=== PATIENT | male | born 1930 | race Caucasian/White ===

== ENCOUNTER 2016-10-24 19:34 | Inpatient (IN) | payer MEDICARE ==
[~2016-10-24] VITALS: Ht 176.5 cm; Wt 72.5 kg
[~2016-10-24 19:34] MED LIST: ASPI-973 PO; AZIT2.5D4 OD; CARV12.52 PO; FURO-129 PO; ISOS30TA4 PO; LORA-302 PO; NITR0.4T PO; PRED50TA PO; SODI325T PO; SYN75 PO
[2016-10-24 19:43] VITALS: BP 106/55; PULSE 77; RESP 18; O2SAT 97
--- NOTE | 2016-10-24 19:59 | ED.REPORT ---
HPI-General Illness Date of Service Oct 24, 2016 ED Provider: Jagjit Saleem MD An 85 year old male with a history of stage IV CKD, squamous cell carcinoma, CHF , COPD, diabetes, stroke and hyperlipidemia presents to the ED via EMS complaining of generalized weakness and fatigue that began a couple weeks ago. He recently had a fall 3 days ago but reports that he has been able to move around his home with the assistance of his . He presents today because of the increasingly worse fatigue. Patient has been sleeping excessively over the past few days. Patient has also been experiencing diarrhea, generalized myalgia and difficulty swallowing. Patient stopped taking Lasix 2 times per day because of dizziness and recently switched to 1 Lasix per day. Patient is not currently on dialysis. He denies fever or vomiting. Nursing Notes Stated Complaint: GENERALIZED WEAKNESS Chief Complaint: General Complaint Nursing Notes Reviewed: Yes Allergies: Coded Allergies: dabigatran etexilate (Verified Allergy, Severe, SEVERE BLEEDING, 09/07/16) heparin (Verified Allergy, Severe, Arrhymia and A. Fib, 09/07/16) cephalexin (Verified Allergy, Intermediate, Diarrhea, 09/07/16) losartan (Verified Allergy, Intermediate, Yee and diarrhea, 09/07/16) moxifloxacin HCl (Verified Allergy, Intermediate, Rash, 09/07/16) colchicine (Verified Allergy, Unknown, Diarrhea, 09/07/16) cefuroxime (Verified Adverse Reaction, Intermediate, Diarrhea, 09/07/16) Scheduled Aspirin (Aspirin) 81 Mg Tablet 81 MG PO HS Azithromycin (Azasite) 2.5 Ml Drops 2.5 ML OD BID 2 days daily 5 d 1 drop in Right eye twice a day for 2 days then 1 drop once a day for 5 additional days. Carvedilol (Carvedilol) 12.5 Mg Tablet 18.75 MG PO BIDWM Furosemide (Lasix) 20 Mg Tablet 160 MG PO DAILY Isosorbide MN ER (Isosorbide MN ER) 30 Mg Tab.er.24h 60 MG PO QAM Levothyroxine (Synthroid) 75 Mcg Tablet 75 MCG PO DAILY Prednisone (PredniSONE) 50 Mg Tablet 50 MG PO DAILY Sodium Bicarbonate (Sodium Bicarbonate) 325 Mg Tablet 650 MG PO BID Scheduled PRN Lorazepam (Ativan) 0.5 Mg Tablet 0.5 MG PO BID PRN PRN Tremor Nitroglycerin SL (Nitrostat) 0.4 Mg Tab.subl 0.4 MG PO Q5MIN PRN PRN For Chest Pain General Time Seen by MD: 19:55 Chief Complaint Weakness Hx Obtained From: Patient Arrived By: Walk-in Sudden in Onset?: No Onset Occurred: More than a week ago... (2 weeks) Symptom Duration: Since onset Quality: Painful (Generalized pain ) Radiation: : Does not radiate Severity: Current: Mild Severity: Maximum: Mild Associated with: Reports: Difficulty swallowing, Dizziness, Weakness, Denies: Fever, Vomiting Pertinent Negative: Pt denies other symptoms Recent Healthcare: No recent doctor visit, No recent hospitalization Past Medical History Past Medical History Notes: PCP: Dr. Navarrete Scientific Associate: Dr. Parmar Admitted to the hospital in February 2015, for NSTEMI, atrial fibrillation, CHF, and CAD. Patient was scheduled ablation and pacemaker insertion on discharge. Past Medical History Hx of C-diff Kidney disease stage IV squamous cell carcinoma Gout Reports: Congestive heart failure, Coronary artery disease, Diabetes mellitus, Hyperlipidemia, Hypertension, Stroke Reports: Atrial fibrillation Past Surgical History Triple A repair Lumbar spine surgery Reports: Pacemaker insertion Family History Noncontributory Smoking History Former Smoker Social History Alcohol Use: Denies alcohol use Other Social History: Good social support, , Local resident Ambulatory Status Independent Review of Systems Pt reports generalized pain, excessive sleep and difficult swallowing Full Review of Systems Constitutional: Reports: Fatigue, Malaise, Weakness - generalized, Denies: Chills, Fever Respiratory: Denies: Shortness of breath Cardiovascular: Denies: Chest pain GI: Reports: Diarrhea, Denies: Abdominal pain, Nausea, Vomiting Neurologic: Reports: Dizziness, Weakness, Denies: Change LOC Complete sys rev & neg: except as marked. Physical Exam Vital Signs Vital Signs Date Time Temp Pulse Resp B/P Pulse Ox O2 Delivery O2 Flow Rate FiO2 10/24/16 22:00 81 18 117/47 95 Room Air 10/24/16 19:43 35.8 77 18 106/55 97 Room Air Initial VS: Reviewed Head / Eyes: Atraumatic, Normocephalic, PERRL Skin: Warm, Dry, No cyanosis Neurologic: Alert, Oriented, Nonfocal Psychiatric: Mood/affect normal, Behavior normal, Normal thought content General/Constitutional: Awake, Alert Respiratory / Chest: Atraumatic RESPIRATORY: Fine base crackles Click in the upper sternal boarder Cardiovascular: Heart rate NL, Regular rhythm, Heart sounds NL, No gallop Heart Sounds / Murmur: Positive: Murmur present... (III/ machine murmur ) Lower Ext Edema: Positive: Bilateral 3+, Pitting CARDIO: Jugular vein distended Abdomen: Atraumatic, Soft, Non-tender Organomegaly / Mass / Hernia: Positive: Hepatomegaly ABDOMEN: Midline surgical scar Upper Extremities Upper Extremity / MS: Atraumatic, Neurologic intact, Vascular intact Lower Extremity / Pelvis / MS: Atraumatic, Neurologic intact, Vascular intact Interpretation & Diagnostics Lab Results Interpretation Result Diagram: 10/24/16199910/24/161999 Test 10/24/16 20:00 White Blood Count 7.3th/mm3 (3.8-10.1) Red Blood Count 3.43mil/mm3 (4.40-5.80) Hemoglobin 10.2g/dL (13.8-17.2) Hematocrit 32.3% (41.0-50.0) Mean Corpuscular Volume 94.2fL (81-100) Mean Corpuscular Hemoglobin 29.7pg (27.0-35.0) Mean Corpuscular Hemoglobin Concent 31.6% (32.0-37.0) Red Cell Distribution Width 15.5% (12.3-15.4) Platelet Count 122bil/L (150-400) Neutrophils (%) (Auto) 80.6% (40-74) Lymphocytes (%) (Auto) 6.6% (14-46) Monocytes (%) (Auto) 11.7% (4-12) Eosinophils (%) (Auto) 0.6% (0-5) Basophils (%) (Auto) 0.4% (0-3) Sodium Level 140mEq/L (134-144) Potassium Level 4.3mEq/L (3.5-5.2) Chloride Level 96mEq/L (97-108) Carbon Dioxide Level 26mmol/L (18-29) Blood Urea Nitrogen 106mg/dL (8-27) Creatinine 3.70mg/dL (0.76-1.27) Estimat Glomerular Filtration Rate 17mL/min (>59) Glucose Level 151mg/dL (60-99) Calcium Level 8.9mg/dL (8.5-10.1) Magnesium Level 2.3mg/dL (1.6-2.6) Total Bilirubin 0.8mg/dL (0.0-1.2) Aspartate Amino Transf (AST/SGOT) 12U/L (0-50) Alanine Aminotransferase (ALT/SGPT) 9U/L (0-44) Alkaline Phosphatase 94U/L (25-160) Troponin T 0.119ug/L (0.0-0.011) Pro-B-Type Natriuretic Peptide 44018pd/mL (0-486) Total Protein 7.2g/dL (6.4-8.4) Albumin 3.4g/dL (3.4-5.0) Hold Palomo Top Tube Received (Received) ECG Interpretation ECG Interpretation: Ventricular paced Rate 70 Time: 21:03 Interpreted by: ED physician X-Ray Chest Interpretation Chest Xray Interpretation: IMPRESSION: Changes more consistent with bilateral lower lobe pneumonias than of congestive failure. Dictated by: Bruno Frias M.D. on 10/24/2016 at 20:26 Interpretation / Wet Read by: Interpret - Radiologist Re-Eval/Medical Decision Med Decision/Clinical Course Elderly male with congestive heart failure and fluid overload as well as worsening chronic renal failure. Recently had diuretics titrated up and his blood pressure did not tolerate. Presenting today with profound fatigue and rising BUNs has an increased troponin and markedly increased BNP. Also chest x-ray appears to have progressed in terms of his disease. Do not believe that he has an actual infectious pneumonia based on the clinical presentation. He admitted on observation status to the hospitalist service for further evaluation and treatment. Discussed starting IV Lasix in the emergency department tonight with the admitting hospitalist and she asked that we not do that. Discussed CODE STATUS with the patient presents of his ; wishes to be full code. Time of Eval: 22:07 Patient Status: Condition improved Re-Evaluation/Progress Note: Patient is rechecked. He is informed of his lab results, EKG results, X-ray results and diagnosis. All of the patient's questions are addressed. He is asked to consider admission to the hospital. Code status is discussed. Patient would like to be full code. Consultation : Referral / Consult Name: Shirlene Arora MD Consulted With: Hospitalist Call Returned at: 22:22 Steel Sampler: Will see patient, Agrees with eval, Agrees with plan, Accepts admit Note: Patient will not receive diuretics. Counseled Regarding: Diagnosis, Lab results, Need for admission Discharge & Departure Primary Impression: Acute renal failure Acute renal failure type: unspecified Qualified Code: N17.9 - Acute kidney failure, unspecified Additional Impression: Congestive heart failure Congestive heart failure type: unspecified congestive heart failure type Congestive heart failure chronicity: unspecified congestive heart failure chronicity Qualified Code: I50.9 - Heart failure, unspecified Disposition: ADMITTED TO HOSPITAL Discharge Condition All VS Reviewed: Yes Condition: Stable Referrals: Mino Navarrete MD (PCP) Scribe Attestation Portions of this note were transcribed by Ab Mendiola. I, Dr. Saleem personally performed the history, physical exam and medical decision-making; I reviewed and confirmed the accuracy of the information in the transcribed note. Signed by: Ab Mendiola, 10/24/16, 2230. copies to: Mino Navarrete MD; Ganga Parmar Donald L MD Oct 24, 2016 19:59 AB MENDIOLA Oct 24, 2016 20:29
[2016-10-24 20:18] LABS: BASOPHILS % (AUTO) 0.4 % (0-3); EOSINOPHILS % (AUTO) 0.6 % (0-5); MONOCYTES % (AUTO) 11.7 % (4-12); Mean Corpuscular Hemoglobin 29.7 pg (27.0-35.0); Mean Corpuscular Volume 94.2 fL (81-100); NEUTROPHILS % (AUTO) 80.6 % (40-74); Platelet Count 122 bil/L (150-400)
--- NOTE | 2016-10-24 20:29 | DRSVH ---
PROCEDURE: X-RAY CHEST ONE VIEW, PORTABLE ([id number]) INDICATIONS: weakness TECHNIQUE: One view of the chest was acquired. COMPARISON: [facility], CR, XR CHEST 2VW, 09/11/2016, 17:22. 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 Lungs and pleura: No pleural effusions or pneumothorax. There are by lateral retrocardiac basilar pa tchy density consistent with bilateral lower lobe pneumonias. Differential would be chronic congestiv e failure which I think is less likely to be occurring. Mediastinum: Mediastinal contours appear normal. Heart size is normal. Bones and chest wall: No suspicious bony lesions. Overlying soft tissues appear unremarkable. IMPRESSION: Changes more consistent with bilateral lower lobe pneumonias than of congestive failure. Dictated by: Bruno Frias M.D. on 10/24/2016 at 20:26 Approved by: Bruno Frias M.D. on 10/24/2016 at 20:26
[2016-10-24 20:50] LABS: Magnesium 2.3 mg/dL (1.6-2.6)
[2016-10-24 20:58] LABS: TROPONIN T 0.119 ug/L (0.0-0.011)
[2016-10-24 22:00] VITALS: BP 117/47; PULSE 81; RESP 18; O2SAT 95
[2016-10-24] MEDS ORDERED: Furosemide 10 mg/mL 10 mL Inj IVPUSH ONE (22:20)
[2016-10-24 23:36] VITALS: PULSE 74
[2016-10-24 23:41] LABS: APPEARANCE,URINE SLIGHTLY CLOUDY (CLEAR,HAZY); COLOR,URINE YELLOW (YELLOW); OCCULT BLOOD,URINE MODERATE (NEGATIVE); PH,URINE 5.5 (5.0-8.0); UROBILINOGEN,URINE NORMAL (NORMAL)
[2016-10-24 23:43] VITALS: BP 116/70; PULSE 81; RESP 18; O2SAT 95
[2016-10-25] VITALS (7 sets, daily range): BP systolic 107–118; BP diastolic 63–82; PULSE 70–78; RESP 18–20; O2SAT 94–97
[2016-10-25] MEDS ORDERED: Alum-Mag Hydrox-Simeth 30 mL Suspension PO PRN (00:30)
[2016-10-25] MEDS ORDERED: Polyethylene Glycol (PEG) 17 Gm Powder PO PRN (00:30)
[2016-10-25] MEDS ORDERED: Ondansetron 2 mg/mL 2 mL Inj IVPUSH PRN (00:30)
[2016-10-25] MEDS ORDERED: Senna-Docusate 8.6-50 mg Tablet PO PRN (00:30)
--- NOTE | 2016-10-25 01:15 | NUR ---
Admit note: Pt admitted from ER, was able to ambulate with one assist to the bed, denied dizziness. Alert and oriented x3. Has been ill over the last couple of weeks with increased weakness and decreased appetite the last couple of days. Denies shortness of breath, although states over the last month he occasionally has to breath deep to "catch his breath". Pt is on RA 95%. Slightly decreased lung sounds in the bases with faint crackles. Pt states he is supposed to eat a "mushy, thick liquid" diet; not always compliant per . Tele AV paced in the 70s per telephone clerk telegraph office. Bed alarm activated and pt aware to call for safe assistance as needed for pt safety.
[2016-10-25 01:46] LABS: INR 1.16 ratio
--- NOTE | 2016-10-25 03:24 | PCM.HPMED ---
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 Patient is accompanied by his , who is his primary drive man, to the ED. They both report that he has been increasingly fatigued, somnolent, and dyspneic in the past couple of weeks, but worse in the last few days. reports that patient has been laboring to breath more in the past few days. They deny any fever, cough, sick contact, anginal symptoms, or N/V/D. He has had 2-3 BMs daily, but this is his baseline and the stool is not watery or bloody. He denies any dysuria but endorses some frequency due to his Lasix. His oral intake has been decreasing and he has experienced some weight loss. reports that patient did experience a fall 3 days ago, but it was not very traumatic and patient did not lose consciousness or hit his head. He simply slipped out of his chair onto the ground. He does have chronic dysphagia, likely from the SCC and radiation of his neck. He is on a "mushy" renal diet at home. Patient reports that he saw his alumni relations coordinator recently and was recommended to increase his Lasix to 160mg daily due to the increase edema of his legs. reports that patient did do this for a few days but developed dizziness, so his [facility] instructed him to return to 80mg daily, which he is currently taking. In the ED, patient's EKG showed ventricular paced rhythm with rate of 70. His CBC shows Hct of 32.3, which is his baseline. He did have increased neutrophils of 80.6%, with WBC of 7.3. His CMP was pertinent for BUN of 106 with Creatinine of 3.70, which are both elevated compared to his baseline CKD. His Troponin was elevated at 0.119, which is his baseline. [place] BNP was 385[address], which is almost double the value from about 1 month ago. His TSH was elevated at 5.68 and his FT4 was 8.04. He was not given any Lasix in the ED. Patient's UA did reveal moderate blood, Large Leukocytes, and packed urine WBC. Patient did have an Echocardiogram from 07/2016 which showed LVEF of 30-35% with moderate to severe MR and moderate right sided pleural effusion. Review of Systems: 12 point ROS negative except as stated in HPI Allergies Coded Allergies: dabigatran etexilate (Verified Allergy, Severe, SEVERE BLEEDING, 10/25/16) heparin (Verified Allergy, Severe, Arrhymia and A. Fib, 10/25/16) cephalexin (Verified Allergy, Intermediate, Diarrhea, 10/25/16) losartan (Verified Allergy, Intermediate, Yee and diarrhea, 10/25/16) moxifloxacin HCl (Verified Allergy, Intermediate, Rash, 10/25/16) colchicine (Verified Allergy, Unknown, Diarrhea, 10/25/16) cefuroxime (Verified Adverse Reaction, Intermediate, Diarrhea, 10/25/16) Home Medications From [employer] Accu-Chek Advantage Diabetes Kit check blood sugar 1-2 times every week allopurinol 100 mg tablet take 1 tablet by oral route once every day as needed. Aspirin Low Dose 81 mg tablet,delayed release take 1 tablet by oral route every day atorvastatin 40 mg tablet take 1 tablet by oral route every day for high cholesterol. Blood Glucose Monitoring kit use to check blood sugar 1 time daily Blood Glucose Test strips use to check blood sugar 1 times daily Coreg 25 mg tablet take 1 tablet by oral route 2 times every day with food Epogen 3,000 unit/mL injection solution inject (100UNITS/KG) by subcutaneous route every week fluticasone 50 mcg/actuation nasal spray,suspension spray 2 spray by intranasal route every day in each nostril as needed furosemide 80 mg tablet take 1 tablet by oral route every day isosorbide mononitrate ER 30 mg tablet,extended release 24 hr Take 3 tablets by oral route every day in the morning levothyroxine 75 mcg tablet take 1 tablet by oral route every day nitroglycerin 0.[address] 1 tablet by sublingual route at the 1st sign of attack; may repeat every 5 min until relief; if pain persists after 3 tablets in 15 min, prompt medical attention is recommended sodium bicarbonate 325 mg tablet take 2 tablets orally twice daily. PMH PMH Past Medical History 1. Atrial fibrillation, paroxysmal- not on anticoagulation due to bleeding history 2. Congestive heart failure 3. Coronary artery disease, with myocardial infarction in 1984, and probable acute coronary syndrome in 2012, NSTEMI 02/28 (no interventions) 4. Hyperlipidemia. 5. Diabetes mellitus type 2, diet controlled. 6. Abdominal aortic aneurysm, status post repair. 7. Chronic kidney disease, stage 4 8. H/O Gout. 9. Hypothyroidism. 10. Hypertension. 11. Bilateral carotid stenosis. 12. History of C. difficile colitis, 2012. 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 14. Chronically elevated troponin. 15. History of squamous cell carcinoma of the skin. Status post Mohs surgery in October 2014 and radiation. Surgical History 1. Abdominal aortic aneurysm repair. 2. Back surgery. 3. Right total hip arthroplasty. 4. Tonsillectomy. 5. Skin cancer excision, right neck. 6. AV camilla ablation with pacemaker 02/28 Family History Noncontributory Social History Hx Alcohol Use: Yes (occassionally) Hx Substance Use: No Hx Tobacco Use: Yes Smoking Status: Former Smoker Additional Information Patient is a local resident. Lives with his in [place]. 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 Quit smoking tobacco in 1994 after around [id number] history. Rare alcohol ingestion. Currently uses 4WW for ambulation assist. At most, can only ambulate from bedroom to bathroom before getting dyspneic. Exam Vital Signs Vital Sign - Last Date Time Temp Pulse Resp B/P Pulse Ox O2 Delivery O2 Flow Rate FiO2 10/24/16 23:12 36.1 80 18 114/53 94 Room Air Exam Gen: Thin male in NAD HEENT: PERRL, EOMI, Oropharynx non-erythematous, neck soft and nontender CV: RRR with 3/6 systolic murmur, JVD noted to angle of jaw. Resp: Soft bibasilar rales, no wheezing or rhonchi Abd: Soft, nontender, normoactive BS MSK: Muscle strength grossly intact and equal Neuro: Light sensation grossly intact and equal, Alert and Oriented x3 Skin: Warm Dry Intact. Numerous ecchymosis of arms. Psych: Appropriate mood and affect Lab and Diagnostics Result Diagram: 10/24/16199910/24/161999 X-Rays, CTs and MRIs PROCEDURE: X-RAY CHEST ONE VIEW, PORTABLE ([id number]) INDICATIONS: weakness TECHNIQUE: One view of the chest was acquired. COMPARISON: [facility], CR, XR CHEST 2VW, 09/11/2016, 17:22. 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 Lungs and pleura: No pleural effusions or pneumothorax. There are by lateral retrocardiac basilar patchy density consistent with bilateral lower lobe pneumonias. Differential would be chronic congestive failure which I think is less likely to be occurring. Mediastinum: Mediastinal contours appear normal. Heart size is normal. Bones and chest wall: No suspicious bony lesions. Overlying soft tissues appear unremarkable. IMPRESSION: Changes more consistent with bilateral lower lobe pneumonias than of congestive failure. 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 Generalized Weakness -Likely secondary to Acute Exacerbation of CHF due to elevated JVD, BNP-88932, increased SOB, and peripheral edema, but DDx includes Pneumonia, UTI, Uremia -Plan to increase IV Lasix to 80mg BID. -Continue to closely monitor I/Os Hyperthyroidism -TSH 5.68, FT4 of 8.04 -DDx Apathetic Thyrotoxicosis, Thyroiditis, malignancy, pituitary tumor. -Consider imaging workup and methimazole -Hold Levothyroxine. Chronic Kidney Disease, Stage IV, POA -Patient's most recent SCr was 3.13 with BUN of 94. Current Phos is 6.2. -Patient does receive Neupogen injections for his chronic Anemia secondary to renal disease. -Continue Sodium Bicarb -Nephrology Consult pending. Chronic Dysphagia, POA -Secondary to SCC of neck s/p radiation. -Dysphagia Mechanical Diet Paroxysmal Atrial Fibrillation, POA -Place patient on Telemetry -EKG shows functional pacemaker with ventricular pacing, rate of 70. -Not on anticoagulation due to bleeding history CAD, POA -Per alumni relations coordinator notes, patient is medically treated due to CKD. -Continue Coreg 25mg BID, Atorvastatin, Isosorbide Mononitrate ER -Continue ASA 81mg DM2, POA -Diet Controlled, stable Abnormal UA, -Large Leukocytes, urine WBC cast, and moderate blood -Pt denies any urinary symptoms besides some frequency, which is baseline for him. -Cultures pending. Pain Evaluation: Adequate Pain Control Resuscitation Status: CPR: Attempt Resuscitation (DPOA is his Yvrose) Attending Statement Pt seen and examined by myself and agree with above plan. Aditya Head DO Oct 24, 2016 23:27 Shirlene Arora MD Oct 25, 2016 18:56
[2016-10-25] MEDS ORDERED: Furosemide 10 mg/mL 10 mL Inj IVPUSH SCH ×2 (03:35→08:30)
[2016-10-25] MEDS ORDERED: ZYL100 PO (05:17)
[2016-10-25] MEDS ORDERED: ATOR40TA69 PO (05:17)
[2016-10-25] MEDS ORDERED: FLUT15.88 NS (05:17)
[2016-10-25] MEDS ORDERED: EPOE3000 IJ (05:17)
[2016-10-25] MEDS ORDERED: FRSM80T PO (05:17)
[2016-10-25] MEDS ORDERED: CARV25TA2 PO (05:17)
[2016-10-25 05:24] LABS: BASOPHILS % (AUTO) 0.6 % (0-3); EOSINOPHILS % (AUTO) 0.9 % (0-5); MONOCYTES % (AUTO) 10.7 % (4-12); Mean Corpuscular Volume 93.5 fL (81-100); NEUTROPHILS % (AUTO) 77.1 % (40-74); Platelet Count 114 bil/L (150-400)
[2016-10-25 06:01] LABS: Phosphorus 6.1 mg/dL (2.5-4.9)
[2016-10-25] MEDS ORDERED: Potassium Chloride 20 mEq/15 mL 15mL Oral Soln PO ONE (07:45)
[2016-10-25] MEDS ORDERED: Aztreonam Inj 500 MG in Dextrose 5% 50 ML IV SCH (08:30)
[2016-10-25] MEDS ORDERED: 0.9% Sodium Chloride 250 ML ONE (09:01)
[2016-10-25] MEDS: Sodium Chloride LOK Flush 10 mL Syringe IVFLUSH SCH ×3 (09:15→14:38)
[2016-10-25] MEDS: Isosorbide Mononitrate 30 mg ER24 Tablet PO SCH (09:16)
[2016-10-25] MEDS ORDERED: 0.9% Sodium Chloride 1,000 ML IV SCH (10:55)
[2016-10-25] MEDS: cefTRIAXone Inj 1,000 MG in IV Premix 1 EACH IV SCH (11:29)
--- NOTE | 2016-10-25 14:34 | NUR ---
Social Work-initial assessment: Data:See initial assessment. Pt is a 85 y/o male who was admitted on 10/24/16 for CHF per H&P. Pt's insurance is [employer] and PCP is Mino Navarrete MD. EMR Reviewed. SW met with pt and Yvrose at bedside to discuss discharge planning, SW role explained. Pt resides at home with his where he remains independent with basic ADLS. Pt does not drive and uses a fww at baseline. Pt has had HH, but they did not like pt having to be homebound. Pt has also been to [facility]. Pt has no cable inspector care insurance, but does have [facility] benefits. SW discussed DPOA/ advanced directive, states she will bring this information in to the hospital. wonders about hiring help at home, SW explained that insurance will not cover this. wonders about the [facility]. SW explained that would need to get in contact with the [facility] to see if they would assist with caregiving. is hopeful for pt to return home. SW to follow for needs. SW placed phone number and plan on white board in room. Pt's to provide transport. SW will continue to follow. Assessment:pt who is independent at baseline. Plan:Pt to likely discharge home with , SW to follow for needs. SW Will continue to follow. FANTA Mejias Addendum: 10/25/16 at 1438 by VANE LINARES SS Amended: Links added.
--- NOTE | 2016-10-25 15:56 | PCM.CHPMED ---
Subjective Primary Physician: Admitting Physician: Shirlene Arora MD Primary Care Physician: Mino Navarrete MD Attending Physician: Shirlene Arora MD History of Present Illness: This is a very pleasant 85-year-old male with a significant past medical history of chronic kidney disease stage IV, hypertension, CHF, type II diabetes and coronary artery disease, paroxysmal atrial flutter status post ablation and pacemaker placement, CVA, dyslipidemia presented to the hospital due to weakness. Patient was recently evaluated by customer service rep on September. At that time he had significant pitting edema. Diuretic was increased , furosemide 160 mg daily. According to his patient is having poor appetite and losing weight. He no longer has lower extremity swelling. Patient was seen by my partner, Dr. Parmar in August 2016. His serum creatinine at that time was 3. He was told that he would need dialysis soon. His initial serum BUN and creatinine were 106 and 3.7 [place]. [place] [address]. UA showed moderate blood, packed WBC. Echocardiogram in July to October 01 showed ejection fraction of 30-35%, moderate to severe MR and moderate right sided pleural effusion. During my visit, patient is having watery diarrhea. Per his he did not have diarrhea at home. The stool was more formed. He is complaining of being thirsty, dry mouth. At home he was feeling dizzy and experienced a ground-level fall without significant head injury. Patient has no chest pain, no shortness of breath, no fever, no chills , no dysuria, no hematuria. PMH 1. Atrial fibrillation/flutter, paroxysmal s/p AV node ablation. 2. Congestive heart failure. 3. Coronary artery disease. 4. Hyperlipidemia. 5. Diabetes mellitus type 2, diet controlled. 6. Abdominal aortic aneurysm, status post repair. 7. Chronic kidney disease, stage 4 8. H/O Gout. 9. Hypothyroidism. 10. Hypertension. 11. Bilateral carotid stenosis. 12. History of C. difficile colitis, 2012. 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 14. Chronically elevated troponin. 15. History of squamous cell carcinoma of the skin. Status post Mohs surgery in October 2014 and radiation. Surgical History 1. Abdominal aortic aneurysm repair. 2. Back surgery. 3. Right total hip arthroplasty. 4. Tonsillectomy. 5. Skin cancer excision, right neck. 6. AV camilla ablation with pacemaker 02/28 Family History Noncontributory Social History Hx Alcohol Use: Yes (occassionally) Hx Substance Use: No Hx Tobacco Use: Yes Smoking Status: Former Smoker Additional Information Patient is a local resident. Lives with his in [place]. 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 Quit smoking tobacco in 1994 after around [id number] history. Rare alcohol ingestion. PMH Bedside Blood Glucose: 140 Allergies: Coded Allergies: dabigatran etexilate (Verified Allergy, Severe, SEVERE BLEEDING, 10/25/16) heparin (Verified Allergy, Severe, Arrhymia and A. Fib, 10/25/16) cephalexin (Verified Allergy, Intermediate, Diarrhea, 10/25/16) losartan (Verified Allergy, Intermediate, Yee and diarrhea, 10/25/16) moxifloxacin HCl (Verified Allergy, Intermediate, Rash, 10/25/16) colchicine (Verified Allergy, Unknown, Diarrhea, 10/25/16) cefuroxime (Verified Adverse Reaction, Intermediate, Diarrhea, 10/25/16) Social History Hx Alcohol Use: Yes (occassionally)Hx Substance Use: NoHx Tobacco Use: Yes Smoking Status: Former Smoker Exam Vital Signs Vital Sign - Last Date Time Temp Pulse Resp B/P Pulse Ox O2 Delivery O2 Flow Rate FiO2 10/25/16 15:13 36.4 70 20 116/82 95 Room Air Intake and Output 10/24/16 10/24/16 10/25/16 Cumulative From/Thru 15:00 23:00 07:00 10/24/16 19:43 - 10/25/16 06:48 Intake Total 200 ml 200 ml Output Total 500 ml 500 ml Balance -300 ml -300 ml Intake Oral 200 ml 200 ml Output Urine Total 500 ml 500 ml General: Cooperative, No Acute Distress Head: Normal, Skull Deformity, Tenderness Eyes: PERRLA, EOMI, Scleral Anicteric Nose: Dry membranes Mouth: Mucous Membranes Dry Neck: Supple, No Thyromegaly Chest & Lungs: Chest Wall Normal, Auscultation, Crackles (at bases) Cardiovascular: Regular Rate/Rhythm, Normal S1, Normal S2, Murmur (systolic) Abdomen: Non-tender, Non-distended, No hepatosplenomegaly Musculoskeletal: Unremarkable, Normal Range of Motion Extremities: No cyanosis/clubbing/edma bilat, Normal bilaterally Lab and Diagnostics Result Diagram: 10/25/16 0505 10/25/16 0505 Assessment & Plan Assessment 1. Acute kidney injury on chronic kidney disease stage IV - According to his patient's losing weight, no longer has lower extremity swelling, complaining of dizziness. His blood pressure is on the low side. - BUN and creatinine ratio is elevated - Differential diagnosis: Secondary to possible over diuresis, poor oral intake , UTI, need to rule out obstructive uropathy - For now I will hold diuretics and give gentle IV fluid for overnight. We will reassess his volume status on a daily basis. - No urgent dialysis indicated at this moment. 2. Generalized weakness - Rather multifactorial: Intravascular volume depletion, infection, uremia, failure to thrive due to chronic systolic heart failure 3. New onset diarrhea - We will order stool C. difficile 4. Pyuria, pending for urine culture. - We will order Jefferson catheter insertion - Continue IV ceftriaxone. 5. Chronic systolic heart failure 6. 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 7. Anemia in CKD, will repeat iron panel in am. Thank you for allowing me to participate in the care of your patient. We will follow along with you Problems: Pain Evaluation: Adequate Pain Control VTE Mechanical Devices: Intermittant Pneumatic CD Resuscitation Status: CPR: Attempt Resuscitation (DPOA is his Yvrose) Fermin Whaley MD Oct 25, 2016 15:39
--- NOTE | 2016-10-25 16:44 | DRSVH ---
[facility] [address] [place] [address] Echocardiogram Report Name: GABRIEL HOLLEY CStudy Date: 10/25/2016 Height: 69.5 in Hospital Exam Location: [facility] Weight: 165 lb Gender: Male BSA: 1.9 m2 : 1930 Age: 85 yrs BP: 108/64 mmHg Ordering Physician: HOSPITALIST SVHPerformed By: Fer Gastelum Referring Physician: ALFREDO BOLDEN Interpretation Summary The left ventricle is normal in size. The ejection fraction is estimated to be 20-25% (In 07/2015, it was about 30- 35%). Compared to the prior exam, the left ventricular function is reduced. The right ventricle is normal size. The right ventricular systolic function is normal.There is a pacemaker lead in the right ventricle. There is moderate to severe mitral regurgitation. Flow reversal noted in pulmonary veins consistent with significant mitral regurgitation. Compared to the prior echo study, there has been no change in the severity of mitral regurgitation. The aortic valve is not well visualized. The aortic valve is heavily calcified. The calculated aortic valve area is 0.84 cm2. The peak aortic velocity is 2.6 m/sec. The aortic valve mean gradient is 14.4 mmHg. The peak aortic velocity on the previous exam was 2.6 m/sec. There is moderate tricuspid regurgitation. Compared to the prior echo exam, there has been an increase in TR severity. The right ventricular systolic pressure is estimated at 57 mmHg assuming a right atrial pressure of 15 mm Hg. Compared to the prior echo exam, there has been an increase in the severity of pulmonary hypertension. Consider low dose Dobutamine echo to distinguish low flow severe versus true . Procedure: A two-dimensional transthoracic echocardiogram with color flow and Doppler was performed. The study quality was technically adequate. A contrast injection of Definity was performed to improve assessment of LV function. Comparison is made with the echocardiogram of 08/12/16. The patient was in normal sinus rhythm during the exam. Left Ventricle: The left ventricle is normal in size. There is normal left ventricular wall thickness. The LVOT velocity is 0.6 m/s. There is no thrombus. The ejection fraction is estimated to be 20-25%. Compared to the prior exam, the left ventricular function is reduced. There is akinesis and scarring of the basel 2/3 of the inferior wall and the septum. There is moderate to severe global hypokinesis of the left ventricle. Assessment of diastolic parameters indicates a restrictive filling pattern of the left ventricle consistent with significantly elevated filling pressures. Right Ventricle: The right ventricle is normal size. There is a pacemaker lead in the right ventricle. The right ventricular systolic function is normal. Atria: The left atrium is severely dilated. The left atrium has mildly increased in size since the prior echo exam. The right atrium is moderately dilated. There is a catheter/pacemaker lead seen in the right atrium. The right atrium has remained unchanged in size since the prior echo exam. The interatrial septum is intact with no evidence for an atrial septal defect. Mitral Valve: The mitral valve leaflets are moderately calcified. There is mild to moderate mitral annular calcification. calcified, nodular fibrosis of the tip of the anterior leaflet as well as mild to moderate tenting of the mitral leaflets due to ischemic LV dysfunction. There is moderate to severe mitral regurgitation. Flow reversal noted in pulmonary veins consistent with significant mitral regurgitation. Compared to the prior echo study, there has been no change in the severity of mitral regurgitation. Aortic Valve: The aortic valve is not well visualized. The aortic valve is heavily calcified. The peak aortic velocity is 2.6 m/sec. The calculated aortic valve area is 0.84 cm2. The aortic valve area indexed to the BSA is 0.44 . The aortic valve mean gradient is 14.4 mmHg. The peak aortic velocity on the previous exam was 2.6 m/sec. There is trace aortic regurgitation. Tricuspid Valve: The tricuspid valve is normal. There is moderate tricuspid regurgitation. The right ventricular systolic pressure is estimated at 57 mmHg assuming a right atrial pressure of 15 mm Hg. Compared to the prior echo exam, there has been an increase in TR severity. Compared to the prior echo exam, there has been an increase in the severity of pulmonary hypertension. Pulmonic Valve: The pulmonic valve is not well visualized. Great Vessels: The aortic root is normal size. The ascending aorta could not be visualized. The pulmonary artery is normal size. The IVC is dilated (diameter is greater than 2.1 cm) and it collapses less than 50% with a sniff. This suggests a high right atrial pressure of 15 mm Hg. Pericardium/ Pleura There is no pericardial effusion. There is no pleural effusion. MMode/2D Measurements & Calculations LVIDd: 5.1 cm RA long axis: 5.4 cm LVOT diam LVIDs: 4.8 cm LA A2 area: 27.9 cm FS: 6.2 % LA A4 area: 25.9 cm RA area: 22.8 cm Ao root diam EPSS: 1.1 cm LA length (vol): 6.1 cm RA vol: 81.8 ml : 3.3 cm IVSd: 0.75 cm LA vol: 100.6 ml RA : 42.8 ml/m2 LVPWd: 0.79 cm LA vol index: 52.5 ml/m IVC diam: 2.3 cm EDV(MOD-sp2) LV francisco. diameter/BSA LV sys. diameter/BSA RVD1 (basal) : 110.0 ml (cm/m^2): 2.7 (cm/m^2): 2.5 : 3.9 cm RVD2 (mid) TAPSE: 1.2 cm : 2.4 cm Doppler Measurements & Calculations Ao V2 max MV E max lefty MV E/A: 2.5 TR max lefty : 256.6 cm/sec : 99.7 cm/sec Med Peak E' Lefty : 322.3 cm/sec Ao max P.3 mmHg MV A max lefty TR max PG Ao mean P.4 mmHg : 39.8 cm/sec E/E' med: 28.7 : 41.5 mmHg LVOT Max Lefty Lat Peak E' Lefty : 62.9 cm/sec MVA(VTI): 1.7 cm MR ERO: 0.34 cm2 E/E' lat: 15.5 RADHA(I,D): 0.84 cm sev ratio: 0.21 MV V2 mean Ao V2 mean LV V1 max PG MR flow rate : 64.7 cm/sec : 179.8 cm/sec : 144.8 cm3/sec MV mean P.2 mmHg Ao V2 VTI LV V1 VTI MR PISA radius MV V2 VTI: 29.1 cm : 12.5 cm MV dec time: 0.14 sec RADHA(V,D) : 0.97 2m RADHA indexed to BSA E/e' average (cm^2/m^2): 0.44 : 22.1 Reading Physician:PM
--- NOTE | 2016-10-25 16:51 | NUR ---
Evaluation completed. Rec: Stim diet (pureed only). AGENCY SERVICE REPRESENTATIVE to follow Please go to "Notes" then click on "Assessments and Notes" (bottom left corner of screen). Then select appropriate discipline tab on top of screen.
[2016-10-26] VITALS (8 sets, daily range): BP systolic 115–126; BP diastolic 64–77; PULSE 69–79; RESP 18–20; O2SAT 90–97
[2016-10-26] MEDS: Sodium Chloride LOK Flush 10 mL Syringe IVFLUSH SCH ×3 (00:30→17:19)
--- NOTE | 2016-10-26 04:39 | NUR ---
Uneventful Night Pt rested intermittently through the night. No complaints of pain or discomfort. !PA up to chair, unsteady on feet. Heels floated on pillows, Frequent turning during the night. SCD's on pt. Pleasant and cooperative with care.
[2016-10-26 05:52] LABS: BASOPHILS % (AUTO) 0.5 % (0-3); EOSINOPHILS % (AUTO) 0.6 % (0-5); MONOCYTES % (AUTO) 10.2 % (4-12); Mean Corpuscular Hemoglobin 30.4 pg (27.0-35.0); Mean Corpuscular Volume 94.7 fL (81-100); Platelet Count 128 bil/L (150-400)
[2016-10-26 06:43] LABS: Magnesium 2.2 mg/dL (1.6-2.6); Phosphorus 5.9 mg/dL (2.5-4.9); Unsaturated Iron Binding 215.3 ug/dL
[2016-10-26] MEDS: Isosorbide Mononitrate 30 mg ER24 Tablet PO SCH (09:02)
[2016-10-26] MEDS: cefTRIAXone Inj 1,000 MG in IV Premix 1 EACH IV SCH (09:03)
[2016-10-26] MEDS ORDERED: Darbepoetin Alfa 40 mCg/0.4 mL Inj SUBQ ONE (11:20)
[2016-10-26] MEDS ORDERED: Iron Sucrose Inj 200 MG in 0.9% Sodium Chloride 100 ML IV ONE (11:25)
--- NOTE | 2016-10-26 12:30 | PCM.PNMED ---
Subjective Date of Service Oct 26, 2016 Subjective pt looked better, more lucid, still weak. had UOP 1.1liters, net -400 with lasix, later stopped, n/s 80cc continued per renal recs denied sob, cough, pt briefly confirmed Full Code, agreed on assessment from palliative care today eating breakfast w/o dysphagia, Exam Vital Signs Vital Sign - Last Date Time Temp Pulse Resp B/P Pulse Ox O2 Delivery O2 Flow Rate FiO2 10/26/16 10:11 36.4 69 20 119/72 94 Room Air Intake and Output 10/25/16 10/25/16 10/26/16 Cumulative From/Thru 15:00 23:00 07:00 10/24/16 19:43 - 10/26/16 06:39 Intake Total 509 ml 581 ml 1290 ml Output Total 750 ml 400 ml 1650 ml Balance -241 ml 181 ml -360 ml Intake Oral 113 ml 0 ml 313 ml IV Total 396 ml 581 ml 977 ml Output Urine Total 750 ml 400 ml 1650 ml # Bowel Movements 2 0 2 IVs and Medications Medications Reviewed: Medications were reviewed in detail Lab and Diagnostics Result Diagram: 10/26/1651910/26/16 05 X-Rays, CTs and MRIs PROCEDURE: X-RAY CHEST ONE VIEW, PORTABLE ([id number]) INDICATIONS: weakness TECHNIQUE: One view of the chest was acquired. COMPARISON: [facility], CR, XR CHEST 2VW, 09/11/2016, 17:22. 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 Lungs and pleura: No pleural effusions or pneumothorax. There are by lateral retrocardiac basilar patchy density consistent with bilateral lower lobe pneumonias. Differential would be chronic congestive failure which I think is less likely to be occurring. Mediastinum: Mediastinal contours appear normal. Heart size is normal. Bones and chest wall: No suspicious bony lesions. Overlying soft tissues appear unremarkable. IMPRESSION: Changes more consistent with bilateral lower lobe pneumonias than of congestive failure. 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 acute, active #Generalized Weakness, POA, multifactorial with intravascular volume depletion from recently increased diuretics, advanced HF with hypercatabolic state, possible UTI. improving however, likely not to make huge progress. -will start PT, advance diet as tolerate -diuresis, abx as below #acute dyspnea secondary to fluid overload w/ ADHF in the setting of CKDIV, POA , repeat TTE showed decreased EF20-25% from 30-35% in , [id number] -s/p lasix 120mg iv on admission, stopped and tried n/s 80cc per renal recs as suspected intravascular vol depletion. -appreciate further diuresis dosing per renal team -continue coreg, -strict i/o via low, daily wt #KAYLEE on CKDIV, POA, eGFR close to ESRD, severe uremia, no obvious s/s of uremic Cx -appreciate renal input, avoid renal toxin, adjust meds, continue bicarb, weekly Epogen #presumed UTI, POA, UA+, UCX ngtd, asymptomatic. -started CFX qd on admission, likely to stop if final UCX negative chronic, stable #DM2, POA, diet Controlled, stable #Hyperthyroidism, Euthyroid state, continue Levothyroxine.75mcg #Chronic Dysphagia, POA, secondary to SCC of neck s/p radiation, continue dysphagia Mechanical Diet, appreciate speech eval recs. pt did tolerate diet today. #Paroxysmal Atrial Fibrillation, POA, Not on anticoagulation due to bleeding history #CAD hx of OR in 1984, and probable acute coronary syndrome in 2012, NSTEMI (no interventions), TTE showed worsening EF, stable mod-severe MR. 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 diet: dysphagia, MBBS today, appreciate s/s eval VTE Mechanical Devices: Intermittant Pneumatic CD Resuscitation Status: CPR: Attempt Resuscitation (DPOA is his Yvrose) Time spent 35min Justin Love MD Oct 26, 2016 12:30
--- NOTE | 2016-10-26 12:31 | NUR ---
Palliative Care Palliative Care received order from Dr Love 10/26/16 to assist with goals of care. Patient is an 85 year old man with history of CKD stage IV, HTN, CHF, DM2, CAD, paroxysmal atrial flutter s/p ablation and pacemaker placement, CVA and dyslipidemia. He presented with weakness on 10/24/16 and was admitted. Patient lives at home with his . Yvrose Mansfield () [phone] Frank Fredrick (daughter) [phone] Palliative Care to follow. Kassy Card
--- NOTE | 2016-10-26 13:57 | NUR ---
Barium Swallow Study Confirmed need with provider. Pt up to chair or EOB for meals. Pt escorted to study via w/c with transport with at bedside. Tele notified. Returned from study with transport and and reports test tolerated with coughing. Pasty white noted in mouth and mouth care performed.
--- NOTE | 2016-10-26 15:40 | DRSVH ---
PROCEDURE: X-RAY BARIUM SWALLOW WITH FOOD & VIDEOGRAPHY ([id number]) INDICATIONS: dysphagia TECHNIQUE: Examination was conducted in conjunction with speech pathology per standard protocol. In the lateral projection, filming was performed of the patient swallowing. AP projection filming may also be performed with patient swallowing. COMPARISON: [facility], CR, XR BARIUM SWALLOW FOOD & VIDEO, 05/07/2016, 9:34. FINDINGS: Function: The oral preparatory phase appears normal, with proper containment. The subsequent oral pr opulsive phase, pharyngeal phase, and esophageal phase of swallowing also appear normal with all prof fered substances. There is, however, quite frequent laryngotracheal penetration and aspiration. Mod erate pathologic vallecular pooling. Morphology: No cricopharyngeal bar is identified. No cervical esophageal webs. No Zenker's diverti culum. No strictures. IMPRESSION: Quite frequent anterior laryngotracheal penetration and aspiration observed with thin and honey thick fluids. The study was terminated early due to the recurrent episodes of aspiration. Dictated by: Frankie Munguia M.D. on 10/26/2016 at 15:38 Approved by: Frankie Munguia M.D. on 10/26/2016 at 15:38
--- NOTE | 2016-10-26 15:41 | NUR ---
NUTRITION ASSESSMENT: ASSESS: 85yo male admitted to the hospital w/ general weakness and fatigue. Pt and state weakness started a couple weeks ago, but progressively worsened in the last few days. Pt and also report he has experienced some wt loss as well. reports pt consumes mushy renal diet at home and suffers from chronic dysphagia. Diet advanced per ST today. Per notes, pt is more alert but still weak. PMHX: Afib, CHF, CAD, HLD, DM II, stage IV CKD, Gout, HTN, Hypothyroidism, Bilateral Carotid Stenosis, Heparin-induced Thrombocytopenia, Squamous Cell Carcinoma, Abdominal Aortic Aneurysm LABS: BUN 104, [employer] [place] [facility] 3.46, Gluc 138, Phos 5.9, Iron 31, TIBC 246, % Sat 13, Alb 3.1 MEDS: Sodium Bicarbonate, Synthroid GI: BMx2 (10/25) SKIN: [place] 18 CURRENT WTS: 73.0 kg BMI: 23.4 kg/m2 ADMIT WT: 74.8 kg UBW: Average 90kg (2012) 18.9% wt loss in last three years (significant) DIET: Pureed pudding thick liquids EST. NEEDS: Stage IV CKD, significant wt loss Kcals: 7773-4501 kcal/day (25-35 kcal/kg) Pro: 60-75 kg/day (0.8-1.0g/kg) NUTRITION DIAGNOSIS: 1.) Chewing/swallowing difficulties related to muscular weakness as evidenced by altered texture diet per ST evaluation. 2.) Inadequate oral intake related to muscle weakness and squamous cell carcinoma as evidenced by NPOx2 meals and PO 25% x 1 and wt loss of 18.9% in last three years (significant). NUTRITION INTERVENTION: 1.) Will continue to monitor per ST evaluation. 2.) Will add Gelatein 20 on all trays. MONITOR / EVAL: Diet tolerance/advancement per ST, PO intake, wt, POC, GI. Will continue to follow per high nutritional risk guidelines.
--- NOTE | 2016-10-26 16:04 | NUR ---
Evaluation completed. Please go to "Notes" then click on "Assessments and Notes" (bottom left corner of screen). Then select appropriate discipline tab on top of screen.
--- NOTE | 2016-10-26 16:13 | NUR ---
MBSS completed. Aspiration noted with thin, nectar and honey consistencies. Rec: Pudding/Pureed diet with COMPUTER HELP DESK REPRESENTATIVE to continue to follow. High aspiration risk. Discussed results and recommendations with RN and .
[2016-10-27] VITALS (8 sets, daily range): BP systolic 115–137; BP diastolic 66–86; PULSE 68–88; RESP 18–20; O2SAT 94–96
[2016-10-27] MEDS: Sodium Chloride LOK Flush 10 mL Syringe IVFLUSH SCH ×3 (00:57→18:18)
--- NOTE | 2016-10-27 05:35 | ST BAR ---
[address] [address] SPEECH BARIUM SWALLOW STUDY PATIENT: GABRIEL HOLLEY : 1930 MR#: [id number] ADMIT: 10/24/2016 JOB ID: [id number] DATE OF SERVICE: 10/26/2016 THERAPIST: Bel Liu MS, CCC-NET APPLICATIONS DEVELOPER REFERRING PHYSICIAN: Dr. Ivan GAITAN #: Not applicable. START OF CARE DATE: October 25, 2015 ONSET DATE: 2012 FURTHER THERAPY: Recommended while patient is inpatient at [facility] and when patient leaves through outpatient or home health services. SHORT-TERM GOALS: 1. The patient will safely tolerate pureed pudding textures without signs or symptoms of aspiration. 2. The patient will independently complete laryngeal and pharyngeal exercise program to increase strength and range of motion of the swallow mechanism. 3. The patient will demonstrate independence with compensatory strategies for swallowing. LONG-TERM GOALS: Patient will have safe p.o. intake for nutrition and hydration at the time of discharge. PLAN: Oral motor exercises, laryngeal strengthening exercises, instruction and compensatory strategies and ongoing education. CURRENT RELEVANT HISTORY: This is a very pleasant 85-year-old male who was seen for an outpatient modified barium swallow following an approximate 8 year history of dysphagia that has gotten progressively worse over the years. The patient was 1st seen for modified barium swallow at this hospital in May 2011 where he demonstrated silent aspiration with thin liquids. At that time the recommendation for a full liquid nectar thick diet was given. The patient was then seen for swallowing therapy in August 2011 at which time he was discharged. The patient reported difficulty with compliance of the diet texture, modification and compensatory strategies, as well as home program. At the time of discharge the patient was discharged on a dysphagia mechanical texture with recommendation for small sips of thin liquid. 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 The patient received radiation therapy to this area for 6 weeks and patient's reported he had increased coughing with meals approximately the time of radiation treatment. The patient was seen for a modified barium swallow on May 07, 2016 and noted to have aspiration with a teaspoon of liquid and nectar thick liquids. It was recommended that the patient discuss the need for an enteral tube placement, however patient wished to not do that at this time and patient was placed on honey thick pureed texture modification with possible alternate means of nutrition hydration discussed with and doctor. The patient was seen for outpatient speech and swallowing therapy with this clinician and patient continued to work on laryngeal strengthening exercises and completing a supraglottic swallow (hold your breath, swallow, cough, swallow again). The patient was able to increase overall swallowing function and increased safety with decreased aspiration noted. Modified barium swallow was recommended at that time, however, the patient became sick and is now inpatient at [facility] with difficulties relating to heart failure and kidney failure. During outpatient speech therapy patient was noted to be noncompliant with diet recommendations, however improved overall safety and no pneumonias greater than 6 months yielded continued appropriateness of thin liquid with compensatory strategies. PAST MEDICAL HISTORY: Significant for chronic heart failure, stage 4 chronic kidney disease, diet-controlled diabetes, diagnosis of pneumonia in 2012. A PET scan and March 26, 2016, with bilateral pleural effusion. The patient denies any recent diagnosis of pneumonia as he and his could recall. Patient reports frequent choking on food and liquids. The patient reports that he has thickened his liquids in the past and does not like it. However would be willing to do that while in the hospital to clear up any difficulty with his airway. Recent chest x-ray completed yesterday noted bilateral in lower lobe pneumonia differentiation between chronic congestive heart failure is not likely. MEDICAL NECESSITY: Aspiration risk. PRIOR LEVEL OF FUNCTION: An 8 year history of dysphagia including coughing on solids and liquids. PREVIOUS TREATMENT: Yes. The patient has received outpatient speech therapy in both 2010 and 2015 related to swallowing function. RELEVANT HOSPITALIZATIONS: Patient is currently inpatient at [facility] for heart failure, kidney failure, and bilateral pneumonia. FUNCTIONAL LIMITATIONS: Continuous wet vocal quality. Frequent coughing and choking on meals. BASELINE TESTS AND MEASURES: The patient stood and was viewed laterally for this evaluation today. Textures presented: Barium was presented in the following forms: Teaspoon of thin liquids, sips of thin liquids, sips of nectar thick liquids, teaspoon and sip of honey thick liquid, pureed textures. Oral phase: The oral phase was significant for good oral preparation formation in the anterior to posterior transit, although AP propulsion was mildly reduced. Pharyngeal phase: Premature spillage to the level of the vallecula with all p.o. trials. Laryngeal excursion noted to be moderately reduced with decreased laryngeal elevation. Epiglottic transition appears slow. Vallecular residue was observed with all p.o. trials. Significant residue was observed with both honey and pureed textures. Piriform sinus residue: Yes, piriform sinus residue was observed following all p.o. trials in the past. Laryngeal penetration was noted with teaspoon and cup sip of thin liquid, teaspoon of nectar thick liquids, teaspoon of honey thick liquid. Aspiration was noted with a teaspoon of thin liquid. Aspiration followed presentation of nectar thick liquid after the swallow from the residue in the vallecula. Penetration was observed with honey thick liquids, no aspiration noted, but the patient noted to have difficulty clearing residue within the pharynx. Vocal quality was noted to be wet and patient had a difficult time clearing esophageal phase. The barium tablet was not administered due to the severity of this patient's dysphasia. Cricopharyngeal relaxation appeared impaired as liquid and solids were noted to have difficulty clearing the PE segment and significant residue observed at the level of the PE segment. COMPENSATORY STRATEGIES: 1. Verbal cue for hard fast swallow was given throughout the study today to remind patient to utilize active full swallow. 2. Chin tuck was utilized with nectar and honey thick liquids and noted to increase the dilation of the vallecula, however did not appear affective in reducing overall aspiration. 3. The patient was given cue for cough, clear, re-swallow multiple times with penetration aspiration noted. The patient was noted to continue to cough and clear, cough and clear with minimal clearance of the residue. ASPIRATION RISK: High. TEXTURE RECOMMENDATION: Based on today's study this patient is only safe with pudding/ pureed diet with small bites through a teaspoon. The discussion of these recommendations and results were reviewed with the patient and his . It is encouraged this patient may need enteral tube placement for supplemental nutrition and hydration as pudding thick pureed diet may not be palatable to patient as he is currently asking for sips of water. Reviewed the use of a waiver if the patient wishes to go against recommendation. Patient and do not wish to do that at this time. EVALUATION RESULTS: This is a very pleasant male who is seen for an inpatient modified barium swallow study following an approximate 8 year history of progressive dysphagia since undergoing radiation therapy for the right side of the neck for a right squamous cell carcinoma on the lower right neck with lymph node involvement. The patient has been noted to have consistent wet phonation since admission to the hospital. The patient was placed in a stimulation diet by this clinician yesterday and was noted to be tolerating well. The patient and his do not wish to discuss enteral tube feeding at this time. The patient is safest on a p.o. diet of pudding thick pureed with a supraglottic swallow, hold your breath swallow, cough, re-swallow to limit aspiration into the lungs. It is recommended patient use small bites and sips and a swallow, cough, swallow, re-swallow with every bite. The patient should be in full upright position for all meals. It is recommended that this patient take his medication with applesauce. This patient should continue to work with inpatient speech therapy as well as outpatient or home health speech therapy with discharge from this hospital. cc: Dr. Ivan ROSE
[2016-10-27 06:27] LABS: BASOPHILS % (AUTO) 0.5 % (0-3); EOSINOPHILS % (AUTO) 0.7 % (0-5); Mean Corpuscular Hemoglobin 30.2 pg (27.0-35.0); Mean Corpuscular Volume 94.8 fL (81-100); NEUTROPHILS % (AUTO) 79.6 % (40-74); Platelet Count 137 bil/L (150-400)
[2016-10-27 06:43] LABS: Magnesium 2.2 mg/dL (1.6-2.6); Phosphorus 5.5 mg/dL (2.5-4.9)
[2016-10-27] MEDS: Isosorbide Mononitrate 30 mg ER24 Tablet PO SCH (08:31)
[2016-10-27] MEDS: cefTRIAXone Inj 1,000 MG in IV Premix 1 EACH IV SCH (08:32)
--- NOTE | 2016-10-27 11:30 | PCM.PNMED ---
Subjective Date of Service Oct 27, 2016 Subjective He is feeling better overall. no CP/SOB. mild LE swelling noted, right > left. Exam Vital Signs Vital Sign - Last Date Time Temp Pulse Resp B/P Pulse Ox O2 Delivery O2 Flow Rate FiO2 10/27/16 04:41 36.0 78 20 124/74 96 Room Air Intake and Output 10/26/16 10/26/16 10/27/16 Cumulative From/Thru 15:00 23:00 07:00 10/24/16 19:43 - 10/27/16 06:16 Intake Total 135 ml 268 ml 250 ml 1943 ml Output Total 310 ml 380 ml 2340 ml Balance 135 ml -42 ml -130 ml -397 ml Intake Oral 268 ml 250 ml 831 ml IV Total 135 ml 1112 ml Output Urine Total 310 ml 380 ml 2340 ml # Bowel Movements 2 Exam General: Cooperative, No Acute Distress Head: Normal, Skull Deformity, Tenderness Eyes: PERRLA, EOMI, Scleral Anicteric Nose: Dry membranes Mouth: Mucous Membranes Dry Neck: Supple, No Thyromegaly Chest & Lungs: Chest Wall Normal, Auscultation, Crackles (at bases) Cardiovascular: Regular Rate/Rhythm, Normal S1, Normal S2, Murmur (systolic) Abdomen: Non-tender, Non-distended, No hepatosplenomegaly Musculoskeletal: Unremarkable, Normal Range of Motion Extremities: No cyanosis/clubbing. 1+ edema bilat right > left. Lab and Diagnostics Result Diagram: 10/27/16 0540 10/27/16 0540 X-Rays, CTs and MRIs PROCEDURE: X-RAY CHEST ONE VIEW, PORTABLE ([id number]) INDICATIONS: weakness TECHNIQUE: One view of the chest was acquired. COMPARISON: [facility], CR, XR CHEST 2VW, 09/11/2016, 17:22. 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 Lungs and pleura: No pleural effusions or pneumothorax. There are by lateral retrocardiac basilar patchy density consistent with bilateral lower lobe pneumonias. Differential would be chronic congestive failure which I think is less likely to be occurring. Mediastinum: Mediastinal contours appear normal. Heart size is normal. Bones and chest wall: No suspicious bony lesions. Overlying soft tissues appear unremarkable. IMPRESSION: Changes more consistent with bilateral lower lobe pneumonias than of congestive failure. Assessment & Plan 1. Acute kidney injury on chronic kidney disease stage IV - improving slowly - BUN and creatinine ratio is elevated, will check FOBT. - resumed diuretic today, bumex 1 mg BID. 2. Generalized weakness - Rather multifactorial: Intravascular volume depletion, infection, uremia, failure to thrive due to chronic systolic heart failure 3. E.coli UTI - start bladder training today. 4. Chronic systolic heart failure EF 20-25%, mod-severe MR, severe TR 5. 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 6. Anemia in CKD, hb 10.3, ferritin 154, Tsat 13% s/p venofer infusion. Plan: - start bumex 1 mg BID. - No urgent dialysis indicated at this moment. - pending US vein mapping for AVG placement. - will order venous doppler of LE. VTE Mechanical Devices: Intermittant Pneumatic CD Resuscitation Status: CPR: Attempt Resuscitation (DPEMILY is his Yvrose) Fermin Whaley MD Oct 27, 2016 11:30
--- NOTE | 2016-10-27 12:16 | DRSVH ---
PROCEDURE: US VENOUS LEG DUPLEX BILATERAL INDICATIONS: Right leg edema/Possible DVT TECHNIQUE: Real-time imaging, as well as color and pulse Doppler interrogation, were performed of the deep veins of both legs from the inguinal ligament to the popliteal fossa. COMPARISON: None. FINDINGS: The deep veins are normally compressible, and free of intraluminal thrombus. Color and pu lse Doppler demonstrate normal phasic intravascular flow. There is normal augmentation response to d istal compression maneuver. IMPRESSION: No evidence of bilateral lower extremity DVT. Dictated by: Brianna Lao M.D. on 10/27/2016 at 12:14 Approved by: Brianna Lao M.D. on 10/27/2016 at 12:14
--- NOTE | 2016-10-27 16:05 | NUR ---
Social Work-continued d/c planning: Data:EMR reviewed. Pt is on day 3 of hospitalization for CHF per H&P. Pt is several days out from discharge. PT worked with pt and are recommending SNF, pt ambulating 30 ft. SW followed up with pt and to further discuss, SW role explained. is feeling like at this time she would prefer to have pt return home with her, declining SNF. SW provided her with SNF and HH list. Pt's agreeable to HH, no agency preference. SW referred to rotating calendar and made referral to [facility] for RN,OT,PT,ST, and [employer], access given. Chato at [facility] confirms that they contact with pt's insurance.F2F in folder. SW will continue to follow. Assessment:SNF vs home with HH. Plan:Pt to discharge home when medically stable via POV. Referral made to [facility] for RN,OT,PT,ST, and [employer], access given. Pt and currently declining SNF. F2F in folder. SW will continue to follow. FANTA Mejias
--- NOTE | 2016-10-27 16:35 | NUR ---
choice list provided. FANTA Mejias
--- NOTE | 2016-10-27 17:37 | PCM.CONPAL ---
Date of Service Oct 27, 2016 Date of Hospital Admission: Oct 24, 2016 at 23:01 Date of Palliative Consult: Oct 27, 2016 Requesting Provider: Kael Tucker MD Reason Palliative Care Consult: Advance Care Planning, Goals of Care Discussion , Hospice Referral & Discussion Hospital Unit @time of consult: Medical/Pediatric Care Palliative Care Recommendation Summary of palliative recommendations: -Symptom management (Pain/other) Profound weakness and debility-multi component with multisystem disease including progressive kidney disease ischemic cardiomyopathy with evidence of progressive CHF and decreasing EF Progressive decrease in mentation with probable mild dementia Weight loss reviewed additional supplements Situational stress with loss of his brother but he denies depression We will seek opinion of Dr. Robertson whether he would be able to survive dialysis. His is concerned based on poor quality of life progressive decline as well as stress of getting him in and out of appointments etc. She does not think that dialysis is likely to improve his quality of life Reviewed goals of care.. He would like to maximize time at home. Reviewed function of hospice and offered informational visit which he declined at this time POLST reviewed. He agrees DO NOT RESUSCITATE DO NOT INTUBATE no feeding tube. We will set a goal of completion of POLST prior to discharge.- CODE STATUS is adjusted in EMR -DPOA/Advanced Directives/POLST- -Family/emotional support-primarily his . They have other local family for support. -Spiritual support Additional Medical Diagnoses with primary management by Hospitalist team include : Problems: End of Life Preferences DNR/DNI no feeding tube Goals of Long Term to maximize time with Resuscitation Status Resuscitation Status: DNR/DNI:Do Not Resuscitate/Intubate (DPOA is his Yvrose) Limited Interventions: Medications and IV Fluid POLST Updates/Changes Previous POLST?: No Artificially Admin Nutrition: No Artifical Nutrition by Tube POLST Discussed with: Patient, Spouse/Other . Advanced Care Planning Address: Code status change Symptom management: Anxiety, Drowsiness/sleepiness, Dyspnea Pt History History of Present Illness This is a very pleasant 85-year-old male with a significant past medical history of chronic kidney disease stage IV, hypertension, CHF, type II diabetes and coronary artery disease, paroxysmal atrial flutter status post ablation and pacemaker placement, CVA, dyslipidemia presented to the hospital due to weakness. Patient was recently evaluated by gasateria attendant on September. At that time he had significant pitting edema. Diuretic was increased , furosemide 160 mg daily. According to his patient is having poor appetite and losing weight. He no longer has lower extremity swelling. Patient was seen by my partner, Dr. Parmar in August 2016. His serum creatinine at that time was 3. He was told that he would need dialysis soon. His initial serum BUN and creatinine were 106 and 3.7 respectively. [place] [address]. UA showed moderate blood, packed WBC. Echocardiogram in July to October 01 showed ejection fraction of 30-35%, moderate to severe MR and moderate right sided pleural effusion. PALLIATIVE CARE NOTE: Reason for consultation goals of care Request of patient's for palliative discussion 85-year-old gentleman followed by Dr. Robertson for cardiology and Dr. Haro [place] with known renal insufficiency stage IV kidney disease associated with chronic anemia, known ischemic heart disease peripheral vascular disease with bilateral carotid artery stenosis, AAA repair and atrial fibrillation history of congestive heart failure diabetes. 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 He states he has had a number of barium swallows and swallow evaluations and he knows he aspirates.. He comes in for progressive weakness and fatigue shortness of breath with the BNP 59K and creatinine of 3.7 BUN of 106. He has had progressive weight loss over the past year or more 2 years ago was 193 6 months ago was 173 is now 168 he is a poor appetite has difficulty swallowing. Pertinent is history is taken from patient but supplies most of the details and is primary caregiver for him. She identifies that she has been managing their affairs now for some time. He does not drive if she does she manages the paperwork/finances. Patient was previously 22 years head adopted 2 children in that marriage. His and he remarried Yvrose-and they have been now more than 30 years. He identifies her as D by mouth a HC and they have paperwork completed for both. 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 He discontinued smoking in 1994 drinks minimal alcohol He has a sister who is still alive with CVA at age 88 his brother 2 months ago of heart disease. PMH 1. Atrial fibrillation/flutter, paroxysmal s/p AV node ablation. 2. Congestive heart failure. 3. Coronary artery disease. 4. Hyperlipidemia. 5. Diabetes mellitus type 2, diet controlled. 6. Abdominal aortic aneurysm, status post repair. 7. Chronic kidney disease, stage 4 8. H/O Gout. 9. Hypothyroidism. 10. Hypertension. 11. Bilateral carotid stenosis. 12. History of C. difficile colitis, 2012. 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 14. Chronically elevated troponin. 15. History of squamous cell carcinoma of the skin. Status post Mohs surgery in October 2014 and radiation. Surgical History 1. Abdominal aortic aneurysm repair. 2. Back surgery. 3. Right total hip arthroplasty. 4. Tonsillectomy. 5. Skin cancer excision, right neck. 6. AV camilla ablation with pacemaker 02/28 Family History Noncontributory Social History Hx Alcohol Use: Yes (occassionally) Hx Substance Use: No Hx Tobacco Use: Yes Smoking Status: Former Smoker Additional Information Patient is a local resident. Lives with his in [place]. 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 Quit smoking tobacco in 1994 after around 19-fwsj-yija history. Rare alcohol ingestion. Past Medical History Significant PMH Noted: See above Social History Occupation: See above Living Situation: See above Spiritual Support Spiritual Support Believes in God but is not taoism oriented Responsive Patient Symptoms Pain (current): None Tiredness/Fatigue: Moderate Nausea: Mild Depression: None Anxiety: Moderate Drowsiness/Sleepiness: Moderate Anorexia: Moderate Shortness of Breath: Moderate (patient is quite adamant that he does not get short of breath but he describes orthopnea PND and significant AHMADI with minimal activity. He defines this only as needing to work harder to exhale) Constipation History of C. difficile with diarrhea apparently resolved Delirium His identifies increasing confusion and memory loss Medications Current Medications: Current Medications Aspirin 81 mg HS PO Last administered on 10/26/16 20:39; Admin Dose 81 MG; Start 10/25/16 at 21:00 Levothyroxine Sodium 75 mcg DAILY PO Last administered on 10/27/16 08:31; Admin Dose 75 MCG; Start 10/26/16 at 12:20 Bumetanide 1 mg BID PO; Start 10/27/16 at 11:30; Status Cancel Bumetanide 1 mg BID PO Last administered on 10/27/16 15:25; Admin Dose 1 MG; Start 10/27/16 at 13:46 Scheduled Aspirin (Aspirin) 81 Mg Tablet 81 MG PO HS Atorvastatin Calcium (Atorvastatin Calcium) 40 Mg Tablet 40 MG PO DAILY Carvedilol (Carvedilol) 25 Mg Tablet 25 MG PO BID Epoetin Janes (Epogen) 3,000 Unit/1 Ml Vial 3,000 UNIT IJ Tuesday Furosemide (Furosemide) 80 Mg Tab 80 MG PO DAILY Isosorbide MN ER (Isosorbide MN ER) 30 Mg Tab.er.24h 60 MG PO QAM Levothyroxine (Synthroid) 75 Mcg Tablet 75 MCG PO DAILY Sodium Bicarbonate (Sodium Bicarbonate) 325 Mg Tablet 650 MG PO BID Scheduled PRN Allopurinol (Allopurinol) 100 Mg Tablet 100 MG PO DAILY PRN PRN Gout Fluticasone Propionate (Fluticasone Propionate) 50 Mcg/Actuation Weidman.susp 2 SPRAY NS DAILY PRN PRN For Congestion Lorazepam (Ativan) 0.5 Mg Tablet 0.5 MG PO BID PRN PRN Tremor Nitroglycerin SL (Nitrostat) 0.4 Mg Tab.subl 0.4 MG PO Q5MIN PRN PRN For Chest Pain Objective Findings Exam Vital Sign - Last Date Time Temp Pulse Resp B/P Pulse Ox O2 Delivery O2 Flow Rate FiO2 10/27/16 15:05 36.5 76 18 123/71 96 Room Air Intake and Output 10/26/16 10/26/16 10/27/16 Cumulative From/Thru 15:00 23:00 07:00 10/24/16 19:43 - 10/27/16 06:16 Intake Total 135 ml 268 ml 250 ml 1943 ml Output Total 310 ml 380 ml 2340 ml Balance 135 ml -42 ml -130 ml -397 ml Intake Oral 268 ml 250 ml 831 ml IV Total 135 ml 1112 ml Output Urine Total 310 ml 380 ml 2340 ml # Bowel Movements 2 Objective Frequently dozing during conversation but can also be very involved in parts of the conversation General: Alert, Oriented, Person, Place HEENT: PERRLA, EOMI, Scleral Anicteric Lungs: Rhonchorus, Other (moist not very effective cough) Abdomen: Soft Neuro: Cranial Nerve 3-12 Intact Skin: Other (extensive solar damage skin of face and lips) Lab/Diagnostics Lab and Imaging results reviewed in detail in EMR. Echocardiogram notes ejection fraction now at 20-25% a progressive decline including a decline from July. He has moderate to severe MR and severe TR. There is suggestion of severe . In July was read as only moderate Patient/Family Conference Members Present Family Members Present Yvrose and patient Medical Team Members Present? Carl CORONADO Discussion/Goals of Care Discussion FAMILY UNDERSTANDING OF DISEASE: Progressive weight loss and debility Progressive worsening of ischemic cardiomyopathy with reduced ejection fraction and moderate to severe valvular heart disease Progressive worsening of renal function Progressive decline of mental acuity Patient on his own identifies that he believes his life expectancy is in the range of a matter of months but he would be optimistic in hoping for a couple of years. DISEASE PROGRESSION/EVIDENCE OF DECLINE: SYMPTOM BURDEN: GOALS: He wishes to have as much time at home as possible. He enjoys the company and support of his . He had been on golfer but has not in 2 years. His would hope that they can at least go for drives together recognizing a progressive decline in his ability to sustain activity and his fatigue HOPES/WORRIES: His is concerned that he does not recognize severity of disease-and he frankly states he is "not ready for hospice" Time spent Total time [60 ] minutes; >50% face to face with patient and/or family, providing counselling regarding plans and recommendations, and in care coordination with his/her medical teams. Including time coordinating with hospitalist team cardiology renal, review of records in hospital as well as clinic. I also spent an additional [ 25] minutes counseling for advanced care planning with the patient/the patients family/the surrogate decision maker. copies to: Fermin Whlaey MD; Mino Navarrete MD; Salvatore Robertson MD, Deborah A MD Oct 27, 2016 17:37
--- NOTE | 2016-10-27 20:46 | PCM.PNMED ---
Subjective Date of Service Oct 27, 2016 Subjective Patient remained very weak and otherwise has no new complaints. Exam Vital Signs Vital Sign - Last Date Time Temp Pulse Resp B/P Pulse Ox O2 Delivery O2 Flow Rate FiO2 10/27/16 18:51 36.7 76 20 137/81 94 Room Air Intake and Output 10/26/16 10/26/16 10/27/16 Cumulative From/Thru 15:00 23:00 07:00 10/24/16 19:43 - 10/27/16 06:16 Intake Total 135 ml 268 ml 250 ml 1943 ml Output Total 310 ml 380 ml 2340 ml Balance 135 ml -42 ml -130 ml -397 ml Intake Oral 268 ml 250 ml 831 ml IV Total 135 ml 1112 ml Output Urine Total 310 ml 380 ml 2340 ml # Bowel Movements 2 Exam General: Patient is lying supine in bed comfortable and in no apparent distress. However, he looks very weak and very tired. HEENT: Head is atraumatic normocephalic. Eyes: Pupils are equally round and reactive to light and accommodation. Extraocular muscles are intact. Sclera are white anicteric. Subconjunctival mucosa is pink. Ears and nose are unremarkable. Oropharynx: There is no mucosal lesions, there is no thrush, there is no pharyngitis. Neck: Is supple, there are no nodes, or masses, or tenderness. Chest: Is clear to auscultation and percussion. There are no rales, rhonchi, wheezes or rubs. Heart: Rate, rhythm is regular. There is a grade 2/6 systolic ejection murmur heard best at the left sternal border.there is no rub or gallop. Abdomen: Good bowel sounds are present. Abdomen is soft, nontender, no organomegaly or masses were appreciated. Extremities: Are symmetrical and well perfused. Pulses are diminished slightly but equal bilaterally. There is 2+ pitting edema of both lower extremities right greater than left There is evidence of cellulitis, there is no rash. Neurologic: There are no focal neurological deficits. Cranial nerves II through XII are intact. There are no sensory or motor deficits. However, patient is very weak. Psychiatric: Patients mood is calm and shows no sign of agitation. Genital: Deferred Rectal: Deferred Lab and Diagnostics Result Diagram: 10/27/16 0540 10/27/1640 Microbiology Name: GABRIEL HOLLEY Age/Sex: 85/M Attend Dr: Shirlene Arora MD Acct: [id number] Unit: [id number] Status: ADM IN Location: [facility] [place] [place] 3002-1 Re10/24/16 Disch: Specimen: [id number] Collected: 10/24/16 Status: COMP Req#: [id number] Received: 10/24/16 Source: URINE CC Sp Desc : PP Anup Dr: Jagjit Saleem MD Ordered: URINE CULT Procedure Result Verified Site Microbiology DIO CULT URINE Final 10/27/16-0746 Organism 1 ESCHERICHIA COLI U COLONY COUNT/QUANTITY >100,000 CFU/ml Cefazolin-predicts results for the oral agents, cefaclor,cefdinir, cefpodoximen, cefprozil, cefuroximne axetil, cephalexin and loracarbed when used for therapy of uncomplicated UTI's due to E. coli, K. pneumoniae, and Proteus mirabilis. Cefpodoxime, cefdinir and cefuroxime axetil may be tested individually because some isolates may be susceptible to these agents while testing resistant to cefazolin. (CLSI N002-D15 pg 53) 1. ESCHERICHIA COLI M.I.C Interp --------- ------ * AMOXICILLIN/CLAVULATE <=2 S * AMPICILLIN <=2 S * CEFAZOLIN (CEPHALOSPORIN) UTI 4 S * CEFEPIME <=1 S * CEFTRIAXONE <=1 S * CEFUROXIME SODIUM 4 S * CIPROFLOXACIN <=0.25 S * ERTAPENEM <=0.5 S * GENTAMICIN <=1 S * IMIPENEM <=1 S * LEVOFLOXACIN <=0.12 S * NITROFURANTOIN <=16 S * TETRACYCLINE <=1 S * TOBRAMYCIN <=1 S * TRIMETHOPRIM/SULFAMETHOXAZOLE <=20 S X-Rays, CTs and MRIs PROCEDURE: X-RAY CHEST ONE VIEW, PORTABLE ([id number]) INDICATIONS: weakness TECHNIQUE: One view of the chest was acquired. COMPARISON: [facility], CR, XR CHEST 2VW, 09/11/2016, 17:22. 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 Lungs and pleura: No pleural effusions or pneumothorax. There are by lateral retrocardiac basilar patchy density consistent with bilateral lower lobe pneumonias. Differential would be chronic congestive failure which I think is less likely to be occurring. Mediastinum: Mediastinal contours appear normal. Heart size is normal. Bones and chest wall: No suspicious bony lesions. Overlying soft tissues appear unremarkable. IMPRESSION: Changes more consistent with bilateral lower lobe pneumonias than of congestive failure. Cardiac Echo Impressions Echocardiogram Report Name: GABRIEL HOLLEY CStudy Date: 10/25/2016 Height: 69.5 in Hospital Exam Location: [facility] Weight: 165 lb Gender: Male BSA: 1.9 m2 : 1930 Age: 85 yrs BP: 108/64 mmHg Ordering Physician: HOSPITALIST SVHPerformed By: Fer Gastelum Referring Physician: ALFREDO BOLDEN Interpretation Summary The left ventricle is normal in size. The ejection fraction is estimated to be 20-25% (In 07/2015, it was about 30- 35%). Compared to the prior exam, the left ventricular function is reduced. The right ventricle is normal size. The right ventricular systolic function is normal.There is a pacemaker lead in the right ventricle. There is moderate to severe mitral regurgitation. Flow reversal noted in pulmonary veins consistent with significant mitral regurgitation. Compared to the prior echo study, there has been no change in the severity of mitral regurgitation. The aortic valve is not well visualized. The aortic valve is heavily calcified. The calculated aortic valve area is 0.84 cm2. The peak aortic velocity is 2.6 m/sec. The aortic valve mean gradient is 14.4 mmHg. The peak aortic velocity on the previous exam was 2.6 m/sec. There is moderate tricuspid regurgitation. Compared to the prior echo exam, there has been an increase in TR severity. The right ventricular systolic pressure is estimated at 57 mmHg assuming a right atrial pressure of 15 mm Hg. Compared to the prior echo exam, there has been an increase in the severity of pulmonary hypertension. Consider low dose Dobutamine echo to distinguish low flow severe versus true . 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 The patient has been noted to have consistent wet phonation since admission to the hospital. The patient was placed in a stimulation diet by this clinician yesterday and was noted to be tolerating well. The patient and his do not wish to discuss enteral tube feeding at this time. The patient is safest on a p.o. diet of pudding thick pureed with a supraglottic swallow, hold your breath swallow, cough, re-swallow to limit aspiration into the lungs. It is recommended patient use small bites and sips and a swallow, cough, swallow, re-swallow with every bite. The patient should be in full upright position for all meals. It is recommended that this patient take his medication with applesauce. This patient should continue to work with inpatient speech therapy as well as outpatient or home health speech therapy with discharge from this hospital. 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 acute, active # Generalized Weakness, present on admission, multifactorial with intravascular volume depletion from recently increased diuretics, advanced HF with hypercatabolic state, possible UTI. improving however, likely not to make huge progress due to chronic heart disease and chronic kidney disease.. -will start PT, advance diet as tolerate -diuresis, abx as below # Acute dyspnea secondary to fluid overload w/ ADHF in the setting of CKDIV, POA , repeat TTE showed decreased EF20-25% from 30-35% in , [id number] -s/p lasix 120mg iv on admission, stopped and tried n/s 80cc per nephrology recommendations as suspected intravascular vol depletion. -Appreciate further diuresis dosing per nephrology service. 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 - No urgent dialysis indicated at this moment. - pending US vein mapping for AVG placement. - will order venous doppler of LE." # UTI secondary to Escherichia coli, present on admission. -Continue ceftriaxone. chronic, stable # DM2, present on admission, diet Controlled, stable # Hyperthyroidism, Euthyroid state, continue Levothyroxine.75mcg # Chronic Dysphagia, POA, secondary to SCC of neck s/p radiation, continue dysphagia Mechanical Diet, appreciate speech eval recs. pt did tolerate diet today. # Paroxysmal Atrial Fibrillation, POA, Not on anticoagulation due to bleeding history # CAD hx of VT in 1984, and probable acute coronary syndrome in 2012, NSTEMI (no interventions), TTE showed worsening EF, stable mod-severe MR. 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 Goff today and is now a DNR/DNI. Initiate Dr. Goff's input and help us Get it case. Disposition: Suspect patient will be discharged within 1-2days, await PT recs, likely SNF appropriate at this time, is reasonable, compassionate and major caregiver. Diet as per speech therapy. Pain Evaluation: Adequate Pain Control GI Prophylaxis: Not indicated VTE Mechanical Devices: Intermittant Pneumatic CD Resuscitation Status: DNR/DNI:Do Not Resuscitate/Intubate (DPOA is his Yvrose) Limited Interventions: Medications and IV Fluid Kael Tucker MD Oct 27, 2016 20:46
[2016-10-27] MEDS: HYDROcodone-APAP 5-325 mg Tablet PO PRN (21:42)
[2016-10-28] VITALS (7 sets, daily range): BP systolic 128–137; BP diastolic 64–80; PULSE 64–78; RESP 18–20; O2SAT 94–96
[2016-10-28] MEDS: Sodium Chloride LOK Flush 10 mL Syringe IVFLUSH SCH ×3 (00:02→16:41)
--- NOTE | 2016-10-28 04:15 | NUR ---
Noted pursed lip breathing with O2 saturation in the mid 90's. 2L O2 via nasal cannula placed on the patient and repositioned for comfort.
[2016-10-28 07:10] LABS: BASOPHILS % (AUTO) 0.5 % (0-3); EOSINOPHILS % (AUTO) 1.7 % (0-5); Mean Corpuscular Hemoglobin 30.5 pg (27.0-35.0); Mean Corpuscular Volume 95.7 fL (81-100); NEUTROPHILS % (AUTO) 73.7 % (40-74); Platelet Count 145 bil/L (150-400)
[2016-10-28 07:25] LABS: Magnesium 2.2 mg/dL (1.6-2.6); Phosphorus 5.5 mg/dL (2.5-4.9)
[2016-10-28] MEDS: cefTRIAXone Inj 1,000 MG in IV Premix 1 EACH IV SCH (08:29)
[2016-10-28] MEDS: Isosorbide Mononitrate 30 mg ER24 Tablet PO SCH (08:29)
--- NOTE | 2016-10-28 10:26 | PCM.PALLBR ---
Palliative Care Recommendation Summary of palliative recommendations: -Symptom management (Pain/other) Profound weakness and debility-multi component with multisystem disease including progressive kidney disease ischemic cardiomyopathy with evidence of progressive CHF and decreasing EF Progressive decrease in mentation with probable mild dementia Weight loss reviewed additional supplements Situational stress with loss of his brother but he denies depression Reviewed today with patient and his and with Dr. Robertson and with Dr. Bales. Patient is willing to consider dialysis if necessary. He has had some improvement in his CR so may not be emergent but Dr. Bales will begin planning and prep for this. He is willing to go to dialysis 3 days a week. His is definitely supporting him in this. She is aware that dialysis can be discontinued at anytime and that he could be transferred to hospice care if that decision comes about. Fluid balance would be improved but his dysphagia and risk for recurrent pneumonia would not be helped with dialysis. Reviewed goals of care.. He would like to maximize time at home. Reviewed function of hospice and offered informational visit which he declined at this time POLST reviewed. He agrees DO NOT RESUSCITATE DO NOT INTUBATE no feeding tube. We will set a goal of completion of POLST prior to discharge.- CODE STATUS is adjusted in EMR -DPOA/Advanced Directives/POLST-reviewed. Still needs signature from patient before discharge. -Family/emotional support-primarily his . They have other local family for support. -Spiritual support-H Additional Medical Diagnoses with primary management by Hospitalist team include : Problems: End of Life Preferences DNR/DNI no feeding tube Goals of Shelter to maximize time with Disposition Home Resuscitation Status Resuscitation Status: DNR/DNI:Do Not Resuscitate/Intubate (DPOA is his Yvrose) Limited Interventions: Medications and IV Fluid POLST Updates/Changes Previous POLST?: No Artificially Admin Nutrition: No Artifical Nutrition by Tube POLST Discussed with: Patient, Spouse/Other . Symptom management: Dyspnea Total time [ 45] minutes; >50% face to face with patient and/or family, providing counselling regarding plans and recommendations, and in care coordination with his/her medical teams. coordination of care and decision on goals of care I also spent an additional [ ] minutes counseling for advanced care planning with the patient/the patients family/the surrogate decision maker. copies to: Fermin Whaley MD; Salvatore Robertson MD Palliative Brief Note Date of Service Oct 28, 2016 . 85 yo gentleman with severe ischemic cardiomyopathy with decreasing EF now at 20 -25% and progressive CRI now stage 5 with CR at 3.2 was 3.7 BUN over 100 Also dysphagia and probable chronic aspiration now with christal infiltrates c/w pneumonia and increased fatigue and SOB Pt slept well last tila with assist of hydrocodone. Still bit groggy Primary communication with his .He awakens only briefly stating he is tired. Discussion with Dr. Robertson and Dr. Bales. Both think would benefit from dialysis for sx such as fluid management. Dr. Robertson thinks he can tolerate vol shifts with dialysis. He thinks his prognosis is fair for 1-[address] Bales thinks high risk and thinks prognosis is poor for 1-2 yr survival. Discussion with his . She believes pt will want to give this a try and this is consistent with what he expressed yesterday. Again reviewed code status and agrees DNR/DNI. POLST not yet signed and dialysis OK listed for completeness. Janki Goff MD Oct 28, 2016 10:26
--- NOTE | 2016-10-28 11:32 | PCM.PNMED ---
Subjective Date of Service Oct 28, 2016 Subjective He is well rested. no acute issue. would like to proceed with HD. Exam Vital Signs Vital Sign - Last Date Time Temp Pulse Resp B/P Pulse Ox O2 Delivery O2 Flow Rate FiO2 10/28/16 09:38 36.3 72 18 135/77 94 Room Air 10/28/16 04:53 2.00 Intake and Output 10/27/16 10/27/16 10/28/16 Cumulative From/Thru 15:00 23:00 07:00 10/24/16 19:43 - 10/28/16 06:01 Intake Total 100 ml 1000 ml 400 ml 3443 ml Output Total 800 ml 600 ml 3740 ml Balance 100 ml 200 ml -200 ml -297 ml Intake Oral 1000 ml 400 ml 2231 ml IV Total 100 ml 1212 ml Output Urine Total 800 ml 600 ml 3740 ml # Bowel Movements 2 Exam General: Cooperative, No Acute Distress Head: Normal, Skull Deformity, Tenderness Eyes: PERRLA, EOMI, Scleral Anicteric Nose: Dry membranes Mouth: Mucous Membranes Dry Neck: Supple, No Thyromegaly Chest & Lungs: Chest Wall Normal, Auscultation, Crackles (at bases), wheezing. Cardiovascular: Regular Rate/Rhythm, Normal S1, Normal S2, Murmur (systolic) Abdomen: Non-tender, Non-distended, No hepatosplenomegaly Musculoskeletal: Unremarkable, Normal Range of Motion Extremities: No cyanosis/clubbing. 1+ edema bilat right > left. Lab and Diagnostics Result Diagram: 10/28/1625 10/28/16 0625 Microbiology Name: GABRIEL HOLLEY Age/Sex: 85/M Attend Dr: Shirlene Arora MD Acct: [id number] Unit: [id number] Status: ADM IN Location: [facility] [place] 3002-1 Re10/24/16 Disch: Specimen: [id number] Collected: 10/24/16 Status: DENNIS Req#: [id number] Received: 10/24/16 Source: URINE CC Sp Desc : PP Subm Dr: Jagjit Saleem MD Ordered: URINE CULT Procedure Result Verified Site Microbiology DIO CULT URINE Final 10/27/16 Organism 1 ESCHERICHIA COLI U COLONY COUNT/QUANTITY >100,000 CFU/ml Cefazolin-predicts results for the oral agents, cefaclor,cefdinir, cefpodoximen, cefprozil, cefuroximne axetil, cephalexin and loracarbed when used for therapy of uncomplicated UTI's due to E. coli, K. pneumoniae, and Proteus mirabilis. Cefpodoxime, cefdinir and cefuroxime axetil may be tested individually because some isolates may be susceptible to these agents while testing resistant to cefazolin. (CLSI Q927-R99 pg 53) 1. ESCHERICHIA COLI M.I.C Interp --------- ------ * AMOXICILLIN/CLAVULATE <=2 S * AMPICILLIN <=2 S * CEFAZOLIN (CEPHALOSPORIN) UTI 4 S * CEFEPIME <=1 S * CEFTRIAXONE <=1 S * CEFUROXIME SODIUM 4 S * CIPROFLOXACIN <=0.25 S * ERTAPENEM <=0.5 S * GENTAMICIN <=1 S * IMIPENEM <=1 S * LEVOFLOXACIN <=0.12 S * NITROFURANTOIN <=16 S * TETRACYCLINE <=1 S * TOBRAMYCIN <=1 S * TRIMETHOPRIM/SULFAMETHOXAZOLE <=20 S X-Rays, CTs and MRIs PROCEDURE: X-RAY CHEST ONE VIEW, PORTABLE ([id number]) INDICATIONS: weakness TECHNIQUE: One view of the chest was acquired. COMPARISON: [facility], CR, XR CHEST 2VW, 09/11/2016, 17:22. 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 Lungs and pleura: No pleural effusions or pneumothorax. There are by lateral retrocardiac basilar patchy density consistent with bilateral lower lobe pneumonias. Differential would be chronic congestive failure which I think is less likely to be occurring. Mediastinum: Mediastinal contours appear normal. Heart size is normal. Bones and chest wall: No suspicious bony lesions. Overlying soft tissues appear unremarkable. IMPRESSION: Changes more consistent with bilateral lower lobe pneumonias than of congestive failure. Cardiac Echo Impressions Echocardiogram Report Name: GABRIEL HOLLEY CStudy Date: 10/25/2016 Height: 69.5 in Hospital Exam Location: [facility] Weight: 165 lb Gender: Male BSA: 1.9 m2 : 1930 Age: 85 yrs BP: 108/64 mmHg Ordering Physician: HOSPITALIST SVHPerformed By: Fer Gastelum Referring Physician: ALFREDO BOLDEN Interpretation Summary The left ventricle is normal in size. The ejection fraction is estimated to be 20-25% (In 07/2015, it was about 30- 35%). Compared to the prior exam, the left ventricular function is reduced. The right ventricle is normal size. The right ventricular systolic function is normal.There is a pacemaker lead in the right ventricle. There is moderate to severe mitral regurgitation. Flow reversal noted in pulmonary veins consistent with significant mitral regurgitation. Compared to the prior echo study, there has been no change in the severity of mitral regurgitation. The aortic valve is not well visualized. The aortic valve is heavily calcified. The calculated aortic valve area is 0.84 cm2. The peak aortic velocity is 2.6 m/sec. The aortic valve mean gradient is 14.4 mmHg. The peak aortic velocity on the previous exam was 2.6 m/sec. There is moderate tricuspid regurgitation. Compared to the prior echo exam, there has been an increase in TR severity. The right ventricular systolic pressure is estimated at 57 mmHg assuming a right atrial pressure of 15 mm Hg. Compared to the prior echo exam, there has been an increase in the severity of pulmonary hypertension. Consider low dose Dobutamine echo to distinguish low flow severe versus true . 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 The patient has been noted to have consistent wet phonation since admission to the hospital. The patient was placed in a stimulation diet by this clinician yesterday and was noted to be tolerating well. The patient and his do not wish to discuss enteral tube feeding at this time. The patient is safest on a p.o. diet of pudding thick pureed with a supraglottic swallow, hold your breath swallow, cough, re-swallow to limit aspiration into the lungs. It is recommended patient use small bites and sips and a swallow, cough, swallow, re-swallow with every bite. The patient should be in full upright position for all meals. It is recommended that this patient take his medication with applesauce. This patient should continue to work with inpatient speech therapy as well as outpatient or home health speech therapy with discharge from this hospital. Assessment & Plan 1. Acute kidney injury on chronic kidney disease stage IV - improving slowly 2. E.coli UTI 3. Chronic systolic heart failure EF 20-25%, mod-severe MR, severe TR 4. 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 5. Anemia in CKD, hb 10.3, ferritin 154, Tsat 13% s/p venofer infusion. Plan: - continue bumex 1 mg BID. - d/c low cath, check PVR in am. - No urgent dialysis indicated at this moment. - pending US vein mapping for AVF/AVG placement. - likely to be d/c'd in 24 hr. GI Prophylaxis: Not indicated VTE Mechanical Devices: Intermittant Pneumatic CD Resuscitation Status: DNR/DNI:Do Not Resuscitate/Intubate (DPOA is his Yvrose) Limited Interventions: Medications and IV Fluid Fermin Whaley MD Oct 28, 2016 11:32
--- NOTE | 2016-10-28 15:24 | NUR ---
Social Work: Readiness for d/c Plan: Pt is on day 4 of hospitalization, EMR reviewed. states that pt is not ready for d/c today, per nephrology. EVENING OR NIGHT NURSE SUPERVISOR will continue to follow. Assessment: Pt who is independent at baseline. Plan: Pt will d/c home with [facility], RN/PT/OT/ST/LIQUOR COMMISSIONER, pt and spouse continue to decline SNF, which is recommended by PT. EVENING OR NIGHT NURSE SUPERVISOR will continue to follow. FANTA Boyer
--- NOTE | 2016-10-28 15:44 | NUR ---
Jefferson catheter removed Patient had been having bladder training. Patient was given order to remove Jefferson. Jefferson was removed fully intact. Patient was re-assessed 4 hours later and encouraged to urinate if he felt the need to void. Patient then within 5 minutes called for assistance to the restroom and was able to urinate.
--- NOTE | 2016-10-28 16:11 | NUR ---
Social Work: Continued d/c planning Data: PAPER MACHINE TENDER received message from [facility] who states that pt is no longer HH appropriate due to information provided in a Palliative note. PAPER MACHINE TENDER will follow up with [facility] on 10/29/16 to clarify. PAPER MACHINE TENDER will follow up on 10/29 with pt and spouse regarding d/c plan. PAPER MACHINE TENDER will continue to follow. Assessment: Pt who is independent at baseline. Plan: Plan in progress, [facility] states pt is no longer HH appropriate. PAPER MACHINE TENDER will follow up with [facility] on 10/29/16 to clarify. PAPER MACHINE TENDER will follow up on 10/29 with pt and spouse regarding d/c plan. PAPER MACHINE TENDER will continue to follow. FANTA Boyer
--- NOTE | 2016-10-28 16:14 | PCM.CHPCAR ---
Consult Subjective Date of service Oct 28, 2016 Date of admit Oct 24, 2016 at 23:01 Provider Requesting Consult Primary Care Physician Primary Care Provider: Mino Navarrete MD Chief Complaint # CHF # ARF (Stage IV CKD) # UTI # Atrial fibrillation # Moderate to severe aortic stenosis # Moderate severe MR # Moderate TR # Moderate pulmonary hypertension # S/P Medtronic dual-chamber permanent pacemaker implantation (02/2015) # S/p AVN ablation (02/2015) # CAD # S/P angioplasty (1979) # HTN # HLD # Chronic anemia (stable) # T2 DM # Squamous cell carcinoma # History of CVA History of Present Illness BP: 130/70mmHg, HR:75-90bpm (Irreg/Irreg) Weight: 77.4Kg (Bed Scale) Telem: 12 Lead ECG: Mr. Jah Robins is a pleasant 85-year-old male that is clinically followed in the [facility] Department by Dr. Salvatore Robertson. 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 In addition, the patient has a history of stage IV CKD, squamous cell carcinoma of the neck (S/P radiation), chronic anemia, T2 DM. The patient was brought to the [facility] emergency department via EMS on 10/24/2016 the patient was admitted to [facility] with a two- week history of worsening generalized weakness, increasing lethargy and dyspnea. The patient reports that his breathing was becoming more labored prior to admission. The patient reports that he had seen Dr. Robertson on 2015, during that visit the patient was told to increase his Lasix to 160mg daily due to the increase edema of his legs. The patient reports that he increased his Lasix as directed for a few days, but, he developed dizziness. The patient contacted [facility] regarding his symptoms and he was subsequently instructed to return to decrease his Lasix back to 80 mg/day. The patient relates that he did experience a ground level fall 3 days ago. The patient reports that his recent fall was not very traumatic and patient did not lose consciousness or hit his head. The patient reports that he slipped out of his chair and subsequently fell onto the ground. In regards to the patient's stage IV CKD, he has previously been seen by nephrology and told that he would likely need dialysis soon. Today, the patient denies any type of anginal symptoms, he continues to feel dyspneic at rest, he continues to have bilateral lower extremity swelling. He denies palpitations, he denies PND/orthopnea symptoms. He denies dizziness, lightheadedness, presyncope or sanjeev syncopal episodes. Home Medications: 1. Aspirin 81 mg by mouth daily 2. Coreg 25 mg one by mouth twice a day 3. Imdur 30 mg 2 tabs by mouth every day 4. Furosemide 80 mg 2 tabs by mouth daily 5. Atorvastatin 40 mg by mouth daily Current labs: 10/28/2016 1. CBC: H/H: 9.5/30 (stable) 2. CMP: BUN/creatinine: 94 / 3.13, Na+138, K+ 3.8 2-D echocardiogram: 10/25/2016 The left ventricle is normal in size. The ejection fraction estimated to be 2025%. (In 07/2015, it was about 30-35%). Compared to the prior echo exam, the left ventricular function is reduced. Right ventricle is normal size. The right ventricular systolic function is normal. There is a pacemaker lead in the right ventricle. There is moderate severe mitral regurgitation. Flow reversal noted in pulmonary veins consistent with significant mitral regurgitation. Compared to the prior echo study, there has been no change in severity of the mitral regurgitation. Aortic valve was not well visualized. The aortic valve is heavily calcified. The calculated aortic valve area is 0.84 cm. The peak aortic velocity is 2.6 m /s. The aortic valve mean gradient is 14.4 mmHg. The peak aortic velocity on the previous exam was 2.6 m/s. Consider low dose dobutamine echo to distinguish low-flow severe left ear versus true aortic stenosis. There is moderate tricuspid regurgitation. Compared to the prior echo exam there is been an increase in the TR severity. The right ventricular systolic pressure is estimated at 57 mmHg assuming a right atrial pressure 15 mmHg. Compared to the prior echo exam there is been an increase in severity of pulmonary hypertension. CXR: Changes more consistent with bilateral lower lobe pneumonias than of congestive failure Review of Systems Review of Systems 12 point ROS negative except as stated in HPI PMH Past Medical History # CHF # Stage IV CKD) # Atrial fibrillation # Moderate to severe aortic stenosis # Moderate severe MR # Moderate TR # Moderate pulmonary hypertension # CAD # S/P angioplasty (1979) # HTN # HLD # Chronic anemia (stable) # T2 DM # Squamous cell carcinoma (s/p radiation) # History of CVA Past Surgical History # S/P Medtronic dual-chamber permanent pacemaker implantation (02/2015) # S/p AVN ablation (02/2015) # Abdominal aortic aneurysm repair. # Back surgery. # Right total hip arthroplasty. # Tonsillectomy. Bedside Blood Glucose: 116 Scheduled Aspirin (Aspirin) 81 Mg Tablet 81 MG PO HS (Reported) Atorvastatin Calcium (Atorvastatin Calcium) 40 Mg Tablet 40 MG PO DAILY ( Reported) Carvedilol (Carvedilol) 25 Mg Tablet 25 MG PO BID (Reported) Epoetin Janes (Epogen) 3,000 Unit/1 Ml Vial 3,000 UNIT IJ Tuesday (Reported) Furosemide (Furosemide) 80 Mg Tab 80 MG PO DAILY (Reported) Isosorbide MN ER (Isosorbide MN ER) 30 Mg Tab.er.24h 60 MG PO QAM (Reported) Levothyroxine (Synthroid) 75 Mcg Tablet 75 MCG PO DAILY (Reported) Sodium Bicarbonate (Sodium Bicarbonate) 325 Mg Tablet 650 MG PO BID (Reported) Scheduled PRN Allopurinol (Allopurinol) 100 Mg Tablet 100 MG PO DAILY PRN PRN Gout (Reported) Fluticasone Propionate (Fluticasone Propionate) 50 Mcg/Actuation [place].susp 2 SPRAY NS DAILY PRN PRN For Congestion (Reported) Lorazepam (Ativan) 0.5 Mg Tablet 0.5 MG PO BID PRN PRN Tremor Nitroglycerin SL (Nitrostat) 0.4 Mg Tab.subl 0.4 MG PO Q5MIN PRN PRN For Chest Pain (Reported) Discontinued Medications Azithromycin (Azasite) 2.5 Ml Drops 2.5 ML OD BID 2 days daily 5 d 1 drop in Right eye twice a day for 2 days then 1 drop once a day for 5 additional days. Carvedilol (Carvedilol) 12.5 Mg Tablet 18.75 MG PO BIDWM (Reported) Furosemide (Lasix) 20 Mg Tablet 160 MG PO DAILY (Reported) Prednisone (PredniSONE) 50 Mg Tablet 50 MG PO DAILY (Reported) Current Inpatient Medications Current Medications Bumetanide 1 mg BID PO; Start 10/27/16 at 11:30; Status Cancel Bumetanide 1 mg BID PO Last administered on 10/28/16 08:28; Admin Dose 1 MG; Start 10/27/16 at 13:46 Acetaminophen/ Hydrocodone Bitart 1 tablet Q4H PRN PO Last administered on 10/27 21:42; Admin Dose 1 TABLET; Start 10/27/16 at 21:35 Allergies: Coded Allergies: dabigatran etexilate (Verified Allergy, Severe, SEVERE BLEEDING, 10/25/16) heparin (Verified Allergy, Severe, Arrhymia and A. Fib, 10/25/16) cephalexin (Verified Allergy, Intermediate, Diarrhea, 10/25/16) losartan (Verified Allergy, Intermediate, Yee and diarrhea, 10/25/16) moxifloxacin HCl (Verified Allergy, Intermediate, Rash, 10/25/16) colchicine (Verified Allergy, Unknown, Diarrhea, 10/25/16) cefuroxime (Verified Adverse Reaction, Intermediate, Diarrhea, 10/25/16) Social History Hx Alcohol Use: Yes (occassionally)Hx Substance Use: NoHx Tobacco Use: Yes Smoking Status: Former Smoker Exam Vital Signs Vital Sign - Last Date Time Temp Pulse Resp B/P Pulse Ox O2 Delivery O2 Flow Rate FiO2 10/28/16 09:38 36.3 72 18 135/77 94 Room Air 10/28/16 04:53 2.00 Intake and Output 10/27/16 10/27/16 10/28/16 Cumulative From/Thru 14:59 22:59 06:59 10/24/16 19:43 - 10/28/16 06:01 Intake Total 100 ml 1000 ml 400 ml 3443 ml Output Total 800 ml 600 ml 3740 ml Balance 100 ml 200 ml -200 ml -297 ml Intake Oral 1000 ml 400 ml 2231 ml IV Total 100 ml 1212 ml Output Urine Total 800 ml 600 ml 3740 ml # Bowel Movements 2 Objective General: Cooperative, AAO in No Acute Distress Head: NC/AT Eyes: Scleral Anicteric Mouth: Mucous Membranes Dry, tongue midline and mobile Neck: Supple, No Thyromegaly, Chest & Lungs: Crackles bilat bases, scattered wheezing. Cardiovascular: Irreg/Irreg, Normal S1, Normal S2, There is a grade 3/6 MARYAN heard best at the LVA, no G . Abdomen: Non-tender, Non-distended, No hepatosplenomegaly Extremities: No cyanosis/clubbing. bilat 2+ pre-tibal edema. Lab and Diagnostics Result Diagram: 10/28/1662410/28/16624 Assessment & Plan Assessment # CHF # ARF (Stage IV CKD) # UTI # Atrial fibrillation # Moderate to severe aortic stenosis # Moderate severe MR # Moderate TR # Moderate pulmonary hypertension # S/P Medtronic dual-chamber permanent pacemaker implantation (02/2015) # S/p AVN ablation (02/2015) # CAD # S/P angioplasty (1979) # HTN # HLD # Chronic anemia (stable) # T2 DM # Squamous cell carcinoma # History of CVA Pain Evaluation: Adequate Pain Control VTE Mechanical Devices: Intermittant Pneumatic CD Resuscitation Status: DNR/DNI:Do Not Resuscitate/Intubate (DPOA is his Yvrose) Limited Interventions: Medications and IV Fluid Tolu Miller PA-C Oct 28, 2016 16:14
--- NOTE | 2016-10-28 18:29 | PCM.PNMED ---
Subjective Date of Service Oct 28, 2016 Subjective Patient is feeling a little bit better today and was able to get up out of bed and walk around the room a little bit. He is feeling a little bit stronger. He has no other new complaints. Exam Vital Signs Vital Sign - Last Date Time Temp Pulse Resp B/P Pulse Ox O2 Delivery O2 Flow Rate FiO2 10/28/16 17:38 36.4 74 18 137/65 96 Room Air 10/28/16 04:53 2.00 Intake and Output 10/27/16 10/27/16 10/28/16 Cumulative From/Thru 15:00 23:00 07:00 10/24/16 19:43 - 10/28/16 06:01 Intake Total 100 ml 1000 ml 400 ml 3443 ml Output Total 800 ml 600 ml 3740 ml Balance 100 ml 200 ml -200 ml -297 ml Intake Oral 1000 ml 400 ml 2231 ml IV Total 100 ml 1212 ml Output Urine Total 800 ml 600 ml 3740 ml # Bowel Movements 2 Exam General: Patient is lying supine in bed comfortable and in no apparent distress. However, he continues to appear very weak and very tired. HEENT: Head is atraumatic normocephalic. Eyes: Pupils are equally round and reactive to light and accommodation. Extraocular muscles are intact. Sclera are white anicteric. Subconjunctival mucosa is pink. Ears and nose are unremarkable. Oropharynx: There is no mucosal lesions, there is no thrush, there is no pharyngitis. Neck: Is supple, there are no nodes, or masses, or tenderness. Chest: Is clear to auscultation and percussion. There are no rales, rhonchi, wheezes or rubs. Heart: Rate, rhythm is regular. There is a grade 2/6 systolic ejection murmur heard best at the left sternal border. There is no rub or gallop. Abdomen: Good bowel sounds are present. Abdomen is soft, nontender, no organomegaly or masses were appreciated. Extremities: Are symmetrical and well perfused. Pulses are diminished slightly but equal bilaterally. There is pitting edema of both lower extremities right greater than left. However, this has improved significantly today. There is evidence of cellulitis, there is no rash. Neurologic: There are no focal neurological deficits. Cranial nerves II through XII are intact. There are no sensory or motor deficits. However, patient is very weak. Psychiatric: Patients mood is calm and shows no sign of agitation. Genital: Deferred Rectal: Deferred Lab and Diagnostics Result Diagram: 10/28/1662410/28/16624 Microbiology Name: LEYDIGABRIEL Mae Age/Sex: 85/M Attend Dr: Shirlene Arora MD Acct: [id number] Unit: [id number] Status: ADM IN [place] [facility] Re10/24/16 Disch: Specimen: [id number] Collected: 10/24/16 Status: COMP Req#: [id number] Received: 10/24/16 Source: URINE CC Sp Desc : MARQUIS Hebert Dr: Jagjit Saleem MD Ordered: URINE CULT Procedure Result Verified Site Microbiology DIO CULT URINE Final 10/27/16-0746 Organism 1 ESCHERICHIA COLI U COLONY COUNT/QUANTITY >100,000 CFU/ml Cefazolin-predicts results for the oral agents, cefaclor,cefdinir, cefpodoximen, cefprozil, cefuroximne axetil, cephalexin and loracarbed when used for therapy of uncomplicated UTI's due to E. coli, K. pneumoniae, and Proteus mirabilis. Cefpodoxime, cefdinir and cefuroxime axetil may be tested individually because some isolates may be susceptible to these agents while testing resistant to cefazolin. (CLSI M071-H74 pg 53) 1. ESCHERICHIA COLI M.I.C Interp --------- ------ * AMOXICILLIN/CLAVULATE <=2 S * AMPICILLIN <=2 S * CEFAZOLIN (CEPHALOSPORIN) UTI 4 S * CEFEPIME <=1 S * CEFTRIAXONE <=1 S * CEFUROXIME SODIUM 4 S * CIPROFLOXACIN <=0.25 S * ERTAPENEM <=0.5 S * GENTAMICIN <=1 S * IMIPENEM <=1 S * LEVOFLOXACIN <=0.12 S * NITROFURANTOIN <=16 S * TETRACYCLINE <=1 S * TOBRAMYCIN <=1 S * TRIMETHOPRIM/SULFAMETHOXAZOLE <=20 S X-Rays, CTs and MRIs PROCEDURE: X-RAY CHEST ONE VIEW, PORTABLE ([id number]) INDICATIONS: weakness TECHNIQUE: One view of the chest was acquired. COMPARISON: [facility], CR, XR CHEST 2VW, 09/11/2016, 17:22. 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 Lungs and pleura: No pleural effusions or pneumothorax. There are by lateral retrocardiac basilar patchy density consistent with bilateral lower lobe pneumonias. Differential would be chronic congestive failure which I think is less likely to be occurring. Mediastinum: Mediastinal contours appear normal. Heart size is normal. Bones and chest wall: No suspicious bony lesions. Overlying soft tissues appear unremarkable. IMPRESSION: Changes more consistent with bilateral lower lobe pneumonias than of congestive failure. Cardiac Echo Impressions Echocardiogram Report Name: GABRIEL HOLLEY CStudy Date: 10/25/2016 Height: 69.5 in Hospital Exam Location: [facility] Weight: 165 lb Gender: Male BSA: 1.9 m2 : 1930 Age: 85 yrs BP: 108/64 mmHg Ordering Physician: HOSPITALIST SVHPerformed By: Fer Gastelum Referring Physician: ALFREDO BOLDEN Interpretation Summary The left ventricle is normal in size. The ejection fraction is estimated to be 20-25% (In 07/2015, it was about 30- 35%). Compared to the prior exam, the left ventricular function is reduced. The right ventricle is normal size. The right ventricular systolic function is normal.There is a pacemaker lead in the right ventricle. There is moderate to severe mitral regurgitation. Flow reversal noted in pulmonary veins consistent with significant mitral regurgitation. Compared to the prior echo study, there has been no change in the severity of mitral regurgitation. The aortic valve is not well visualized. The aortic valve is heavily calcified. The calculated aortic valve area is 0.84 cm2. The peak aortic velocity is 2.6 m/sec. The aortic valve mean gradient is 14.4 mmHg. The peak aortic velocity on the previous exam was 2.6 m/sec. There is moderate tricuspid regurgitation. Compared to the prior echo exam, there has been an increase in TR severity. The right ventricular systolic pressure is estimated at 57 mmHg assuming a right atrial pressure of 15 mm Hg. Compared to the prior echo exam, there has been an increase in the severity of pulmonary hypertension. Consider low dose Dobutamine echo to distinguish low flow severe versus true . 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 The patient has been noted to have consistent wet phonation since admission to the hospital. The patient was placed in a stimulation diet by this clinician yesterday and was noted to be tolerating well. The patient and his do not wish to discuss enteral tube feeding at this time. The patient is safest on a p.o. diet of pudding thick pureed with a supraglottic swallow, hold your breath swallow, cough, re-swallow to limit aspiration into the lungs. It is recommended patient use small bites and sips and a swallow, cough, swallow, re-swallow with every bite. The patient should be in full upright position for all meals. It is recommended that this patient take his medication with applesauce. This patient should continue to work with inpatient speech therapy as well as outpatient or home health speech therapy with discharge from this hospital. 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 acute, active # Generalized Weakness, present on admission, multifactorial with intravascular volume depletion from recently increased diuretics, advanced HF with hypercatabolic state, possible UTI. improving slowly. However, likely not to make huge progress due to chronic heart disease and chronic kidney disease.. -We will continue PT -Heart healthy and renal diet -Continue diuresis with Bumex 1 mg by mouth twice a day -Continue antibiotics as mentioned below # Acute dyspnea secondary to fluid overload w/ ADHF in the setting of CKDIV, POA , repeat TTE showed decreased EF20-25% from 30-35% in , [id number] -s/p lasix 120mg iv on admission, stopped and tried n/s 80cc per nephrology recommendations as suspected intravascular vol depletion. -Appreciate further diuresis dosing per nephrology service. Currently patient is on Bumex 1 mg by mouth twice a day we will continue. -Continue Coreg 18.75 mg by mouth twice a day -Continue strict I's and O's, and daily weights -Nephrology has recommended removal of the Low catheter. 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 - d/c low cath, check PVR in am. - No urgent dialysis indicated at this moment. - Pending US vein mapping for AVF/AVG placement." # UTI secondary to Escherichia coli, present on admission. -Continue ceftriaxone. chronic, stable # DM2, present on admission, diet Controlled, stable # Hyperthyroidism, Euthyroid state, continue Levothyroxine.75mcg # Chronic Dysphagia, POA, secondary to SCC of neck s/p radiation, continue dysphagia Mechanical Diet, appreciate speech eval recs. pt did tolerate diet today. # Paroxysmal Atrial Fibrillation, POA, Not on anticoagulation due to bleeding history # CAD hx of [place] in 1984, and probable acute coronary syndrome in 2012, NSTEMI (no interventions), TTE showed worsening EF, stable mod-severe MR. 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 Goff today and is now a DNR/DNI. Initiate Dr. Goff's input and help us Get it case. Disposition: Suspect patient will be discharged within 1-2days, await PT recs, likely SNF appropriate at this time, however the patient does not want to go to a [facility] facility. The is reasonable, compassionate and major caregiver. Patient will likely need home health in addition to the 's good care. Diet as per speech therapy. Pain Evaluation: Adequate Pain Control GI Prophylaxis: Not indicated VTE Mechanical Devices: Intermittant Pneumatic CD Resuscitation Status: DNR/DNI:Do Not Resuscitate/Intubate (DPOA is his Yvrose) Limited Interventions: Medications and IV Fluid Kael Tucker MD Oct 28, 2016 18:29
[2016-10-28] MEDS: HYDROcodone-APAP 5-325 mg Tablet PO PRN (20:41)
[2016-10-29] VITALS (8 sets, daily range): BP systolic 119–145; BP diastolic 65–85; PULSE 70–77; RESP 18–20; O2SAT 92–98
--- NOTE | 2016-10-29 00:18 | NUR ---
No IV access Patient's IV site was leaky and slightly swollen at beginning of this shift, left AC area. 5 total unsuccessful attempts at placing new IV by two RN's. paged, order received for having no IV access overnight. Patient is on telemetry.
[2016-10-29] MEDS: Sodium Chloride LOK Flush 10 mL Syringe IVFLUSH SCH ×3 (00:20→16:40)
[2016-10-29] MEDS: HYDROcodone-APAP 5-325 mg Tablet PO PRN ×2 (01:12→09:56)
--- NOTE | 2016-10-29 07:56 | NUR ---
Bladder scan Patient went to bathroom and voided. Patient bladder scanned and PVR was 105.
[2016-10-29] MEDS: Isosorbide Mononitrate 30 mg ER24 Tablet PO SCH (08:24)
--- NOTE | 2016-10-29 08:35 | DRSVH ---
PROCEDURE: US DUPLEX DOPPLER OF BILATERAL ARM ARTERIES ([id number]) INDICATIONS: AVG PLACEMENT TECHNIQUE: Color and pulse Doppler interrogation was performed of both upper extremity arterial systems at the e lbow and forearm, with image documentation. COMPARISON: None. FINDINGS: Right upper extremity: Subclavian artery: 48 cm/sec, with biphasic flow. Axillary artery: 47 cm/sec, with biphasic flow. Brachial artery at antecubital fossa: 53 cm/sec, with biphasic flow. Proximal radial artery: 34 cm/sec, with biphasic flow. Mid radial artery: 26 cm/sec, with biphasic flow. Distal radial artery: 21 cm/sec, with biphasic flow. Proximal ulnar artery: 30 cm/sec, with biphasic flow. Mid ulnar artery: 27 cm/sec, with biphasic flow. Distal ulnar artery: 15 cm/sec, with biphasic flow. Left upper extremity: Subclavian artery: 48 cm/sec, with biphasic flow. Axillary artery: 34 cm/sec, with biphasic flow. Brachial artery at antecubital fossa: 57 cm/sec, with biphasic flow. Proximal radial artery: 23 cm/sec, with biphasic flow. Mid radial artery: 25 cm/sec, with biphasic flow. Distal radial artery: 34 cm/sec, with biphasic flow. Proximal ulnar artery: 30 cm/sec, with biphasic flow. Mid ulnar artery: 21 cm/sec, with biphasic flow. Distal ulnar artery: 19 cm/sec, with biphasic flow. Measurements of the brachial, radial, and ulnar arteries obtained and listed on the attached diagram. Duplicated mid ulnar arteries demonstrated bilaterally with the anterior vessels extending to the w rist and utilized for measurements. The deeper vessels extended into the deep soft tissues and were nonvisualized at the wrist. IMPRESSION: 1. Patent flow demonstrated within the bilateral upper extremity arteries as described with biphasic waveforms. 2. Please reference attached diagram for vessel diameter measurements. Dictated by: Virgil Hinojosa M.D. on 10/29/2016 at 8:34 Approved by: Virgil Hinojosa M.D. on 10/29/2016 at 8:34
--- NOTE | 2016-10-29 08:40 | DRSVH ---
PROCEDURE: US VENOUS ARM DUPLEX, BILATERAL INDICATIONS: AVG PLACEMENT TECHNIQUE: Real-time imaging, as well as color and pulse Doppler interrogation, was performed of both upper extr emity deep veins from the inferior neck to the antecubital fossa. Measurements were obtained of the cephalic and basilic veins bilaterally. COMPARISON: None. FINDINGS: No evidence of deep venous thrombosis in the right or left upper extremity. The cephalic and basilic veins were measured bilaterally in the upper extremities. Please reference attached diagram for measurements. IMPRESSION: 1. No evidence of deep venous thrombosis. 2. Measurements of bilateral basilic and cephalic veins obtained in the upper extremities. Please r eference attached diagram for vessel diameters. Dictated by: Virgil Hinojosa M.D. on 10/29/2016 at 8:39 Approved by: Virgil Hinojosa M.D. on 10/29/2016 at 8:39
[2016-10-29] MEDS ORDERED: Cefdinir 25 mg/mL 60 mL Suspension PO SCH (08:55)
--- NOTE | 2016-10-29 08:57 | NUR ---
Social Work: Continued d/c planning Data: Pt is on day 5 of hospitalization. EMR reviewed. WIRE DRAWER spoke with Chato with [facility] regarding pt. He states that their director looked over pt's chart and that their interpretation of it concludes that pt is no HH appropriate due to no goals to be met. WIRE DRAWER asked follow up questions and he states that the most recent palliative note states the goal of care is to maximize his time at home with his . WIRE DRAWER called [facility] and explained the situation, they are willing to review the chart and see if they would be able to work with this pt. WIRE DRAWER gave access and awaiting call back regarding this. WIRE DRAWER updated palliative WIRE DRAWER. WIRE DRAWER will continue to follow. Assessment: Pt who is independent at baseline. Plan: Pt will likely d/c home via POV with spouse, [facility] reviewing. WIRE DRAWER will continue to follow. FANTA Boyer
[2016-10-29 09:02] LABS: BASOPHILS % (AUTO) 1.1 % (0-3); EOSINOPHILS % (AUTO) 2.1 % (0-5); MONOCYTES % (AUTO) 9.4 % (4-12); Mean Corpuscular Hemoglobin 30.4 pg (27.0-35.0); Mean Corpuscular Volume 96.1 fL (81-100); NEUTROPHILS % (AUTO) 76.7 % (40-74); Platelet Count 146 bil/L (150-400)
[2016-10-29 09:33] LABS: Magnesium 2.2 mg/dL (1.6-2.6)
[2016-10-29] MEDS ORDERED: Furosemide 10 mg/mL 10 mL Inj IVPUSH ONE (10:40)
--- NOTE | 2016-10-29 10:54 | NUR ---
NUTRITION FOLLOW-UP: ASSESS: 85yo male admitted to the hospital w/ general weakness and fatigue. Pt and state weakness started a couple weeks ago, but progressively worsened in the last few days. Pt and also report he has experienced some wt loss as well (18% wt loss x3 years). Pt has chronic dysphagia and is currently on a pureed diet with pudding thick liquids per ST. He is receiving Pudding thick Glucerna on all trays. Pts PO intake has improved over the last couple days to 50-100% of meals. Wt has been stable. Nephrology is following for acute kidney injury on chronic kidney disease stage IV. Palliative is involved for goals of care. PMHX: Afib, CHF, CAD, HLD, DM II, stage IV CKD, Gout, HTN, Hypothyroidism, Bilateral Carotid Stenosis, Heparin-induced Thrombocytopenia, Squamous Cell Carcinoma, Abdominal Aortic Aneurysm LABS: Reviewed. Bun 102, Building Tech 3.08, Glu 145, phos 5.5, alb 3.5 MEDS: Sodium Bicarbonate, Synthroid GI: BMx1 10/29 SKIN: [place] 17 CURRENT WTS: 74.8kg BMI: 24.0 kg/m2 ADMIT WT: 74.8 kg UBW: Average 90kg (2012) 18.9% wt loss in last three years (significant) DIET: Pureed, pudding thick liquids. PO 50-100% EST. NEEDS: CKD stg IV, significant wt loss Kcals: 0559-9497 kcal/day (25-35 kcal/kg) Pro: 60-75 kg/day (0.8-1.0g/kg) NUTRITION DIAGNOSIS: 1.) Chewing/swallowing difficulties related to muscular weakness as evidenced by altered texture diet per ST evaluation.--PERSISTS 2.) Inadequate oral intake related to muscle weakness and squamous cell carcinoma as evidenced by NPOx2 meals and PO 25% x 1 and wt loss of 18.9% in last three years (significant).--IMPROVING NUTRITION INTERVENTION: 1.) Continue diet per ST 2.) Continue pudding thick Glucerna on all trays MONITOR / EVAL: Diet tolerance/advancement per ST, PO intake, wt, POC, GI. Will continue to follow per high nutritional risk guidelines.
--- NOTE | 2016-10-29 11:35 | PCM.PNMED ---
Subjective Date of Service Oct 29, 2016 Subjective He has somewhat difficulty breathing today. low cath removed, PVR showed 105 ml urine volume, a repeat PVR showed 0 ml urine volume. Discussed with his and the patient, they would like to proceed with hemodialysis. He stated that he wants to live and not ready for hospice. Exam Vital Signs Vital Sign - Last Date Time Temp Pulse Resp B/P Pulse Ox O2 Delivery O2 Flow Rate FiO2 10/29/16 09:44 36.5 77 20 137/66 96 Room Air 10/28/16 04:53 2.00 Intake and Output 10/28/16 10/28/16 10/29/16 Cumulative From/Thru 14:59 22:59 06:59 10/24/16 19:43 - 10/29/16 06:49 Intake Total 60 ml 480 ml 200 ml 4183 ml Output Total 220 ml 3960 ml Balance 60 ml 480 ml -20 ml 223 ml Intake Oral 480 ml 200 ml 2911 ml IV Total 60 ml 1272 ml Output Urine Total 220 ml 3960 ml # Bowel Movements 1 3 Exam General: Cooperative, No Acute Distress Head: Normal, Skull Deformity, Tenderness Eyes: PERRLA, EOMI, Scleral Anicteric Neck: Supple, No Thyromegaly Chest & Lungs: Chest Wall Normal, Auscultation, coarse crackles, expiratory wheezing. Cardiovascular: Regular Rate/Rhythm, Normal S1, Normal S2, Murmur (systolic) Abdomen: Non-tender, Non-distended, No hepatosplenomegaly Musculoskeletal: Unremarkable, Normal Range of Motion Extremities: No cyanosis/clubbing. 1+ edema bilat right > left. Lab and Diagnostics Result Diagram: 10/29/1650 10/29/16 0850 Microbiology Name: GABRIEL HOLLEY Age/Sex: 85/M Attend Dr: Shirlene Arora MD Acct: [id number] Unit: [id number] Status: ADM IN Location: [place] [address]-1 Re10/24/16 Disch: Specimen: [id number] Collected: 10/24/16 Status: COMP Req#: [id number] Received: 10/24/16 Source: URINE CC Sp Desc : MARQUIS Hebert Dr: Jagjit Saleem MD Ordered: URINE CULT Procedure Result Verified Site Microbiology DIO CULT URINE Final 10/27/16 Organism 1 ESCHERICHIA COLI U COLONY COUNT/QUANTITY >100,000 CFU/ml Cefazolin-predicts results for the oral agents, cefaclor,cefdinir, cefpodoximen, cefprozil, cefuroximne axetil, cephalexin and loracarbed when used for therapy of uncomplicated UTI's due to E. coli, K. pneumoniae, and Proteus mirabilis. Cefpodoxime, cefdinir and cefuroxime axetil may be tested individually because some isolates may be susceptible to these agents while testing resistant to cefazolin. (CLSI O508-H37 pg 53) 1. ESCHERICHIA COLI M.I.C Interp --------- ------ * AMOXICILLIN/CLAVULATE <=2 S * AMPICILLIN <=2 S * CEFAZOLIN (CEPHALOSPORIN) UTI 4 S * CEFEPIME <=1 S * CEFTRIAXONE <=1 S * CEFUROXIME SODIUM 4 S * CIPROFLOXACIN <=0.25 S * ERTAPENEM <=0.5 S * GENTAMICIN <=1 S * IMIPENEM <=1 S * LEVOFLOXACIN <=0.12 S * NITROFURANTOIN <=16 S * TETRACYCLINE <=1 S * TOBRAMYCIN <=1 S * TRIMETHOPRIM/SULFAMETHOXAZOLE <=20 S X-Rays, CTs and MRIs PROCEDURE: X-RAY CHEST ONE VIEW, PORTABLE ([id number]) INDICATIONS: weakness TECHNIQUE: One view of the chest was acquired. COMPARISON: [facility], CR, XR CHEST 2VW, 09/11/2016, 17:22. 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 Lungs and pleura: No pleural effusions or pneumothorax. There are by lateral retrocardiac basilar patchy density consistent with bilateral lower lobe pneumonias. Differential would be chronic congestive failure which I think is less likely to be occurring. Mediastinum: Mediastinal contours appear normal. Heart size is normal. Bones and chest wall: No suspicious bony lesions. Overlying soft tissues appear unremarkable. IMPRESSION: Changes more consistent with bilateral lower lobe pneumonias than of congestive failure. Cardiac Echo Impressions Echocardiogram Report Name: GABRIEL HOLLEY CStudy Date: 10/25/2016 Height: 69.5 in Hospital Exam Location: [facility] Weight: 165 lb Gender: Male BSA: 1.9 m2 : 1930 Age: 85 yrs BP: 108/64 mmHg Ordering Physician: HOSPITALIST SAMHPerformed By: Fer Gastelum Referring Physician: ALFREDO BOLDEN Interpretation Summary The left ventricle is normal in size. The ejection fraction is estimated to be 20-25% (In 07/2015, it was about 30- 35%). Compared to the prior exam, the left ventricular function is reduced. The right ventricle is normal size. The right ventricular systolic function is normal.There is a pacemaker lead in the right ventricle. There is moderate to severe mitral regurgitation. Flow reversal noted in pulmonary veins consistent with significant mitral regurgitation. Compared to the prior echo study, there has been no change in the severity of mitral regurgitation. The aortic valve is not well visualized. The aortic valve is heavily calcified. The calculated aortic valve area is 0.84 cm2. The peak aortic velocity is 2.6 m/sec. The aortic valve mean gradient is 14.4 mmHg. The peak aortic velocity on the previous exam was 2.6 m/sec. There is moderate tricuspid regurgitation. Compared to the prior echo exam, there has been an increase in TR severity. The right ventricular systolic pressure is estimated at 57 mmHg assuming a right atrial pressure of 15 mm Hg. Compared to the prior echo exam, there has been an increase in the severity of pulmonary hypertension. Consider low dose Dobutamine echo to distinguish low flow severe versus true . 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 The patient has been noted to have consistent wet phonation since admission to the hospital. The patient was placed in a stimulation diet by this clinician yesterday and was noted to be tolerating well. The patient and his do not wish to discuss enteral tube feeding at this time. The patient is safest on a p.o. diet of pudding thick pureed with a supraglottic swallow, hold your breath swallow, cough, re-swallow to limit aspiration into the lungs. It is recommended patient use small bites and sips and a swallow, cough, swallow, re-swallow with every bite. The patient should be in full upright position for all meals. It is recommended that this patient take his medication with applesauce. This patient should continue to work with inpatient speech therapy as well as outpatient or home health speech therapy with discharge from this hospital. Assessment & Plan 1. Acute kidney injury on chronic kidney disease stage IV - reaching toward ESRD. - Patient's condition is very delicate. High dose diuretic is required for his complicated heart condition yet it can deteriorate his kidney function. - He is willing to proceed with HD if it could make him live longer. Likewise, his would like to give it a try. - They understand risks and benefits of being on renal replacement therapy. - We will arrange for tunneled catheter on Tuesday and will arrange for OP HD. - Meantime, I will add lV lasix 80 mg x1 today. 2. E.coli UTI 3. Chronic systolic heart failure EF 20-25%, mod-severe MR, severe TR, severe . 4. 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 5. Anemia in CKD, hb 10.3, ferritin 154, Tsat 13% s/p venofer infusion. GI Prophylaxis: Not indicated VTE Mechanical Devices: Intermittant Pneumatic CD Resuscitation Status: DNR/DNI:Do Not Resuscitate/Intubate (DPOA is his Yvrose) Limited Interventions: Medications and IV Fluid Fermin Whaley MD Oct 29, 2016 11:35
--- NOTE | 2016-10-29 11:56 | NUR ---
Social Work: Continued d/c planning Data: Pt is on day 5 of hospitalization. EMR reviewed, pt discussed in rounds. CATERING TRUCK DRIVER spoke with [employer] who states that they do not contract with pt's insurance. CATERING TRUCK DRIVER called [employer] , the only other company which services [employer]. She reviewed and they do contract with pt's insurance. CATERING TRUCK DRIVER informed her of the concerns from [employer] and asked her to review the chart and stated that Pt has participated in PT while in the hospital. CATERING TRUCK DRIVER will continue to follow. Assessment: Pt who is independent at baseline. Plan: Pt will d/c home via POV with when ready to d/c, likely with [facility]. CATERING TRUCK DRIVER will continue to follow. FANTA Boyer
--- NOTE | 2016-10-29 15:14 | NUR ---
Mother's milk is in and she is engorged. Mother continue to latch very shallowly despite ongoing teaching about the importance of deep latch to make sure gets full feeds and drains breasts well. Mother also does not pump breast despite education about the importance of pumping when is getting supplementation. Mother happily supplements with formula after each feed, which infant tolerates well. Plan 1. Breastfeed infant every time he is hungry and at least every 3 hours. Continue to work on latching deeply. 2. Offer 15mL formula or pumped milk after each feed until is well. Addendum: 10/29/16 at 1523 by KIM MCDERMOTT RN Charted on wrong patient in error. Please disregard above note.
--- NOTE | 2016-10-29 15:39 | NUR ---
Social Work: Continued d/c planning Data: Pt is on day 5 of hospitalization. EMR reviewed. PEDIATRIC PHYSICAL THERAPIST spoke with who states that pt will likely d/c on either Tuesday or Tuesday due to nephrology recommending he start dialysis and they want him to remain in the hospital to see how he does with it. PEDIATRIC PHYSICAL THERAPIST spoke with Jane with [facility] who states that they can take pt, but they do not have ST as one of their professions. ST is not an option outpt as pt is homebound. PEDIATRIC PHYSICAL THERAPIST spoke with who states that PEDIATRIC PHYSICAL THERAPIST can speak with pt and spouse about HH without ST. PEDIATRIC PHYSICAL THERAPIST will follow up regarding this on 10/30. PEDIATRIC PHYSICAL THERAPIST will continue to follow. Assessment: Pt who is independent at baseline. Plan: Pt will d/c home via POV when medically stable likely with [facility] with RN/PT/OT/PAPER CORE MACHINE OPERATOR, pending PEDIATRIC PHYSICAL THERAPIST conversation with pt and spouse regarding no ST available for them. PEDIATRIC PHYSICAL THERAPIST can also bring up the option of SNF, which they have previously declined. PEDIATRIC PHYSICAL THERAPIST will continue to follow. FANTA Boyer
--- NOTE | 2016-10-29 15:52 | PCM.PALLBR ---
Palliative Care Recommendation Summary of palliative recommendations: -Symptom management (Pain/other) Profound weakness and debility-multi component with multisystem disease including progressive kidney disease ischemic cardiomyopathy with evidence of progressive CHF and decreasing EF Progressive decrease in mentation with probable mild dementia Weight loss reviewed additional supplements Situational stress with loss of his brother but he denies depression Reviewed today with patient and his and with Dr. Robertson and with Dr. Bales. Discussion with Dr. Robertson and Dr. Bales. Both think patient would benefit from dialysis for sx such as fluid management. Dr. Robertson thinks he can tolerate vol shifts with dialysis. Prognosis: Dr. Robertson thinks his prognosis is fair for 1-[address] Bales thinks high risk and thinks prognosis is poor for 1-2 yr survival. 10/28: Dr. Goff discussed Prognosis with his . Yvrose believes pt will want to give this a try and this is consistent with what he expressed to Palliative Care 10/27. From earlier discussions, pt is to consider dialysis if necessary. He has had some improvement in his CR so may not be emergent but Dr. Bales will begin planning to prepare for this and on 10/28, his arm was mapped for prospective dialysis fistula. He is willing to go to dialysis 3 days a week. His is definitely supporting him in this. She is aware that dialysis can be discontinued at anytime and that he could be transferred to hospice care if that decision comes about. Fluid balance would be improved but his dysphagia and risk for recurrent pneumonia would not be helped with dialysis. Reviewed goals of care: 1. He would like to maximize time at home. 2. However, he also wants to go to dialysis 3 days a week, if he needs it in the future. His supports him in this. 3. They are aware that dialysis can be discontinued at anytime and that he could be transferred to hospice care later. 4. Reviewed function of hospice and offered informational visit this hospitalization, which he declined at this time. POLST: reviewed with Dr. Goff 10/28. He agrees DO NOT RESUSCITATE DO NOT INTUBATE no feeding tube. We will set a goal of completion of POLST prior to discharge.- CODE STATUS is correctly reflected in EMR. 10/29 POLST- again reviewed extensively with patient and his , Dr. Castillo and Dr. Jericho on a.m. rounds. Pt unable to decide now whether he wants dialysis now that he understands the procedure for putting a dialysis catheter in his arm. He thinks this procedure is pretty serious and might not be what he wants. He cannot make up his mind. By end of day, he still could not make up his mind about dialysis and did not sign the POLST. Disposition: likely home with home health services from [facility]. No need to postpone/delay discharge until POLST signed. Pt has been very indecisive regarding this document. -Family/emotional support-primarily his . They have other local family for support. -Spiritual support- not explored. Problems: End of Life Preferences DNR/DNI no feeding tube Goals of Alf to maximize time with Disposition Home Resuscitation Status Resuscitation Status: DNR/DNI:Do Not Resuscitate/Intubate (DPOA is his Yvrose) Limited Interventions: Medications and IV Fluid POLST Updates/Changes Previous POLST?: No Artificially Admin Nutrition: No Artifical Nutrition by Tube POLST Discussed with: Patient, Spouse/Other Total time 95 minutes; >50% face to face with patient and/or family, providing counselling regarding plans and recommendations, and in care coordination with his/her medical teams. Of the total time above, 60 minutes spent in counseling for advanced care planning with the patient/the patients family/the surrogate decision maker. Palliative Brief Note Date of Service Oct 29, 2016 . Patient Identification: 85 yo gentleman with severe ischemic cardiomyopathy with decreasing EF now at 20-25% and progressive CRI now stage 5 with CR at 3.2 was 3.7 BUN over 100 Also dysphagia and probable chronic aspiration now with christal infiltrates c/w pneumonia and increased fatigue and SOB Subjective: Patient is sitting up on side of bed, right side propped up by pillows, trying to sip thickened liquid water and eat pudding. at bedside with him. Laura Castillo MD Oct 29, 2016 15:52
--- NOTE | 2016-10-29 21:06 | PCM.PNMED ---
Subjective Date of Service Oct 29, 2016 Subjective Patient is sitting up beside his bed eating breakfast this morning. Patient was going over the POLST form with Dr. Hart was having a hard time deciding on how to complete the form. Patient has no new complaints and is feeling a little bit stronger. Exam Vital Signs Vital Sign - Last Date Time Temp Pulse Resp B/P Pulse Ox O2 Delivery O2 Flow Rate FiO2 10/29/16 20:03 36.6 72 20 119/69 95 Nasal Cannula 2.00 Intake and Output 10/28/16 10/28/16 10/29/16 Cumulative From/Thru 15:00 23:00 07:00 10/24/16 19:43 - 10/29/16 06:49 Intake Total 60 ml 480 ml 200 ml 4183 ml Output Total 220 ml 3960 ml Balance 60 ml 480 ml -20 ml 223 ml Intake Oral 480 ml 200 ml 2911 ml IV Total 60 ml 1272 ml Output Urine Total 220 ml 3960 ml # Bowel Movements 1 3 Exam General: Patient is sitting up on the side of the bed eating breakfast this morning. He appears a little bit stronger today. HEENT: Head is atraumatic normocephalic. Eyes: Pupils are equally round and reactive to light and accommodation. Extraocular muscles are intact. Sclera are white anicteric. Subconjunctival mucosa is pink. Ears and nose are unremarkable. Oropharynx: There is no mucosal lesions, there is no thrush, there is no pharyngitis. Neck: Is supple, there are no nodes, or masses, or tenderness. Chest: Is clear to auscultation and percussion. There are no rales, rhonchi, wheezes or rubs. Heart: Rate, rhythm is regular. There is a grade 2/6 systolic ejection murmur heard best at the left sternal border. There is no rub or gallop. Abdomen: Good bowel sounds are present. Abdomen is soft, nontender, no organomegaly or masses were appreciated. Extremities: Are symmetrical and well perfused. Pulses are diminished slightly but equal bilaterally. There is pitting edema of both lower extremities right greater than left. There is no evidence of cellulitis, there is no rash. Neurologic: There are no focal neurological deficits. Cranial nerves II through XII are intact. There are no sensory or motor deficits. However, patient is very weak. Psychiatric: Patients mood is calm and shows no sign of agitation. Genital: Deferred Rectal: Deferred Lab and Diagnostics Result Diagram: 10/29/1650 10/29/1650 Microbiology Name: GABRIEL HOLLEY Age/Sex: 85/M Attend Dr: Shirlene Arora MD Acct: [id number] Unit: [id number] Status: ADM IN Location: [facility] 3002-1 Re10/24/16 Disch: Specimen: [id number] Collected: 10/24/16 Status: COMP Req#: [id number] Received: 10/24/16 Source: URINE CC Sp Desc : PP Anup Dr: Jagjit Saleem MD Ordered: URINE CULT Procedure Result Verified Site Microbiology DIO CULT URINE Final 10/27/16-0746 Organism 1 ESCHERICHIA COLI U COLONY COUNT/QUANTITY >100,000 CFU/ml Cefazolin-predicts results for the oral agents, cefaclor,cefdinir, cefpodoximen, cefprozil, cefuroximne axetil, cephalexin and loracarbed when used for therapy of uncomplicated UTI's due to E. coli, K. pneumoniae, and Proteus mirabilis. Cefpodoxime, cefdinir and cefuroxime axetil may be tested individually because some isolates may be susceptible to these agents while testing resistant to cefazolin. (CLSI T476-S84 pg 53) 1. ESCHERICHIA COLI M.I.C Interp --------- ------ * AMOXICILLIN/CLAVULATE <=2 S * AMPICILLIN <=2 S * CEFAZOLIN (CEPHALOSPORIN) UTI 4 S * CEFEPIME <=1 S * CEFTRIAXONE <=1 S * CEFUROXIME SODIUM 4 S * CIPROFLOXACIN <=0.25 S * ERTAPENEM <=0.5 S * GENTAMICIN <=1 S * IMIPENEM <=1 S * LEVOFLOXACIN <=0.12 S * NITROFURANTOIN <=16 S * TETRACYCLINE <=1 S * TOBRAMYCIN <=1 S * TRIMETHOPRIM/SULFAMETHOXAZOLE <=20 S X-Rays, CTs and MRIs PROCEDURE: X-RAY CHEST ONE VIEW, PORTABLE ([id number]) INDICATIONS: weakness TECHNIQUE: One view of the chest was acquired. COMPARISON: [facility], CR, XR CHEST 2VW, 09/11/2016, 17:22. 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 Lungs and pleura: No pleural effusions or pneumothorax. There are by lateral retrocardiac basilar patchy density consistent with bilateral lower lobe pneumonias. Differential would be chronic congestive failure which I think is less likely to be occurring. Mediastinum: Mediastinal contours appear normal. Heart size is normal. Bones and chest wall: No suspicious bony lesions. Overlying soft tissues appear unremarkable. IMPRESSION: Changes more consistent with bilateral lower lobe pneumonias than of congestive failure. Cardiac Echo Impressions Echocardiogram Report Name: GABRIEL HOLLEY CStudy Date: 10/25/2016 Height: 69.5 in Hospital Exam Location: [facility] Weight: 165 lb Gender: Male BSA: 1.9 m2 : 1930 Age: 85 yrs BP: 108/64 mmHg Ordering Physician: HOSPITALIST SAMHPerformed By: Fer Gastelum Referring Physician: ALFREDO BOLDEN Interpretation Summary The left ventricle is normal in size. The ejection fraction is estimated to be 20-25% (In 07/2015, it was about 30- 35%). Compared to the prior exam, the left ventricular function is reduced. The right ventricle is normal size. The right ventricular systolic function is normal.There is a pacemaker lead in the right ventricle. There is moderate to severe mitral regurgitation. Flow reversal noted in pulmonary veins consistent with significant mitral regurgitation. Compared to the prior echo study, there has been no change in the severity of mitral regurgitation. The aortic valve is not well visualized. The aortic valve is heavily calcified. The calculated aortic valve area is 0.84 cm2. The peak aortic velocity is 2.6 m/sec. The aortic valve mean gradient is 14.4 mmHg. The peak aortic velocity on the previous exam was 2.6 m/sec. There is moderate tricuspid regurgitation. Compared to the prior echo exam, there has been an increase in TR severity. The right ventricular systolic pressure is estimated at 57 mmHg assuming a right atrial pressure of 15 mm Hg. Compared to the prior echo exam, there has been an increase in the severity of pulmonary hypertension. Consider low dose Dobutamine echo to distinguish low flow severe versus true . 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 The patient has been noted to have consistent wet phonation since admission to the hospital. The patient was placed in a stimulation diet by this clinician yesterday and was noted to be tolerating well. The patient and his do not wish to discuss enteral tube feeding at this time. The patient is safest on a p.o. diet of pudding thick pureed with a supraglottic swallow, hold your breath swallow, cough, re-swallow to limit aspiration into the lungs. It is recommended patient use small bites and sips and a swallow, cough, swallow, re-swallow with every bite. The patient should be in full upright position for all meals. It is recommended that this patient take his medication with applesauce. This patient should continue to work with inpatient speech therapy as well as outpatient or home health speech therapy with discharge from this hospital. 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 acute, active # Generalized Weakness, present on admission, multifactorial with intravascular volume depletion from recently increased diuretics, advanced HF with hypercatabolic state, and UTI secondary to Escherichia coli. improving slowly. However, likely not to make huge progress due to chronic heart disease and chronic kidney disease.. -We will continue PT -Heart healthy and renal diet -Continue diuresis with Bumex 1 mg by mouth twice a day. Lasix 80 mg IV 1 given today by nephrology. -Continue antibiotics as mentioned below # Acute dyspnea secondary to fluid overload w/ ADHF in the setting of CKDIV, POA , repeat TTE showed decreased EF20-25% from 30-35% in , [id number] -s/p lasix 120mg iv on admission, stopped and tried n/s 80cc per nephrology recommendations as suspected intravascular vol depletion. -Appreciate further diuresis dosing per nephrology service. Currently patient is on Bumex 1 mg by mouth twice a day we will continue. -Continue Coreg 18.75 mg by mouth twice a day -Continue strict I's and O's, and daily weights -Nephrology has recommended removal of the Jefferson catheter. # KAYLEE on CKDIV, present on admission, eGFR close to ESRD, severe uremia, no obvious signs and symptoms of uremia -Appreciate renal input, avoid renal toxin, adjust meds, continue weekly Epogen as per nephrology -We will follow nephrology team's recommendations as follows: "-Acute kidney injury on chronic kidney disease stage IV - reaching toward ESRD. - Patient's condition is very delicate. High dose diuretic is required for his complicated heart condition yet it can deteriorate his kidney function. - He is willing to proceed with HD if it could make him live longer. Likewise, his would like to give it a try. - They understand risks and benefits of being on renal replacement therapy. - We will arrange for tunneled catheter on Tuesday and will arrange for OP HD. - Meantime, I will add lV lasix 80 mg x1 today." # UTI secondary to Escherichia coli, present on admission. -Continue ceftriaxone. chronic, stable # DM2, present on admission, diet Controlled, stable # Hyperthyroidism, Euthyroid state, continue Levothyroxine.75mcg # Chronic Dysphagia, POA, secondary to SCC of neck s/p radiation, continue dysphagia Mechanical Diet, appreciate speech eval recs. pt did tolerate diet today. # Paroxysmal Atrial Fibrillation, POA, Not on anticoagulation due to bleeding history # CAD hx of HI in 1984, and probable acute coronary syndrome in 2012, NSTEMI (no interventions), TTE showed worsening EF, stable mod-severe MR. 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 Goff today and is now a DNR/DNI. Initiate Dr. Goff's input and help us Get it case. Disposition: Suspect patient will be discharged within 1-2days, await PT recs, likely SNF appropriate at this time, however the patient does not want to go to a senior living facility. The is reasonable, compassionate and major caregiver. Patient will likely need home health in addition to the 's good care. Diet as per speech therapy. GI Prophylaxis: Not indicated VTE Mechanical Devices: Intermittant Pneumatic CD Resuscitation Status: DNR/DNI:Do Not Resuscitate/Intubate (DPOA is his Yvrose) Limited Interventions: Medications and IV Fluid Kael Tucker MD Oct 29, 2016 21:05
[2016-10-30] VITALS (7 sets, daily range): BP systolic 133–161; BP diastolic 69–94; PULSE 70–86; RESP 16–24; O2SAT 85–99
[2016-10-30] MEDS: Sodium Chloride LOK Flush 10 mL Syringe IVFLUSH SCH ×3 (00:30→16:16)
--- NOTE | 2016-10-30 04:52 | NUR ---
activity Pt remained in bed for the shift. Cooperative with cares and med pass. Alert and oriented, x3. Slept well for the evening. Will continue to monitor.
[2016-10-30 06:31] LABS: BASOPHILS % (AUTO) 0.9 % (0-3); EOSINOPHILS % (AUTO) 2.1 % (0-5); MONOCYTES % (AUTO) 7.6 % (4-12); Mean Corpuscular Hemoglobin 30.3 pg (27.0-35.0); Mean Corpuscular Volume 96.4 fL (81-100); NEUTROPHILS % (AUTO) 79.8 % (40-74); Platelet Count 173 bil/L (150-400)
[2016-10-30 06:53] LABS: Magnesium 2.2 mg/dL (1.6-2.6)
--- NOTE | 2016-10-30 07:22 | NUR ---
Critical lab Critical lab value of BUN at 101. Call from lab at [phone], paged (Green team) at [phone]. Informed day shift nurse.
[2016-10-30] MEDS: Albuterol 2.5 mg/3 mL Inhalation Solution NEB PRN ×2 (10:04→17:57)
[2016-10-30] MEDS ORDERED: 0.9% Sodium Chloride 100 ML ONE (11:00)
[2016-10-30] MEDS: cefTRIAXone Inj 1,000 MG in IV Premix 1 EACH IV SCH (11:05)
[2016-10-30] MEDS: Isosorbide Mononitrate 30 mg ER24 Tablet PO SCH (11:07)
--- NOTE | 2016-10-30 12:05 | DRSVH ---
PROCEDURE: X-RAY CHEST, TWO VIEWS ([id number]) INDICATIONS: follow-up for CHF/pneumonia TECHNIQUE: 2 views of the chest were acquired. COMPARISON: [facility], CR, XR CHEST 1VW (PORTABLE), 10/24/2016, 20:05. [facility], [facility], [facility] CHEST 2VW, 09/11/2016, 17:22. FINDINGS: Surgical changes and devices: Left chest wall dual-lead pacemaker is stable in position. Lungs and pleura: There are small bilateral pleural effusions, slightly increased from the prior maira dy. Medial bibasilar opacities are also demonstrated consistent with compressive atelectasis, consol idation, or aspiration. There is persistent mild pulmonary edema. Mediastinum: Mediastinal contours are unchanged. Heart size is enlarged. Bones and chest wall: No suspicious bony abnormalities. Soft tissues appear unremarkable. IMPRESSION: 1. Slightly increased pleural effusions with persistent pulmonary edema and cardiomegaly compatible with CHF. 2. Medial bibasilar opacities consistent with compressive atelectasis, consolidation, or aspiration. Dictated by: Virgil Hinojosa M.D. on 10/30/2016 at 12:01 Approved by: Virgil Hinojosa M.D. on 10/30/2016 at 12:01
[2016-10-30] MEDS ORDERED: Furosemide 10 mg/mL 10 mL Inj IVPUSH SCH (12:30)
--- NOTE | 2016-10-30 12:49 | PCM.PNMED ---
Subjective Date of Service Oct 30, 2016 Subjective feeling weak, become more SOB. (+) productive cough. Exam Vital Signs Vital Sign - Last Date Time Temp Pulse Resp B/P Pulse Ox O2 Delivery O2 Flow Rate FiO2 10/30/16 10:09 72 24 92 Room Air 10/30/16 04:51 36.3 161/91 10/29/16 20:03 2.00 Intake and Output 10/29/16 10/29/16 10/30/16 Cumulative From/Thru 15:00 23:00 07:00 10/24/16 19:43 - 10/30/16 06:43 Intake Total 90 ml 418 ml 200 ml 4891 ml Output Total 200 ml 4160 ml Balance 90 ml 418 ml 0 ml 731 ml Intake Oral 418 ml 200 ml 3529 ml IV Total 90 ml 1362 ml Output Urine Total 200 ml 4160 ml # Voids 4 4 8 # Bowel Movements 0 3 Exam General: Cooperative, mild Distress, frail. Head: Normal, Skull Deformity, Tenderness Eyes: PERRLA, EOMI, Scleral Anicteric Neck: Supple, No Thyromegaly Chest & Lungs: Chest Wall Normal, Auscultation, coarse crackles, expiratory wheezing. Cardiovascular: Regular Rate/Rhythm, Normal S1, Normal S2, Murmur (systolic) Abdomen: Non-tender, Non-distended, No hepatosplenomegaly Musculoskeletal: Unremarkable, Normal Range of Motion Extremities: No cyanosis/clubbing. 1+ edema bilat right > left. Lab and Diagnostics Result Diagram: 10/30/16 0535 10/30/16 0535 Microbiology Name: GABRIEL HOLLEY Age/Sex: 85/M Attend Dr: Shirlene Arora MD Acct: [id number] Unit: [id number] Status: ADM IN Location: [facility] [place] 3002-1 Re10/24/16 Disch: Specimen: [id number] Collected: 10/24/16 Status: [facility]#: [id number] Received: 10/24/16 Source: URINE CC Sp Desc : PP Anup Dr: Jagjit Saleem MD Ordered: URINE CULT Procedure Result Verified Site Microbiology DIO CULT URINE Final 10/27/16 Organism 1 ESCHERICHIA COLI U COLONY COUNT/QUANTITY >100,000 CFU/ml Cefazolin-predicts results for the oral agents, cefaclor,cefdinir, cefpodoximen, cefprozil, cefuroximne axetil, cephalexin and loracarbed when used for therapy of uncomplicated UTI's due to E. coli, K. pneumoniae, and Proteus mirabilis. Cefpodoxime, cefdinir and cefuroxime axetil may be tested individually because some isolates may be susceptible to these agents while testing resistant to cefazolin. (CLSI T324-A71 pg 53) 1. ESCHERICHIA COLI M.I.C Interp --------- ------ * AMOXICILLIN/CLAVULATE <=2 S * AMPICILLIN <=2 S * CEFAZOLIN (CEPHALOSPORIN) UTI 4 S * CEFEPIME <=1 S * CEFTRIAXONE <=1 S * CEFUROXIME SODIUM 4 S * CIPROFLOXACIN <=0.25 S * ERTAPENEM <=0.5 S * GENTAMICIN <=1 S * IMIPENEM <=1 S * LEVOFLOXACIN <=0.12 S * NITROFURANTOIN <=16 S * TETRACYCLINE <=1 S * TOBRAMYCIN <=1 S * TRIMETHOPRIM/SULFAMETHOXAZOLE <=20 S X-Rays, CTs and MRIs PROCEDURE: X-RAY CHEST ONE VIEW, PORTABLE ([id number]) INDICATIONS: weakness TECHNIQUE: One view of the chest was acquired. COMPARISON: [facility], CR, XR CHEST 2VW, 09/11/2016, 17:22. 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 Lungs and pleura: No pleural effusions or pneumothorax. There are by lateral retrocardiac basilar patchy density consistent with bilateral lower lobe pneumonias. Differential would be chronic congestive failure which I think is less likely to be occurring. Mediastinum: Mediastinal contours appear normal. Heart size is normal. Bones and chest wall: No suspicious bony lesions. Overlying soft tissues appear unremarkable. IMPRESSION: Changes more consistent with bilateral lower lobe pneumonias than of congestive failure. Cardiac Echo Impressions Echocardiogram Report Name: GABRIEL HOLLEY CStudy Date: 10/25/2016 Height: 69.5 in Hospital Exam Location: [facility] Weight: 165 lb Gender: Male BSA: 1.9 m2 : 1930 Age: 85 yrs BP: 108/64 mmHg Ordering Physician: HOSPITALIST HPerformed By: Fer Gastelum Referring Physician: ALFREDO BOLDEN Interpretation Summary The left ventricle is normal in size. The ejection fraction is estimated to be 20-25% (In 07/2015, it was about 30- 35%). Compared to the prior exam, the left ventricular function is reduced. The right ventricle is normal size. The right ventricular systolic function is normal.There is a pacemaker lead in the right ventricle. There is moderate to severe mitral regurgitation. Flow reversal noted in pulmonary veins consistent with significant mitral regurgitation. Compared to the prior echo study, there has been no change in the severity of mitral regurgitation. The aortic valve is not well visualized. The aortic valve is heavily calcified. The calculated aortic valve area is 0.84 cm2. The peak aortic velocity is 2.6 m/sec. The aortic valve mean gradient is 14.4 mmHg. The peak aortic velocity on the previous exam was 2.6 m/sec. There is moderate tricuspid regurgitation. Compared to the prior echo exam, there has been an increase in TR severity. The right ventricular systolic pressure is estimated at 57 mmHg assuming a right atrial pressure of 15 mm Hg. Compared to the prior echo exam, there has been an increase in the severity of pulmonary hypertension. Consider low dose Dobutamine echo to distinguish low flow severe versus true . 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 The patient has been noted to have consistent wet phonation since admission to the hospital. The patient was placed in a stimulation diet by this clinician yesterday and was noted to be tolerating well. The patient and his do not wish to discuss enteral tube feeding at this time. The patient is safest on a p.o. diet of pudding thick pureed with a supraglottic swallow, hold your breath swallow, cough, re-swallow to limit aspiration into the lungs. It is recommended patient use small bites and sips and a swallow, cough, swallow, re-swallow with every bite. The patient should be in full upright position for all meals. It is recommended that this patient take his medication with applesauce. This patient should continue to work with inpatient speech therapy as well as outpatient or home health speech therapy with discharge from this hospital. Assessment & Plan 1. Acute kidney injury on chronic kidney disease stage IV - reaching toward ESRD. - Patient's condition is very delicate. High dose diuretic is required for his complicated heart condition yet it can deteriorate his kidney function. - He is willing to proceed with HD if it could make him live longer. Likewise, his would like to give it a try. - They understand risks and benefits of being on renal replacement therapy. - We will arrange for tunneled catheter on Tuesday and will arrange for OP HD. 2. E.coli UTI 3. Chronic systolic heart failure EF 20-25%, mod-severe MR, severe TR, severe . 4. 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 5. Anemia in CKD, hb 10.3, ferritin 154, Tsat 13% s/p venofer infusion. Plan: start lasix drip 10 mg/hr. continue supportive treatment. tunneled cath placement on Tuesday. NPO AMN. GI Prophylaxis: Not indicated VTE Mechanical Devices: Intermittant Pneumatic CD Resuscitation Status: DNR/DNI:Do Not Resuscitate/Intubate (DPOA is his Yvrose) Limited Interventions: Medications and IV Fluid Fermin Whaley MD Oct 30, 2016 12:49
--- NOTE | 2016-10-30 14:49 | NUR ---
YENNY signed. FANTA Mejias
--- NOTE | 2016-10-30 15:04 | NUR ---
Social Work-continued d/c planning: Data:EMR reviewed. Pt is on day 6 of hospitalization for CHF per H&P. Pt is several days out from discharge. PT recommending pt can return home with 09/05 assist and HH services. ST and OT also involved. [facility] unable to accept referral, [facility] does not contract with pt's insurance. [facility] willing to accept referral, but does not have ST. agreeable to this. SW followed up with to discuss to see if she would be interested in having pt do outpt services. would prefer to do HH without ST. PT to have catheter placed for dialysis. F2F in folder. SW will continue to follow. Assessment:Pt who would benefit from HH. Plan:Pt to discharge home with support of when medically stable. Pt and continue to decline SNF. Referral made to [facility] for RN,PT,OT, and HAIRSPRING STUDDER. F2F in folder. SW will continue to follow. FANTA Mejias
[2016-10-30] MEDS: Furosemide Inj 100 MG in 0.9% Sodium Chloride 90 ML IV SCH (16:16)
--- NOTE | 2016-10-30 18:22 | NUR ---
Activity Pt continuing to have intermittent episodes of desating especially while sleeping O2 can go to 88% if on RA. Placed pt on 2L NC when sleeping and RA when awake. Using MARKETING UNDERWRITER to monitor. Pt had 2 nebulizer treatments today, which seemed to decrease feeling of SOB. Pt's appetite is decreased and he is still continuing to have difficulty swallowing. Reminded pt to eat slowly and if he starts coughing to stop eating. Pt up to BR, BSC and 1 loop on floor with PT. Pt has multiple skin issues including one tear on his left forearm. Dressing of adaptix, Telfa and gauze wrap. aware of wound. Pt has call light.
--- NOTE | 2016-10-30 21:09 | PCM.PNMED ---
Subjective Date of Service Oct 30, 2016 Subjective Patient was a little bit more short of breath today. He is wearing an oxygen mask. However, later in the day he was seen ambulating in the hallway with the physical therapist and his walker. Exam Vital Signs Vital Sign - Last Date Time Temp Pulse Resp B/P Pulse Ox O2 Delivery O2 Flow Rate FiO2 10/30/16 20:33 Supplement Oxygen 10/30/16 20:28 36.5 86 20 135/85 99 2.00 Intake and Output 10/29/16 10/29/16 10/30/16 Cumulative From/Thru 15:00 23:00 07:00 10/24/16 19:43 - 10/30/16 06:43 Intake Total 90 ml 418 ml 200 ml 4891 ml Output Total 200 ml 4160 ml Balance 90 ml 418 ml 0 ml 731 ml Intake Oral 418 ml 200 ml 3529 ml IV Total 90 ml 1362 ml Output Urine Total 200 ml 4160 ml # Voids 4 4 8 # Bowel Movements 0 3 Exam General: Patient is sitting up on the side of the bed eating breakfast this morning. He appears a little bit stronger today. HEENT: Head is atraumatic normocephalic. Eyes: Pupils are equally round and reactive to light and accommodation. Extraocular muscles are intact. Sclera are white anicteric. Subconjunctival mucosa is pink. Ears and nose are unremarkable. Oropharynx: There is no mucosal lesions, there is no thrush, there is no pharyngitis. Neck: Is supple, there are no nodes, or masses, or tenderness. Chest: Is clear to auscultation and percussion. There are no rales, rhonchi, wheezes or rubs. There is diminished breath sounds as before. Heart: Rate, rhythm is regular. There is a grade 2/6 systolic ejection murmur heard best at the left sternal border. There is no rub or gallop. Abdomen: Good bowel sounds are present. Abdomen is soft, nontender, no organomegaly or masses were appreciated. Extremities: Are symmetrical and well perfused. Pulses are diminished slightly but equal bilaterally. There is pitting edema of both lower extremities right greater than left, however this has improved. There is no evidence of cellulitis , there is no rash. Neurologic: There are no focal neurological deficits. Cranial nerves II through XII are intact. There are no sensory or motor deficits. However, patient is very weak. Psychiatric: Patients mood is calm and shows no sign of agitation. Genital: Deferred Rectal: Deferred Lab and Diagnostics Result Diagram: 10/30/16 0535 10/30/16 0535 Microbiology Name: GABRIEL HOLLEY Age/Sex: 85/M Attend Dr: Shirlene Arora MD Acct: [id number] Unit: [id number] Status: ADM IN Location: [facility] [place] 3002-1 Re10/24/16 Disch: Specimen: [id number] Collected: 10/24/16 Status: COMP Req#: [id number] Received: 10/24/16 Source: URINE CC Sp Desc : PP Anup Dr: Jagjit Saleem MD Ordered: URINE CULT Procedure Result Verified Site Microbiology DIO CULT URINE Final 10/27/16-0746 Organism 1 ESCHERICHIA COLI U COLONY COUNT/QUANTITY >100,000 CFU/ml Cefazolin-predicts results for the oral agents, cefaclor,cefdinir, cefpodoximen, cefprozil, cefuroximne axetil, cephalexin and loracarbed when used for therapy of uncomplicated UTI's due to E. coli, K. pneumoniae, and Proteus mirabilis. Cefpodoxime, cefdinir and cefuroxime axetil may be tested individually because some isolates may be susceptible to these agents while testing resistant to cefazolin. (CLSI B147-V47 pg 53) 1. ESCHERICHIA COLI M.I.C Interp --------- ------ * AMOXICILLIN/CLAVULATE <=2 S * AMPICILLIN <=2 S * CEFAZOLIN (CEPHALOSPORIN) UTI 4 S * CEFEPIME <=1 S * CEFTRIAXONE <=1 S * CEFUROXIME SODIUM 4 S * CIPROFLOXACIN <=0.25 S * ERTAPENEM <=0.5 S * GENTAMICIN <=1 S * IMIPENEM <=1 S * LEVOFLOXACIN <=0.12 S * NITROFURANTOIN <=16 S * TETRACYCLINE <=1 S * TOBRAMYCIN <=1 S * TRIMETHOPRIM/SULFAMETHOXAZOLE <=20 S X-Rays, CTs and MRIs PROCEDURE: X-RAY CHEST ONE VIEW, PORTABLE ([id number]) INDICATIONS: weakness TECHNIQUE: One view of the chest was acquired. COMPARISON: [facility], CR, XR CHEST 2VW, 09/11/2016, 17:22. 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 Lungs and pleura: No pleural effusions or pneumothorax. There are by lateral retrocardiac basilar patchy density consistent with bilateral lower lobe pneumonias. Differential would be chronic congestive failure which I think is less likely to be occurring. Mediastinum: Mediastinal contours appear normal. Heart size is normal. Bones and chest wall: No suspicious bony lesions. Overlying soft tissues appear unremarkable. IMPRESSION: Changes more consistent with bilateral lower lobe pneumonias than of congestive failure. Cardiac Echo Impressions Echocardiogram Report Name: GABRIEL HOLLEY CStudy Date: 10/25/2016 Height: 69.5 in Hospital Exam Location: [facility] Weight: 165 lb Gender: Male BSA: 1.9 m2 : 1930 Age: 85 yrs BP: 108/64 mmHg Ordering Physician: HOSPITALIST SAMHPerformed By: Fer Gastelum Referring Physician: ALFREDO BOLDEN Interpretation Summary The left ventricle is normal in size. The ejection fraction is estimated to be 20-25% (In 07/2015, it was about 30- 35%). Compared to the prior exam, the left ventricular function is reduced. The right ventricle is normal size. The right ventricular systolic function is normal.There is a pacemaker lead in the right ventricle. There is moderate to severe mitral regurgitation. Flow reversal noted in pulmonary veins consistent with significant mitral regurgitation. Compared to the prior echo study, there has been no change in the severity of mitral regurgitation. The aortic valve is not well visualized. The aortic valve is heavily calcified. The calculated aortic valve area is 0.84 cm2. The peak aortic velocity is 2.6 m/sec. The aortic valve mean gradient is 14.4 mmHg. The peak aortic velocity on the previous exam was 2.6 m/sec. There is moderate tricuspid regurgitation. Compared to the prior echo exam, there has been an increase in TR severity. The right ventricular systolic pressure is estimated at 57 mmHg assuming a right atrial pressure of 15 mm Hg. Compared to the prior echo exam, there has been an increase in the severity of pulmonary hypertension. Consider low dose Dobutamine echo to distinguish low flow severe versus true . 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 The patient has been noted to have consistent wet phonation since admission to the hospital. The patient was placed in a stimulation diet by this clinician yesterday and was noted to be tolerating well. The patient and his do not wish to discuss enteral tube feeding at this time. The patient is safest on a p.o. diet of pudding thick pureed with a supraglottic swallow, hold your breath swallow, cough, re-swallow to limit aspiration into the lungs. It is recommended patient use small bites and sips and a swallow, cough, swallow, re-swallow with every bite. The patient should be in full upright position for all meals. It is recommended that this patient take his medication with applesauce. This patient should continue to work with inpatient speech therapy as well as outpatient or home health speech therapy with discharge from this hospital. 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 acute, active # Generalized Weakness, present on admission, multifactorial with intravascular volume depletion from recently increased diuretics, advanced HF with hypercatabolic state and ejection fraction of only 25% with severe aortic stenosis, and UTI secondary to Escherichia coli. improving slowly. However, likely not to make huge progress due to chronic heart disease and chronic kidney disease.. -We will continue PT -Heart healthy and renal diet -Continue diuresis, as Bumex 1 mg by mouth twice a day was not very effective nephrology has started a Lasix drip. -Continue antibiotics as mentioned below # Acute dyspnea secondary to fluid overload w/ ADHF in the setting of CKDIV, POA , repeat TTE showed decreased EF20-25% from 30-35% in , [id number] -Patient started on a Lasix drip today per nephrology -Continue Coreg 18.75 mg by mouth twice a day -Continue strict I's and O's, and daily weights -Nephrology has recommended removal of the Jefferson catheter. # KAYLEE on CKDIV, present on admission, eGFR close to ESRD, severe uremia, no obvious signs and symptoms of uremia -Appreciate nephrology input, avoid renal toxin, adjust meds, continue weekly Epogen as per nephrology -We will follow nephrology team's recommendations as follows: "-Acute kidney injury on chronic kidney disease stage IV - reaching toward ESRD. - Patient's condition is very delicate. High dose diuretic is required for his complicated heart condition yet it can deteriorate his kidney function. - He is willing to proceed with HD if it could make him live longer. Likewise, his would like to give it a try. - They understand risks and benefits of being on renal replacement therapy. - We will arrange for tunneled catheter on Tuesday and will arrange for OP HD. - Meantime, I will add lV lasix 80 mg x1 today." # UTI secondary to Escherichia coli, present on admission. -Continue ceftriaxone. chronic, stable # DM2, present on admission, diet Controlled, stable # Hyperthyroidism, Euthyroid state, continue Levothyroxine.75mcg # Chronic Dysphagia, POA, secondary to SCC of neck s/p radiation, continue dysphagia Mechanical Diet, appreciate speech eval recs. pt did tolerate diet today. # Paroxysmal Atrial Fibrillation, POA, Not on anticoagulation due to bleeding history # CAD hx of [place] in 1984, and probable acute coronary syndrome in 2012, NSTEMI (no interventions), TTE showed worsening EF, stable mod-severe MR. 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 Goff today and is now a DNR/DNI. Initiate Dr. Goff's input and help. Disposition: Suspect patient will be discharged soon after placement of hemodialysis catheter on Tuesday, await PT recs, likely SNF appropriate at this time, however the patient does not want to go to a fdc facility. The is reasonable, compassionate and major caregiver. Patient will likely need home health in addition to the 's good care. Diet as per speech therapy. Pain Evaluation: Adequate Pain Control GI Prophylaxis: Not indicated VTE Mechanical Devices: Intermittant Pneumatic CD Resuscitation Status: DNR/DNI:Do Not Resuscitate/Intubate (DPOA is his Yvrose) Limited Interventions: Medications and IV Fluid Kael Tucker MD Oct 30, 2016 21:09
[2016-10-31] MEDS: Sodium Chloride LOK Flush 10 mL Syringe IVFLUSH SCH ×4 (00:30→20:25)
[2016-10-31] MEDS: Furosemide Inj 100 MG in 0.9% Sodium Chloride 90 ML IV SCH ×3 (02:22→18:50)
--- NOTE | 2016-10-31 05:30 | NUR ---
PT ACTIVITY Pt has slept for brief amts during shift. Pt has been up to chair, sat for a couple hrs during night. Pt up w/ 1-2 persons using FWW. Pt tolerates activity fairly, some SOB w/ activity, recovers quickly. Pt has mostly remained on RA, mid 90s. Pt had shower early this morning as well. Pt resting in bed at this time. Continue to monitor. Call light in reach. Bed alarm on. Intentional rounding.
[2016-10-31 05:38] LABS: BASOPHILS % (AUTO) 0.6 % (0-3); MONOCYTES % (AUTO) 7.8 % (4-12); Mean Corpuscular Hemoglobin 30.3 pg (27.0-35.0); Mean Corpuscular Volume 95.7 fL (81-100); Platelet Count 161 bil/L (150-400)
[2016-10-31 05:50] VITALS: BP 153/89; PULSE 75; RESP 20; O2SAT 97
[2016-10-31] MEDS: Isosorbide Mononitrate 30 mg ER24 Tablet PO SCH (08:15)
[2016-10-31] MEDS: cefTRIAXone Inj 1,000 MG in IV Premix 1 EACH IV SCH (08:15)
[2016-10-31 08:21] VITALS: PULSE 74; RESP 18; O2SAT 97
--- NOTE | 2016-10-31 13:09 | NUR ---
Voiding Pt voided x 3 with 225mls total out, bladder scanned resulted in ) 0mls. Per request of Nephrology, will continue to monitor output, and bladder scan in late afternoon.
--- NOTE | 2016-10-31 13:26 | PCM.PNMED ---
Subjective Date of Service Oct 31, 2016 Subjective He had PT yesterday and today. Respiratory status somewhat improved. now on lasix gtt, low UOP. bladder scan performed at bedside, urine not detected. Exam Vital Signs Vital Sign - Last Date Time Temp Pulse Resp B/P Pulse Ox O2 Delivery O2 Flow Rate FiO2 10/31/16 08:33 Supplement Oxygen 10/31/16 08:21 74 18 97 2.00 10/31/16 05:50 36.4 153/89 Intake and Output 10/30/16 10/30/16 10/31/16 Cumulative From/Thru 15:00 23:00 07:00 10/24/16 19:43 - 10/31/16 06:55 Intake Total 320 ml 99 ml 5310 ml Output Total 250 ml 475 ml 4885 ml Balance 70 ml -376 ml 425 ml Intake Oral 300 ml 0 ml 3829 ml IV Total 20 ml 99 ml 1481 ml Output Urine Total 250 ml 475 ml 4885 ml # Voids 2 6 16 # Bowel Movements 1 1 5 Exam General: Cooperative, mild distress, frail. Head: Normal, Skull Deformity, Tenderness Eyes: PERRLA, EOMI, Scleral Anicteric Neck: Supple, No Thyromegaly Chest & Lungs: Chest Wall Normal, Auscultation, coarse crackles, occasional rhonchi noted, no wheezing. Cardiovascular: Regular Rate/Rhythm, Normal S1, Normal S2, Murmur (systolic) Abdomen: Non-tender, Non-distended, No hepatosplenomegaly Musculoskeletal: Unremarkable, Normal Range of Motion Extremities: No cyanosis/clubbing. 1+ edema bilat right > left. Lab and Diagnostics Result Diagram: 10/31/1652310/31/1624 Microbiology Name: GABRIEL HOLLEY Age/Sex: 85/M Attend Dr: Shirlene Arora MD Acct: [id number] Unit: [id number] Status: ADM IN Location: [place] [id number] Re10/24/16 Disch: Specimen: [id number] Collected: 10/24/16 Status: COMP Req#: [id number] Received: 10/24/16 Source: URINE CC Sp Desc : MARQUIS Hebert Dr: Jagjit Saleem MD Ordered: URINE CULT Procedure Result Verified Site Microbiology DIO CULT URINE Final 10/27/16 Organism 1 ESCHERICHIA COLI U COLONY COUNT/QUANTITY >100,000 CFU/ml Cefazolin-predicts results for the oral agents, cefaclor,cefdinir, cefpodoximen, cefprozil, cefuroximne axetil, cephalexin and loracarbed when used for therapy of uncomplicated UTI's due to E. coli, K. pneumoniae, and Proteus mirabilis. Cefpodoxime, cefdinir and cefuroxime axetil may be tested individually because some isolates may be susceptible to these agents while testing resistant to cefazolin. (CLSI M863-V88 pg 53) 1. ESCHERICHIA COLI M.I.C Interp --------- ------ * AMOXICILLIN/CLAVULATE <=2 S * AMPICILLIN <=2 S * CEFAZOLIN (CEPHALOSPORIN) UTI 4 S * CEFEPIME <=1 S * CEFTRIAXONE <=1 S * CEFUROXIME SODIUM 4 S * CIPROFLOXACIN <=0.25 S * ERTAPENEM <=0.5 S * GENTAMICIN <=1 S * IMIPENEM <=1 S * LEVOFLOXACIN <=0.12 S * NITROFURANTOIN <=16 S * TETRACYCLINE <=1 S * TOBRAMYCIN <=1 S * TRIMETHOPRIM/SULFAMETHOXAZOLE <=20 S X-Rays, CTs and MRIs PROCEDURE: X-RAY CHEST ONE VIEW, PORTABLE ([id number]) INDICATIONS: weakness TECHNIQUE: One view of the chest was acquired. COMPARISON: [facility], CR, XR CHEST 2VW, 09/11/2016, 17:22. 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 Lungs and pleura: No pleural effusions or pneumothorax. There are by lateral retrocardiac basilar patchy density consistent with bilateral lower lobe pneumonias. Differential would be chronic congestive failure which I think is less likely to be occurring. Mediastinum: Mediastinal contours appear normal. Heart size is normal. Bones and chest wall: No suspicious bony lesions. Overlying soft tissues appear unremarkable. IMPRESSION: Changes more consistent with bilateral lower lobe pneumonias than of congestive failure. Cardiac Echo Impressions Echocardiogram Report Name: GABRIEL HOLLEY CStudy Date: 10/25/2016 Height: 69.5 in Hospital Exam Location: [facility] Weight: 165 lb Gender: Male BSA: 1.9 m2 : 1930 Age: 85 yrs BP: 108/64 mmHg Ordering Physician: HOSPITALIST GUMEerformed By: Fer Gastelum Referring Physician: ALFREDO BOLDEN Interpretation Summary The left ventricle is normal in size. The ejection fraction is estimated to be 20-25% (In 07/2015, it was about 30- 35%). Compared to the prior exam, the left ventricular function is reduced. The right ventricle is normal size. The right ventricular systolic function is normal.There is a pacemaker lead in the right ventricle. There is moderate to severe mitral regurgitation. Flow reversal noted in pulmonary veins consistent with significant mitral regurgitation. Compared to the prior echo study, there has been no change in the severity of mitral regurgitation. The aortic valve is not well visualized. The aortic valve is heavily calcified. The calculated aortic valve area is 0.84 cm2. The peak aortic velocity is 2.6 m/sec. The aortic valve mean gradient is 14.4 mmHg. The peak aortic velocity on the previous exam was 2.6 m/sec. There is moderate tricuspid regurgitation. Compared to the prior echo exam, there has been an increase in TR severity. The right ventricular systolic pressure is estimated at 57 mmHg assuming a right atrial pressure of 15 mm Hg. Compared to the prior echo exam, there has been an increase in the severity of pulmonary hypertension. Consider low dose Dobutamine echo to distinguish low flow severe versus true . 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 The patient has been noted to have consistent wet phonation since admission to the hospital. The patient was placed in a stimulation diet by this clinician yesterday and was noted to be tolerating well. The patient and his do not wish to discuss enteral tube feeding at this time. The patient is safest on a p.o. diet of pudding thick pureed with a supraglottic swallow, hold your breath swallow, cough, re-swallow to limit aspiration into the lungs. It is recommended patient use small bites and sips and a swallow, cough, swallow, re-swallow with every bite. The patient should be in full upright position for all meals. It is recommended that this patient take his medication with applesauce. This patient should continue to work with inpatient speech therapy as well as outpatient or home health speech therapy with discharge from this hospital. Assessment & Plan 1. Acute kidney injury on chronic kidney disease stage IV - reaching toward ESRD. - Patient's condition is very delicate. High dose diuretic is required for his complicated heart condition yet it can deteriorate his kidney function. - He is willing to proceed with HD if it could make him live longer. Likewise, his would like to give it a try. - They understand risks and benefits of being on renal replacement therapy. - We will arrange for tunneled catheter on Tuesday and will arrange for OP HD. - continue lasix gtt 10 mg/hr. - repeat PVR in pm. - NPO AMN. 2. E.coli UTI, resolved. 3. Chronic systolic heart failure EF 20-25%, mod-severe MR, severe TR, severe . 4. 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 5. Anemia in CKD, hb 10.3, ferritin 154, Tsat 13% s/p venofer infusion. GI Prophylaxis: Not indicated VTE Mechanical Devices: Intermittant Pneumatic CD Resuscitation Status: DNR/DNI:Do Not Resuscitate/Intubate (DPOA is his Yvrose) Limited Interventions: Medications and IV Fluid Fermin Whaley MD Oct 31, 2016 13:26
[2016-10-31 13:49] VITALS: BP 122/72; PULSE 75; RESP 20; O2SAT 95
[2016-10-31] MEDS: LORazepam 0.5 mg Tablet PO PRN (15:17)
--- NOTE | 2016-10-31 15:25 | NUR ---
Behavior Pt's approached this RN, stating pt wants to go home, the pt is very tired, pt's began to cry stating, "I don't know what to do?" I notified MD, who will stop to see pt when available. Gave pt Ativan to help with tremors and relax, pt very uncomfortable. MD came to see pt, pt and have agreed to meet with hospice tomorrow, as pt wants to go through with dialysis preparation. SW notified via . Will continue to monitor.
--- NOTE | 2016-10-31 16:00 | NUR ---
Social Work-continued d/c planning: Data:EMR reviewed. Pt is on day 7 of hospitalization for CHF per H&P. DEANGELO updated by that pt and are now interested in Hospice services. SW placed a call to Dimple at [facility] and arranged informational visit for tomorrow at 1230. SW updated pt and at bedside and they are agreeable to plan. Referral has also been mad to [facility]. SW will continue to follow. Assessment:Pt to have Hospice informational visit. Plan:Pt and to have Hospice informational visit tomorrow at 1230. Referral has also been mad to [facility]. SW will continue to follow. FANTA Mejias
[2016-10-31 19:49] VITALS: PULSE 45; RESP 16; O2SAT 92
--- NOTE | 2016-10-31 20:30 | PCM.PNMED ---
Subjective Date of Service Oct 31, 2016 Subjective The patient has a poor appetite today. Otherwise he had no other complaints earlier in the day. Later this afternoon he stated that he wanted to go home and he did not want anymore of this treatment. He claimed that we were not doing anything for him and he was tired of waiting and he wanted to go home. Exam Vital Signs Vital Sign - Last Date Time Temp Pulse Resp B/P Pulse Ox O2 Delivery O2 Flow Rate FiO2 10/31/16 19:49 45 16 92 OxyMask 2.00 10/31/16 13:49 35.8 122/72 Intake and Output 10/30/16 10/30/16 10/31/16 Cumulative From/Thru 15:00 23:00 07:00 10/24/16 19:43 - 10/31/16 06:55 Intake Total 320 ml 99 ml 5310 ml Output Total 250 ml 475 ml 4885 ml Balance 70 ml -376 ml 425 ml Intake Oral 300 ml 0 ml 3829 ml IV Total 20 ml 99 ml 1481 ml Output Urine Total 250 ml 475 ml 4885 ml # Voids 2 6 16 # Bowel Movements 1 1 5 Exam General: Patient is laying supine in bed this morning. He has his oxygen mask off and is on a nasal cannula for oxygen. HEENT: Head is atraumatic normocephalic. Eyes: Pupils are equally round and reactive to light and accommodation. Extraocular muscles are intact. Sclera are white anicteric. Subconjunctival mucosa is pink. Ears and nose are unremarkable. Oropharynx: There is no mucosal lesions, there is no thrush, there is no pharyngitis. Neck: Is supple, there are no nodes, or masses, or tenderness. Chest: There is diminished breath sounds bilaterally. There are no rales, rhonchi, wheezes or rubs. Heart: Rate, rhythm is regular. There is a grade 2/6 systolic ejection murmur heard best at the left sternal border. There is no rub or gallop. Abdomen: Good bowel sounds are present. Abdomen is soft, nontender, no organomegaly or masses were appreciated. Extremities: Are symmetrical and well perfused. Pulses are diminished slightly but equal bilaterally. There is pitting edema of both lower extremities right greater than left, however this has improved again today. There is no evidence of cellulitis, there is no rash. Neurologic: There are no focal neurological deficits. Cranial nerves II through XII are intact. There are no sensory or motor deficits. However, patient is very weak. Psychiatric: Patient is more agitated today especially this afternoon and he just wants to go home and states that we are not doing anything for him and this is all "bullsh--". His is quite upset that he was behaving this way. Genital: Deferred Rectal: Deferred Lab and Diagnostics Result Diagram: 10/31/1652310/31/16523 Microbiology Name: GABRIEL HOLLEY Age/Sex: 85/M Attend Dr: Shirlene Arora MD Acct: [id number] Unit: [id number] Status: ADM IN Location: [facility] [place] 3002-1 Re10/24/16 Disch: Specimen: [id number] Collected: 10/24/16 Status: COMP Req#: [id number] Received: 10/24/16 Source: URINE CC Sp Desc : PP Anup Dr: Jagjit Saleem MD Ordered: URINE CULT Procedure Result Verified Site Microbiology DIO CULT URINE Final 10/27/1646 Organism 1 ESCHERICHIA COLI U COLONY COUNT/QUANTITY >100,000 CFU/ml Cefazolin-predicts results for the oral agents, cefaclor,cefdinir, cefpodoximen, cefprozil, cefuroximne axetil, cephalexin and loracarbed when used for therapy of uncomplicated UTI's due to E. coli, K. pneumoniae, and Proteus mirabilis. Cefpodoxime, cefdinir and cefuroxime axetil may be tested individually because some isolates may be susceptible to these agents while testing resistant to cefazolin. (CLSI W055-O15 pg 53) 1. ESCHERICHIA COLI M.I.C Interp --------- ------ * AMOXICILLIN/CLAVULATE <=2 S * AMPICILLIN <=2 S * CEFAZOLIN (CEPHALOSPORIN) UTI 4 S * CEFEPIME <=1 S * CEFTRIAXONE <=1 S * CEFUROXIME SODIUM 4 S * CIPROFLOXACIN <=0.25 S * ERTAPENEM <=0.5 S * GENTAMICIN <=1 S * IMIPENEM <=1 S * LEVOFLOXACIN <=0.12 S * NITROFURANTOIN <=16 S * TETRACYCLINE <=1 S * TOBRAMYCIN <=1 S * TRIMETHOPRIM/SULFAMETHOXAZOLE <=20 S X-Rays, CTs and MRIs PROCEDURE: X-RAY CHEST ONE VIEW, PORTABLE ([id number]) INDICATIONS: weakness TECHNIQUE: One view of the chest was acquired. COMPARISON: , CR, XR CHEST 2VW, 09/11/2016, 17:22. 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 Lungs and pleura: No pleural effusions or pneumothorax. There are by lateral retrocardiac basilar patchy density consistent with bilateral lower lobe pneumonias. Differential would be chronic congestive failure which I think is less likely to be occurring. Mediastinum: Mediastinal contours appear normal. Heart size is normal. Bones and chest wall: No suspicious bony lesions. Overlying soft tissues appear unremarkable. IMPRESSION: Changes more consistent with bilateral lower lobe pneumonias than of congestive failure. Cardiac Echo Impressions Echocardiogram Report Name: GABRIEL HOLLEY CStudy Date: 10/25/2016 Height: 69.5 in Hospital Exam Location: [facility] Weight: 165 lb Gender: Male BSA: 1.9 m2 : 1930 Age: 85 yrs BP: 108/64 mmHg Ordering Physician: HOSPITALIST SVHPerformed By: Fer Gastelum Referring Physician: ALFREDO BOLDEN Interpretation Summary The left ventricle is normal in size. The ejection fraction is estimated to be 20-25% (In 07/2015, it was about 30- 35%). Compared to the prior exam, the left ventricular function is reduced. The right ventricle is normal size. The right ventricular systolic function is normal.There is a pacemaker lead in the right ventricle. There is moderate to severe mitral regurgitation. Flow reversal noted in pulmonary veins consistent with significant mitral regurgitation. Compared to the prior echo study, there has been no change in the severity of mitral regurgitation. The aortic valve is not well visualized. The aortic valve is heavily calcified. The calculated aortic valve area is 0.84 cm2. The peak aortic velocity is 2.6 m/sec. The aortic valve mean gradient is 14.4 mmHg. The peak aortic velocity on the previous exam was 2.6 m/sec. There is moderate tricuspid regurgitation. Compared to the prior echo exam, there has been an increase in TR severity. The right ventricular systolic pressure is estimated at 57 mmHg assuming a right atrial pressure of 15 mm Hg. Compared to the prior echo exam, there has been an increase in the severity of pulmonary hypertension. Consider low dose Dobutamine echo to distinguish low flow severe versus true . 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 The patient has been noted to have consistent wet phonation since admission to the hospital. The patient was placed in a stimulation diet by this clinician yesterday and was noted to be tolerating well. The patient and his do not wish to discuss enteral tube feeding at this time. The patient is safest on a p.o. diet of pudding thick pureed with a supraglottic swallow, hold your breath swallow, cough, re-swallow to limit aspiration into the lungs. It is recommended patient use small bites and sips and a swallow, cough, swallow, re-swallow with every bite. The patient should be in full upright position for all meals. It is recommended that this patient take his medication with applesauce. This patient should continue to work with inpatient speech therapy as well as outpatient or home health speech therapy with discharge from this hospital. 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 acute, active # Generalized Weakness, present on admission, multifactorial with intravascular volume depletion from recently increased diuretics, advanced HF with hypercatabolic state and ejection fraction of only 25% with severe aortic stenosis, and UTI secondary to Escherichia coli. improving slowly. However, likely not to make much progress due to chronic heart disease and chronic kidney disease.. -We will continue PT -Heart healthy and renal diet -Continue diuresis, as Bumex 1 mg by mouth twice a day was not very effective, nephrology has started a Lasix drip yesterday. Will continue Lasix drip. -Continue antibiotics as mentioned below # Acute dyspnea secondary to fluid overload w/ ADHF in the setting of CKDIV, POA , repeat TTE showed decreased EF20-25% from 30-35% in , [id number] -Patient started on a Lasix drip yesterday per nephrology -Continue Coreg 18.75 mg by mouth twice a day -Continue strict I's and O's, and daily weights -Nephrology has recommended removal of the Jefferson catheter. # KAYLEE on CKDIV, present on admission, eGFR close to ESRD, severe uremia, no obvious signs and symptoms of uremia -Appreciate nephrology input, avoid renal toxin, adjust meds, continue weekly Epogen as per nephrology -We will follow nephrology team's recommendations as follows: -Acute kidney injury on chronic kidney disease stage IV - reaching toward ESRD. - Patient's condition is very delicate. High dose diuretic is required for his complicated heart condition yet it can deteriorate his kidney function. - He was willing to proceed with HD if it could make him live longer. Likewise, his would like to give it a try. However, this afternoon he seems to be changing his mind and wants to just go home. - They understand risks and benefits of being on renal replacement therapy. - We will arrange for tunneled catheter on Tuesday and will arrange for OP HD. - Meantime, I will add lV lasix 80 mg x1 today." # UTI secondary to Escherichia coli, present on admission. -Continue ceftriaxone. chronic, stable # DM2, present on admission, diet Controlled, stable # Hyperthyroidism, Euthyroid state, continue Levothyroxine.75mcg # Chronic Dysphagia, POA, secondary to SCC of neck s/p radiation, continue dysphagia Mechanical Diet, appreciate speech eval recs. pt did tolerate diet today. # Paroxysmal Atrial Fibrillation, POA, Not on anticoagulation due to bleeding history # CAD hx of ID in 1984, and probable acute coronary syndrome in 2012, NSTEMI (no interventions), TTE showed worsening EF, stable mod-severe MR. 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 Goff today and is now a DNR/DNI. Initiate Dr. Goff's input and help. Disposition: Suspect patient will be discharged soon after placement of hemodialysis catheter on Tuesday, await PT recs, likely SNF appropriate at this time, however the patient does not want to go to a [place] [facility] facility. The is reasonable, compassionate and major caregiver. Patient will likely need home health in addition to the 's good care. Diet as per speech therapy. Pain Evaluation: Adequate Pain Control GI Prophylaxis: Not indicated VTE Mechanical Devices: Intermittant Pneumatic CD Resuscitation Status: DNR/DNI:Do Not Resuscitate/Intubate (DPOA is his Yvrose) Limited Interventions: Medications and IV Fluid Kael Tucker MD Oct 31, 2016 20:30
[2016-10-31 21:12] VITALS: BP 149/85; PULSE 75; RESP 20; O2SAT 97
[2016-10-31] MEDS: HYDROcodone-APAP 5-325 mg Tablet PO PRN (21:32)
[2016-11-01] MEDS: Furosemide Inj 100 MG in 0.9% Sodium Chloride 90 ML IV SCH ×2 (00:15→12:04)
[2016-11-01 04:42] VITALS: BP 152/90; PULSE 71; RESP 20; O2SAT 94
--- NOTE | 2016-11-01 05:43 | NUR ---
Pain/NOC Shift: Pt c/o JOHNSON 04/25 x1, medication administered; effective. Pt a bit restless during the night, wanting to get up and "get going". Pt calmed down when sitting in a reclining chair. Pt pleasant and cooperative with care. Slept off/on throughout the night.
[2016-11-01 06:40] LABS: BASOPHILS % (AUTO) 0.8 % (0-3); EOSINOPHILS % (AUTO) 0.9 % (0-5); MONOCYTES % (AUTO) 7.5 % (4-12); Mean Corpuscular Hemoglobin 30.2 pg (27.0-35.0); Mean Corpuscular Volume 96.5 fL (81-100); Platelet Count 148 bil/L (150-400)
[2016-11-01 07:19] LABS: INR 1.18 ratio
[2016-11-01 07:49] VITALS: PULSE 74; RESP 16; O2SAT 90
[2016-11-01] MEDS: Sodium Chloride LOK Flush 10 mL Syringe IVFLUSH SCH (07:53)
[2016-11-01] MEDS: cefTRIAXone Inj 1,000 MG in IV Premix 1 EACH IV SCH (08:04)
[2016-11-01] MEDS: Isosorbide Mononitrate 30 mg ER24 Tablet PO SCH (08:05)
[2016-11-01] MEDS: HYDROcodone-APAP 5-325 mg Tablet PO PRN (08:17)
--- NOTE | 2016-11-01 09:00 | PCM.PALLBR ---
Palliative Care Recommendation Summary of palliative recommendations: -Symptom management (Pain/other) 1. Profound weakness and debility-multi component with multisystem disease including progressive kidney disease ischemic cardiomyopathy with evidence of progressive CHF and decreasing EF 2.Progressive decrease in mentation with probable mild dementia 3.Weight loss reviewed additional supplements 4.Situational stress with loss of his brother but he denies depression Reviewed today with patient and his and with Dr. Robertson and with Dr. Bales. Discussion with Dr. Robertson and Dr. Bales. Both think patient would benefit from dialysis for sx such as fluid management. Dr. Robertson thinks he can tolerate vol shifts with dialysis. Prognosis: Dr. Robertson thinks his prognosis is fair for 1-[address] Bales thinks high risk and thinks prognosis is poor for 1-2 yr survival. 10/28: Dr. Goff discussed Prognosis with his . Yvrose believes pt will want to give this a try and this is consistent with what he expressed to Palliative Care 10/27. From earlier discussions this hospitalization: pt was willing to consider dialysis if necessary. He has had some improvement in his CR so may not be emergent but Dr. Bales will begin planning to prepare for this and on 10/28, his arm was mapped for prospective dialysis fistula.He is willing to go to dialysis 3 days a week. His is definitely supporting him in this. She is aware that dialysis can be discontinued at anytime and that he could be transferred to hospice care if that decision comes about. [facility] counseled that although fluid balance would be improved with dialysis , his dysphagia and risk for recurrent pneumonia would not be helped. Reviewed goals of care as of 10/29: 1. He would like to maximize time at home. 2. However, he also wants to go to dialysis 3 days a week, if he needs it in the future. His supports him in this. 3. They are aware that dialysis can be discontinued at anytime and that he could be transferred to hospice care later. 4. Reviewed function of hospice and offered informational visit this hospitalization, which he declined on 10/29. POLST: 1. reviewed with Dr. Goff 10/28. He agrees DO NOT RESUSCITATE/DO NOT INTUBATE/no feeding tube. We will set a goal of completion of POLST prior to discharge. CODE STATUS is correctly reflected in EMR. 2. again reviewed extensively on 10/29 with patient and his , Dr. Castillo and Dr. Tucker on a.m. rounds. Pt unable to decide now whether he wants dialysis as he has concerns the procedure for putting a dialysis catheter in his arm. He thinks this procedure is pretty serious and might not be what he wants. He cannot make up his mind. By end of day, he still could not make up his mind about dialysis and did not sign the POLST. PLAN: 1. 11/01: Pt and his Yvrose are meeting with hospice at 1230pm today(11/01 ). They declined hospice and dialysis catheter placement procedure is at 13: 15pm today. 2. Plan for 11/02: Palliative Care will again attempt to get pt to sign POLST prior to discharge. (We cannot on 11/01 as he is somnolent and about to go for his procedure.) Disposition: Unclear. 1.Needs clarification by CM. thinks patient is going to a SNF, but CM last note states that it will likely be home with home health services from [facility]. 2.Please DO NOT postpone/delay discharge to get POLST signed. Pt has been very indecisive regarding this document. -Family/emotional support-primarily his . They have other local family for support. -Spiritual support- not explored. Problems: End of Life Preferences DNR/DNI no feeding tube Goals of Shelter to maximize time with Disposition Home Resuscitation Status Resuscitation Status: DNR/DNI:Do Not Resuscitate/Intubate (DPOA is his Yvrose) Limited Interventions: Medications and IV Fluid POLST Updates/Changes Previous POLST?: No Artificially Admin Nutrition: No Artifical Nutrition by Tube POLST Discussed with: Patient, Spouse/Other . Advanced Care Planning Address: POLST Total time 35 minutes; >50% face to face with patient and/or family, providing counselling regarding plans and recommendations, and in care coordination with his/her medical teams. Palliative Brief Note Date of Service Nov 01, 2016 . Patient Identification: 85 yo gentleman with severe ischemic cardiomyopathy with decreasing EF now at 20-25% and progressive CRI now stage 5 and had been considered for possible HD as inpatient or outpatient. Hospital Course: Over this hospitalization he has had gradual slight improvement in Cr at 3.09 and BUN 104 today (Nov 01). He has been mapped for future dialysis, but over the weekend he decided that he wanted to go home without tubes and dialysis. He and his agreed to delay home discharge ( which would have been AMA as he is still on a lasix gtt) to listen to a hospice informational visit and consider hospice. Also this admission, he has had dysphagia and probable chronic aspiration and has been treated for christal infiltrates c/w pneumonia. Today is Hospital Day 8 (Nov 01) Subjective: Mr. Mansfield is somnolent, seated in a chair, does not participate in conversation with Dr. Castillo and his Yvrose. Yvrose says "the hospice lady was just here and he is not ready for hospice, he wants dialysis." Dr. Castillo asked Yvrose what the plan is after the dialysis catheter is placed later today. Yvrose thinks will go to SNF for rehab and then home. Dr. Castillo asks if Yvrose has a back-up plan if Mr. Mansfield is unable to improve at rehab and still needs assistance to stand/transfer at home. Yvrose ways [facility], but couldn't call them today, due to the holiday, all their offices are closed. Exam: The patient is somnolent, nonverbal, frail, chronically sick appearing man , with wet rhonchi audible in upper airways without stethescope placement. His heart has regular rhythm and rate, abdomen protuberant, soft, nontender, faint bowel sounds, legs are pale, hairfree, puffy 1+ edema at right>left lower legs. Laura Castillo MD Nov 01, 2016 09:00
--- NOTE | 2016-11-01 11:44 | NUR ---
Palliative care note D/A: Phone call from Dimple at [facility] today to inquire about info visit. Review of chart had revealed differing information about possibility of dialysis and where pt/spouse might be in relation to continuation of more treatment oriented care. Case discussed with both Dr. Castillo and Vane owens. Pt/family had expressed interest in dialysis on 10/29/16. Over weekend had indicated to Dr. Tucker that they were considering not moving ahead with dialysis and he had asked Vane to arrange for [facility] info visit. Today there is further discussion regarding dialysis. Vane owens notes that she spoke to pt/spouse who are interested in considering dialysis but also want to have [facility] info visit. Dimple of [facility] informed that family/pt do indeed wish to have info visit today at 1230. P: Palliative care to follow. Diana [facility] [place] Addendum: 11/01/16 at 1442 by VANE PEPE Palliative care note amendment D/A: Rapid response called over head, alerted Dr. Castillo who went to be with spouse. Pt shortly thereafter. Phone call to [facility] to alert-have left message. Have also left message for Vane owens to alert her to call to [facility]. P: Palliative care to follow as needed. Diana [facility] [place]
[2016-11-01] MEDS: LORazepam 0.5 mg Tablet PO PRN (12:02)
--- NOTE | 2016-11-01 13:26 | PCM.PNMED ---
Subjective Date of Service Nov 01, 2016 Subjective She is well-known to me from ongoing outpatient follow-up for his chronic kidney disease. He was recently admitted for acute decompensated congestive heart failure and acute on chronic kidney injury versus end-stage renal disease. He is scheduled to have a tunnel catheter for some difference of opinion as follows heart proceed with dialysis or with hospice. The palliative care team is beating with the patient and his family today. Patient is quite somnolent and minimally responsive today. I had a long talk with the patient's concerning options today. Exam Vital Signs Vital Sign - Last Date Time Temp Pulse Resp B/P Pulse Ox O2 Delivery O2 Flow Rate FiO2 11/01/16 07:49 74 16 90 Room Air 11/01/16 04:42 36.2 152/90 10/31/16 21:12 2.00 Intake and Output 10/31/16 10/31/16 11/01/16 Cumulative From/Thru 15:00 23:00 07:00 10/24/16 19:43 - 11/01/16 06:45 Intake Total 646 ml 391 ml 6347 ml Output Total 375 ml 175 ml 5435 ml Balance 271 ml 216 ml 912 ml Intake Oral 646 ml 100 ml 4575 ml IV Total 291 ml 1772 ml Output Urine Total 375 ml 175 ml 5435 ml # Voids 3 19 # Bowel Movements 1 0 6 Lab and Diagnostics Result Diagram: 11/01/1662911/01/16629 Microbiology Name: GABRIEL HOLLEY Age/Sex: 85/M Attend Dr: Shirlene Arora MD Acct: [id number] Unit: [id number] Status: ADM IN Location: [facility] [place] 3002-1 Re10/24/16 Disch: Specimen: [id number] Collected: 10/24/16 Status: DENNIS Mercer#: [id number] Received: 10/24/16 Source: URINE CC Sp Desc : MARQUIS Hebert Dr: Jagjit Saleem MD Ordered: URINE CULT Procedure Result Verified Site Microbiology DIO CULT URINE Final 10/27/16 Organism 1 ESCHERICHIA COLI U COLONY COUNT/QUANTITY >100,000 CFU/ml Cefazolin-predicts results for the oral agents, cefaclor,cefdinir, cefpodoximen, cefprozil, cefuroximne axetil, cephalexin and loracarbed when used for therapy of uncomplicated UTI's due to E. coli, K. pneumoniae, and Proteus mirabilis. Cefpodoxime, cefdinir and cefuroxime axetil may be tested individually because some isolates may be susceptible to these agents while testing resistant to cefazolin. (CLSI S930-N15 pg 53) 1. ESCHERICHIA COLI M.I.C Interp --------- ------ * AMOXICILLIN/CLAVULATE <=2 S * AMPICILLIN <=2 S * CEFAZOLIN (CEPHALOSPORIN) UTI 4 S * CEFEPIME <=1 S * CEFTRIAXONE <=1 S * CEFUROXIME SODIUM 4 S * CIPROFLOXACIN <=0.25 S * ERTAPENEM <=0.5 S * GENTAMICIN <=1 S * IMIPENEM <=1 S * LEVOFLOXACIN <=0.12 S * NITROFURANTOIN <=16 S * TETRACYCLINE <=1 S * TOBRAMYCIN <=1 S * TRIMETHOPRIM/SULFAMETHOXAZOLE <=20 S X-Rays, CTs and MRIs PROCEDURE: X-RAY CHEST ONE VIEW, PORTABLE ([id number]) INDICATIONS: weakness TECHNIQUE: One view of the chest was acquired. COMPARISON: [facility], CR, XR CHEST 2VW, 09/11/2016, 17:22. 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 Lungs and pleura: No pleural effusions or pneumothorax. There are by lateral retrocardiac basilar patchy density consistent with bilateral lower lobe pneumonias. Differential would be chronic congestive failure which I think is less likely to be occurring. Mediastinum: Mediastinal contours appear normal. Heart size is normal. Bones and chest wall: No suspicious bony lesions. Overlying soft tissues appear unremarkable. IMPRESSION: Changes more consistent with bilateral lower lobe pneumonias than of congestive failure. Cardiac Echo Impressions Echocardiogram Report Name: GABRIEL HOLLEY CStudy Date: 10/25/2016 Height: 69.5 in Hospital Exam Location: [facility] Weight: 165 lb Gender: Male BSA: 1.9 m2 : 1930 Age: 85 yrs BP: 108/64 mmHg Ordering Physician: HOSPITALIST SVHPerformed By: Fer Gastelum Referring Physician: ALFREDO BOLDEN Interpretation Summary The left ventricle is normal in size. The ejection fraction is estimated to be 20-25% (In 07/2015, it was about 30- 35%). Compared to the prior exam, the left ventricular function is reduced. The right ventricle is normal size. The right ventricular systolic function is normal.There is a pacemaker lead in the right ventricle. There is moderate to severe mitral regurgitation. Flow reversal noted in pulmonary veins consistent with significant mitral regurgitation. Compared to the prior echo study, there has been no change in the severity of mitral regurgitation. The aortic valve is not well visualized. The aortic valve is heavily calcified. The calculated aortic valve area is 0.84 cm2. The peak aortic velocity is 2.6 m/sec. The aortic valve mean gradient is 14.4 mmHg. The peak aortic velocity on the previous exam was 2.6 m/sec. There is moderate tricuspid regurgitation. Compared to the prior echo exam, there has been an increase in TR severity. The right ventricular systolic pressure is estimated at 57 mmHg assuming a right atrial pressure of 15 mm Hg. Compared to the prior echo exam, there has been an increase in the severity of pulmonary hypertension. Consider low dose Dobutamine echo to distinguish low flow severe versus true . 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 The patient has been noted to have consistent wet phonation since admission to the hospital. The patient was placed in a stimulation diet by this clinician yesterday and was noted to be tolerating well. The patient and his do not wish to discuss enteral tube feeding at this time. The patient is safest on a p.o. diet of pudding thick pureed with a supraglottic swallow, hold your breath swallow, cough, re-swallow to limit aspiration into the lungs. It is recommended patient use small bites and sips and a swallow, cough, swallow, re-swallow with every bite. The patient should be in full upright position for all meals. It is recommended that this patient take his medication with applesauce. This patient should continue to work with inpatient speech therapy as well as outpatient or home health speech therapy with discharge from this hospital. Assessment & Plan Impression #1 end-stage renal disease #2 acute decompensated congestive heart failure #3 hypertension with hypertensive heart disease with evidence for heart failure number for diabetic nephropathy Recommendations #1 GI Prophylaxis: Not indicated VTE Mechanical Devices: Intermittant Pneumatic CD Resuscitation Status: DNR/DNI:Do Not Resuscitate/Intubate (KADE is his Yvrose) Limited Interventions: Medications and IV Fluid Ganga Parmar DO Nov 01, 2016 13:26
--- NOTE | 2016-11-01 14:32 | NUR ---
Responded to [employer]AC[employer] patient had
--- NOTE | 2016-11-01 14:57 | NUR ---
Pt passing Pt passed at 1420, at bedside, called to room.
--- NOTE | 2016-11-01 15:15 | NUR ---
Social Work-discharge: SW updated that pt has . No other SW needs. FANTA Mejias
--- NOTE | 2016-11-01 16:01 | NUR ---
spiritual care: rapid response emotional support to immediately following pt's . Sister and niece in room with , all grieving. No other spiritual care needs identified.
--- NOTE | 2016-11-02 00:41 | PCM.DC.MEX ---
Discharge Summary Date of Service Nov 01, 2016 Dates of Hospitalization Date of Hospital Admission Oct 24, 2016 at 23:01 Date of Expiration: Nov 01, 2016 Time of Expiration: 12:20 (this is a guesstimate the nurses actually have the accurate time of ) Providers: Admitting Physician: Shirlene Arora MD Primary Care Physician: Mino Navarrete MD Attending Physician: Shirlene Arora MD Diagnosis at Time of Cardiomyopathy with ejection fraction of only 25% and aortic stenosis. End- stage renal disease stage V and respiratory failure. Consultations Cardiology with Dr. Patel and nephrology consult team. Procedures XRay, CTs & MRIs PROCEDURE: X-RAY CHEST ONE VIEW, PORTABLE ([id number]) INDICATIONS: weakness TECHNIQUE: One view of the chest was acquired. COMPARISON: [facility], CR, XR CHEST 2VW, 09/11/2016, 17:22. 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 Lungs and pleura: No pleural effusions or pneumothorax. There are by lateral retrocardiac basilar patchy density consistent with bilateral lower lobe pneumonias. Differential would be chronic congestive failure which I think is less likely to be occurring. Mediastinum: Mediastinal contours appear normal. Heart size is normal. Bones and chest wall: No suspicious bony lesions. Overlying soft tissues appear unremarkable. IMPRESSION: Changes more consistent with bilateral lower lobe pneumonias than of congestive failure. Cardiac Echo Impression Echocardiogram Report Name: GABRIEL HOLLEY CStudy Date: 10/25/2016 Height: 69.5 in Hospital Exam Location: [facility] Weight: 165 lb Gender: Male BSA: 1.9 m2 : 1930 Age: 85 yrs BP: 108/64 mmHg Ordering Physician: HOSPITALIST SAMHPerformed By: Fer Gastelum Referring Physician: ALFREDO BOLDEN Interpretation Summary The left ventricle is normal in size. The ejection fraction is estimated to be 20-25% (In 07/2015, it was about 30- 35%). Compared to the prior exam, the left ventricular function is reduced. The right ventricle is normal size. The right ventricular systolic function is normal.There is a pacemaker lead in the right ventricle. There is moderate to severe mitral regurgitation. Flow reversal noted in pulmonary veins consistent with significant mitral regurgitation. Compared to the prior echo study, there has been no change in the severity of mitral regurgitation. The aortic valve is not well visualized. The aortic valve is heavily calcified. The calculated aortic valve area is 0.84 cm2. The peak aortic velocity is 2.6 m/sec. The aortic valve mean gradient is 14.4 mmHg. The peak aortic velocity on the previous exam was 2.6 m/sec. There is moderate tricuspid regurgitation. Compared to the prior echo exam, there has been an increase in TR severity. The right ventricular systolic pressure is estimated at 57 mmHg assuming a right atrial pressure of 15 mm Hg. Compared to the prior echo exam, there has been an increase in the severity of pulmonary hypertension. Consider low dose Dobutamine echo to distinguish low flow severe versus true . 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 The patient has been noted to have consistent wet phonation since admission to the hospital. The patient was placed in a stimulation diet by this clinician yesterday and was noted to be tolerating well. The patient and his do not wish to discuss enteral tube feeding at this time. The patient is safest on a p.o. diet of pudding thick pureed with a supraglottic swallow, hold your breath swallow, cough, re-swallow to limit aspiration into the lungs. It is recommended patient use small bites and sips and a swallow, cough, swallow, re-swallow with every bite. The patient should be in full upright position for all meals. It is recommended that this patient take his medication with applesauce. This patient should continue to work with inpatient speech therapy as well as outpatient or home health speech therapy with discharge from this hospital. Brief History BP: 130/70mmHg, HR:75-90bpm (Irreg/Irreg) Weight: 77.4Kg (Bed Scale) Telem: 12 Lead ECG: Mr. Gabriel Robins is a pleasant 85-year-old male that is clinically followed in the [facility] Cardiology Department by Dr. Salvatore Robertson. 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 In addition, the patient has a history of stage IV CKD, squamous cell carcinoma of the neck (S/P radiation), chronic anemia, T2 DM. The patient was brought to the [facility] emergency department via EMS on 10/24/2016 the patient was admitted to [facility] with a two- week history of worsening generalized weakness, increasing lethargy and dyspnea. The patient reports that his breathing was becoming more labored prior to admission. The patient reports that he had seen Dr. Robertson on 2015, during that visit the patient was told to increase his Lasix to 160mg daily due to the increase edema of his legs. The patient reports that he increased his Lasix as directed for a few days, but, he developed dizziness. The patient contacted [facility] regarding his symptoms and he was subsequently instructed to return to decrease his Lasix back to 80 mg/day. The patient relates that he did experience a ground level fall 3 days ago. The patient reports that his recent fall was not very traumatic and patient did not lose consciousness or hit his head. The patient reports that he slipped out of his chair and subsequently fell onto the ground. In regards to the patient's stage IV CKD, he has previously been seen by nephrology and told that he would likely need dialysis soon. Today, the patient denies any type of anginal symptoms, he continues to feel dyspneic at rest, he continues to have bilateral lower extremity swelling. He denies palpitations, he denies PND/orthopnea symptoms. He denies dizziness, lightheadedness, presyncope or sanjeev syncopal episodes. Home Medications: 1. Aspirin 81 mg by mouth daily 2. Coreg 25 mg one by mouth twice a day 3. Imdur 30 mg 2 tabs by mouth every day 4. Furosemide 80 mg 2 tabs by mouth daily 5. Atorvastatin 40 mg by mouth daily Current labs: 10/28/2016 1. CBC: H/H: 9.5/30 (stable) 2. CMP: BUN/creatinine: 94 / 3.13, Na+138, K+ 3.8 2-D echocardiogram: 10/25/2016 The left ventricle is normal in size. The ejection fraction estimated to be 2025%. (In 07/2015, it was about 30-35%). Compared to the prior echo exam, the left ventricular function is reduced. Right ventricle is normal size. The right ventricular systolic function is normal. There is a pacemaker lead in the right ventricle. There is moderate severe mitral regurgitation. Flow reversal noted in pulmonary veins consistent with significant mitral regurgitation. Compared to the prior echo study, there has been no change in severity of the mitral regurgitation. Aortic valve was not well visualized. The aortic valve is heavily calcified. The calculated aortic valve area is 0.84 cm. The peak aortic velocity is 2.6 m /s. The aortic valve mean gradient is 14.4 mmHg. The peak aortic velocity on the previous exam was 2.6 m/s. Consider low dose dobutamine echo to distinguish low-flow severe left ear versus true aortic stenosis. There is moderate tricuspid regurgitation. Compared to the prior echo exam there is been an increase in the TR severity. The right ventricular systolic pressure is estimated at 57 mmHg assuming a right atrial pressure 15 mmHg. Compared to the prior echo exam there is been an increase in severity of pulmonary hypertension. CXR: Changes more consistent with bilateral lower lobe pneumonias than of congestive failure Hospital Course 85 year old male with a h/o stage IV CKD, SCC of neck s/p radiation, paroxysmal Afib not on anticoagulation, Dual lead pacemaker in place, CAD, CHF, COPD, hypothyroidism, controlled DM2, CVA, and hyperlipidemia who presented to the ED via EMS for complaints of generalized weakness and fatigue that began a couple weeks ago. acute, active # Generalized Weakness, present on admission, multifactorial with intravascular volume depletion from recently increased diuretics, advanced HF with hypercatabolic state and ejection fraction of only 25% with severe aortic stenosis, and UTI secondary to Escherichia coli. improving slowly. However, likely not to make much progress due to chronic heart disease and chronic kidney disease.. -We will continue PT -Heart healthy and renal diet -Continue diuresis, as Bumex 1 mg by mouth twice a day was not very effective, nephrology has started a Lasix drip yesterday. Will continue Lasix drip. -Continue antibiotics as mentioned below # Acute dyspnea secondary to fluid overload w/ ADHF in the setting of CKDIV, POA , repeat TTE showed decreased EF20-25% from 30-35% in , [id number] -Patient started on a Lasix drip yesterday per nephrology -Continue Coreg 18.75 mg by mouth twice a day -Continue strict I's and O's, and daily weights -Nephrology has recommended removal of the Jefferson catheter. # KAYLEE on CKDIV, present on admission, eGFR close to ESRD, severe uremia, no obvious signs and symptoms of uremia -Appreciate nephrology input, avoid renal toxin, adjust meds, continue weekly Epogen as per nephrology -We will follow nephrology team's recommendations as follows: -Acute kidney injury on chronic kidney disease stage IV - reaching toward ESRD. - Patient's condition is very delicate. High dose diuretic is required for his complicated heart condition yet it can deteriorate his kidney function. - He was willing to proceed with HD if it could make him live longer. Likewise, his would like to give it a try. However, this afternoon he seems to be changing his mind and wants to just go home. - They understand risks and benefits of being on renal replacement therapy. - We will arrange for tunneled catheter on Tuesday and will arrange for OP HD. - Meantime, I will add lV lasix 80 mg x1 today." # UTI secondary to Escherichia coli, present on admission. -Continue ceftriaxone. chronic, stable # DM2, present on admission, diet Controlled, stable # Hyperthyroidism, Euthyroid state, continue Levothyroxine.75mcg # Chronic Dysphagia, POA, secondary to SCC of neck s/p radiation, continue dysphagia Mechanical Diet, appreciate speech eval recs. pt did tolerate diet today. # Paroxysmal Atrial Fibrillation, POA, Not on anticoagulation due to bleeding history # CAD hx of MD in 1984, and probable acute coronary syndrome in 2012, NSTEMI (no interventions), TTE showed worsening EF, stable mod-severe MR. 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 Goff and is now a DNR/DNI. Initiate Dr. Goff's input and help. Prior to getting a hemodialysis catheter placed, patient showed little visible signs of life and a rapid response to his room was called. Upon entering the room the patient was lifeless so no visible signs of life. Pupils were fixed and dilated patient had no respirations. Patient had no heart tones. Patient had no reflexes. Patient was pronounced . Sherri was consoled. Spiritual care was present as well to help console the patient's . Exam Test 10/24/16 20:00 10/24/16 23:26 10/25/16 05:05 10/26/16 05:20 Troponin T 0.119ug/L (0.0-0.011) Pro-B-Type Natriuretic Peptide 41983um/mL (0-486) Hold Palomo Top Tube Received (Received) Urine Color Yellow (YELLOW) Urine Appearance Slightly cloudy Urine pH 5.5 (5.0-8.0) Urine Specific [place] 1.015 (1.003-1.035) Urine Protein Tracemg/dL (NEG,TRACE) Urine Glucose (UA) Negativemg/dL (NEGATIVE) Urine Ketones Negativemg/dL (NEGATIVE) Urine Occult Blood Moderate (NEGATIVE) Urine Nitrite Negative (NEGATIVE) Urine Bilirubin Negative (NEGATIVE) Urine Urobilinogen Normalmg/dL (NORMAL) Urine Leukocyte Esterase Large (NEGATIVE) Urine RBC 3-10/hpf (0-2) Urine WBC Packed/hpf (0-5) Urine Epithelial Cells Few/hpf (NONE-MOD) Urine Crystals None seen (NONE SEEN) Urine Bacteria Many/hpf (NONE-FEW) Urine Hyaline Casts None/lpf (NONE) Urine Granular Casts None seen (NONE SEEN) Urine Waxy Casts None seen (NONE SEEN) Urine Red Blood Cell Casts None seen (NONE SEEN) Urine White Blood Cell Casts None seen (NONE SEEN) Urine Mucus None seen (None Seen) Urine Trichomonas None seen (NONE SEEN) Urine Yeast None (NONE SEEN) Urine Culture Reflexed Indicated Thyroid Stimulating Hormone (TSH) 6.710uIU/mL (0.450-4.500) Free Thyroxine 1.28ng/dL (0.82-1.77) Iron Level 31ug/dL (35-150) Total Iron Binding Capacity 246ug/dL (250-450) Percent Iron Saturation 13%sat (15-50) Unsaturated Iron Binding 215.3ug/dL Ferritin 154ng/mL (30-400) Test 10/28/16 06:25 10/30/16 05:35 11/01/16 06:30 Phosphorus Level 5.5mg/dL (2.5-4.9) Magnesium Level 2.2mg/dL (1.6-2.6) Procalcitonin 0.43ng/mL (See Comment) White Blood Count 9.5th/mm3 (3.8-10.1) Red Blood Count 3.68mil/mm3 (4.40-5.80) Hemoglobin 11.1g/dL (13.8-17.2) Hematocrit 35.5% (41.0-50.0) Mean Corpuscular Volume 96.5fL (81-100) Mean Corpuscular Hemoglobin 30.2pg (27.0-35.0) Mean Corpuscular Hemoglobin Concent 31.3% (32.0-37.0) Red Cell Distribution Width 16.2% (12.3-15.4) Platelet Count 148bil/L (150-400) Neutrophils (%) (Auto) 81.0% (40-74) Lymphocytes (%) (Auto) 9.4% (14-46) Monocytes (%) (Auto) 7.5% (4-12) Eosinophils (%) (Auto) 0.9% (0-5) Basophils (%) (Auto) 0.8% (0-3) Prothrombin Time 12.7sec (8.1-12.5) Prothromb Time International Ratio 1.18ratio Activated Partial Thromboplast Time 28.0sec (22.8-33.0) Sodium Level 150mEq/L (134-144) Potassium Level 4.2mEq/L (3.5-5.2) Chloride Level 106mEq/L (97-108) Carbon Dioxide Level 27mmol/L (18-29) Blood Urea Nitrogen 104mg/dL (8-27) Creatinine 3.09mg/dL (0.76-1.27) Estimat Glomerular Filtration Rate 21mL/min (>59) Glucose Level 156mg/dL (60-99) Calcium Level 9.3mg/dL (8.5-10.1) Total Bilirubin 0.5mg/dL (0.0-1.2) Aspartate Amino Transf (AST/SGOT) 20U/L (0-50) Alanine Aminotransferase (ALT/SGPT) 11U/L (0-44) Alkaline Phosphatase 94U/L (25-160) Total Protein 6.9g/dL (6.4-8.4) Albumin 3.5g/dL (3.4-5.0) Microbiology Results Name: GABRIEL HOLLEY Age/Sex: 85/M Attend Dr: Shirlene Arora MD Acct: [id number] Unit: [id number] Status: ADM IN Location: [facility] [place] 3002-1 Re10/24/16 Disch: Specimen: [id number] Collected: 10/24/16 Status: COMP Req#: [id number] Received: 10/24/16 Source: URINE CC Sp Desc : PP Anup Dr: Jagjit Saleem MD Ordered: URINE CULT Procedure Result Verified Site Microbiology DIO CULT URINE Final 10/27/16-0746 Organism 1 ESCHERICHIA COLI U COLONY COUNT/QUANTITY >100,000 CFU/ml Cefazolin-predicts results for the oral agents, cefaclor,cefdinir, cefpodoximen, cefprozil, cefuroximne axetil, cephalexin and loracarbed when used for therapy of uncomplicated UTI's due to E. coli, K. pneumoniae, and Proteus mirabilis. Cefpodoxime, cefdinir and cefuroxime axetil may be tested individually because some isolates may be susceptible to these agents while testing resistant to cefazolin. (CLSI C981-D61 pg 53) 1. ESCHERICHIA COLI M.I.C Interp --------- ------ * AMOXICILLIN/CLAVULATE <=2 S * AMPICILLIN <=2 S * CEFAZOLIN (CEPHALOSPORIN) UTI 4 S * CEFEPIME <=1 S * CEFTRIAXONE <=1 S * CEFUROXIME SODIUM 4 S * CIPROFLOXACIN <=0.25 S * ERTAPENEM <=0.5 S * GENTAMICIN <=1 S * IMIPENEM <=1 S * LEVOFLOXACIN <=0.12 S * NITROFURANTOIN <=16 S * TETRACYCLINE <=1 S * TOBRAMYCIN <=1 S * TRIMETHOPRIM/SULFAMETHOXAZOLE <=20 S Kael Tucker MD Nov 02, 2016 00:41
== END 2016-11-01 14:25 | disposition expired | DRG 682 ==
LOC: EDBD 19:34 → SED 19:34 → MPC 23:01 → OBSVTOIN 23:01
PROVIDERS: ADMIT Specialist; ATTEND Specialist
DX: N17.9 Acute kidney failure, unspecified (principal); J69.0 Pneumonitis due to inhalation of food and vomit; I50.23 Acute on chronic systolic (congestive) heart failure; J96.90 Respiratory failure, unspecified, unspecified whether with hypoxia or hypercapnia; I13.2 Hypertensive heart and chronic kidney disease with heart failure and with stage 5 chronic kidney disease, or end stage renal disease; I48.92 Unspecified atrial flutter; N39.0 Urinary tract infection, site not specified; L03.115 Cellulitis of right lower limb; J44.9 Chronic obstructive pulmonary disease, unspecified; Z86.73 Personal history of transient ischemic attack (TIA), and cerebral infarction without residual deficits; Z79.82 Long term (current) use of aspirin; E78.5 Hyperlipidemia, unspecified; I25.10 Atherosclerotic heart disease of native coronary artery without angina pectoris; I48.0 Paroxysmal atrial fibrillation; E03.9 Hypothyroidism, unspecified; Z87.891 Personal history of nicotine dependence; R62.7 Adult failure to thrive; D63.1 Anemia in chronic kidney disease; R13.10 Dysphagia, unspecified; I25.5 Ischemic cardiomyopathy; N18.6 End stage renal disease; I27.2 Other secondary pulmonary hypertension; Z95.0 Presence of cardiac pacemaker; M10.9 Gout, unspecified; E11.21 Type 2 diabetes mellitus with diabetic nephropathy; Z85.828 Personal history of other malignant neoplasm of skin; Z66 Do not resuscitate; B96.20 Unspecified Escherichia coli [E. coli] as the cause of diseases classified elsewhere